=== PATIENT | female | born 1940 | race Caucasian/White ===

== ENCOUNTER 2018-07-15 12:06 | Inpatient (IN) ==
--- NOTE | 2018-07-15 12:38 | Emergency Department Note ---
[facility] Disposition Clinical Impression: Abdominal pain Disposition: Still a Patient Condition on Discharge: Fair Referrals: Provider,Referral, [Primary Care Provider] - Time of Disposition: 12:41 Medical Decision Making - Dyllan Inquiry Pt receiving controlled substance: No Medical Decision Narrative: Sent to ER for imaging, workup - r/o bowel obstruction, pancreatitis, etc [facility] [place] [facility] HPI - General Stated complaint: swalling and stomach problems Time Seen by Provider: 07/15/18 12:24 - History of Present Illness Provider Complaint: Patient has had abdominal pain since last night. Epigastric pain, radiating into her back. Started while watching TV. H/O constipation but no abdominal surgeries or bowel obstruction. Daughter states she stopped taking all meds 2 years ago. States she vomits after every meal and has lost 50 pounds. Feels like food gets hung in her throat. Doesn't have good bowel movements and uses enemas frequently. Tried enema last night but it was very painful and she did not have any results. Very small bowel movement this am but did not relieve pain. Feels like abdomen is swollen and tight as well. No dysuria. Onset (ago): day(s) (1) Location: abdomen Relieving factors: none Exacerbating factors: none Associated symptoms: nausea/vomiting Treatments prior to arrival: none - Related Data Allergies Allergy/AdvReac Type Severity Reaction Status Date / Time From BENADRYL TP CRE 1%-0.1% Allergy Unknown BREAKS Uncoded 06/28/17 15:33 OUT, ITCHING [facility] History - Hepatitis A Screen Attestation statement:: This patient has been screened for Hepatitis A risk factors. I have reviewed the patient's past medical history: Yes ROS Obtained: Yes All systems reviewed & no additional complaints - Constitutional Constitutional: Denies fever(s) - Gastrointestinal Gastrointestingal: Reports: abdominal pain, constipation, dysphagia Physical Exam - General General appearance: alert, in no apparent distress - Head Head exam: atraumatic, normocephalic, normal inspection - Eye Eye exam: Present: normal appearance, PERRL, EOMI - ENT ENT exam: Present: normal exam, normal oropharynx, mucous membranes moist, TM's normal bilaterally, normal external ear exam - Neck Neck exam: Present: normal inspection, full ROM, trachea midline. Absent: meningismus, lymphadenopathy - Chest Chest inspection: Present: normal inspection, symmetric chest wall rise. Absent: tenderness - Respiratory Respiratory exam: Present: normal lung sounds bilaterally. Absent: respiratory distress - Cardiovascular Cardiovascular exam: Present: regular rate, normal rhythm. Absent: JVD - Abdominal Exam Abdominal exam: Present: soft, distention, tenderness, diminished bowel sounds. Absent: guarding, rebound, rigidity - Extremities Exam Extremities exam: Present: normal inspection, full ROM, normal capillary refill. Absent: calf tenderness - Back Exam Back exam: Present: normal inspection. Absent: tenderness - Neurological Exam Neurological exam: Present: alert, oriented X3 - Psychiatric Psychiatric exam: Present: normal affect, normal mood - Skin Skin exam: Present: warm, dry, intact, normal color - Lymphatic Lymphatic Findings: no adenopathy
[2018-07-15 13:12] LABS: Microscopic, Urine URINE MICROSCOPIC (MICROSCOPIC)
[2018-07-15 13:15] LABS: Basophils % 0.3 % (0.1-2.0); Eosinophils % 0.5 % (0.1-12.0); Hemoglobin 16.1 g/dL (12.2-16.2); Lymphocytes % 18.3 % (10-50); Mean Corpuscular HGB Conc 32.3 g/dL (31.8-35.4); Mean Corpuscular Hemoglobin 31.7 pg (27.0-31.2); Mean Corpuscular Volume 98.1 fl (81-99); Mean Platelet Volume 8.2 fl (7.4-10.4); Monocytes # 0.3 K/mm3 (0.1-1.0); Monocytes % 5.9 % (1.7-9.3); Neutrophils # 4.1 K/mm3 (1.8-7.8); Platelet Count 162 K/mm3 (142-424); Red Cell Distribution Width 13.1 % (11.5-17.5); White Blood Count 5.5 K/mm3 (4.8-10.8)
[2018-07-15 13:16] LABS: Appearance,Urine CLEAR (Clear); Blood, Urine Negative (Negative); Color,Urine DK YELLOW (Yellow); Glucose,Urine (UA) Negative (Negative); Ketones,Urine TRACE (Negative); Leukocyte Esterase,Urine Negative (Negative); Protein,Urine 1+ (Negative); Specific Gravity, Urine >= 1.030 (1.005-1.030)
[2018-07-15 13:26] LABS: Alanine Aminotransferase 416 U/L (12-78); Albumin Level 3.5 gm/dL (3.4-5.0); Albumin/Globulin Ratio 0.9 (1.1-1.8); Alkaline Phosphatase 167 U/L (46-116); Anion Gap 11.4 mEq/L (5-15); Aspartate Amino Transferase 530 U/L (15-37); Bilirubin,Total 2.2 mg/dL (0.2-1.0); Blood Urea Nitrogen 13 mg/dL (7-18); Calcium 8.5 mg/dL (8.5-10.1); Carbon Dioxide 29 mmol/L (21.0-32.0); Chloride 104 mmol/L (98-107); Globulin 3.8 gm/dl (1.3-3.2); Glucose 150 mg/dL (74-106); Potassium 3.4 mmoL/L (3.5-5.1); Sodium 141 mmol/L (136-145); Total Protein,Serum 7.3 gm/dL (6.4-8.2)
--- NOTE | 2018-07-15 13:35 | Emergency Department Note ---
ED Disposition Clinical Impression: Abdominal pain, Acute cholecystitis due to biliary calculus, Acute pancreatitis Disposition: Still a Patient Condition on Discharge: Fair - Critical Care Critical Care Time: No Attestation: On 07/15/18, the high probability of a clinically significant, sudden or life threatening deterioration of the following system(s) required my full and direct attention, intervention and personal management. The time I documented below is in addition to time spent performing reported procedures but includes the following listed in this critical care notation. Medical Decision Making - Dyllan Inquiry Pt receiving controlled substance: No Dyllan was queried for this patient: No Vital Signs: 07/15/18 12:06 07/15/18 12:44 07/15/18 13:32 Temperature 97.8 F 97.8 F Temperature Source Oral Oral Pulse Rate [Left Radial] 86 73 72 Respiratory Rate 18 16 18 Blood Pressure [Right Arm] 170/71 H 151/85 H 142/65 H Blood Pressure Mean [Right Arm] 104 107 90 Blood Pressure Source [Right Arm] Automatic Cuff Automatic Cuff Blood Pressure Position [Right Arm] Sitting Sitting Sitting 02 Sat by Pulse Oximetry 97 98 99 Oxygen Delivery Method Room Air Room Air Room Air 07/15/18 15:00 Temperature Temperature Source Pulse Rate [Left Radial] 65 Respiratory Rate 18 Blood Pressure [Right Arm] 148/64 H Blood Pressure Mean [Right Arm] 92 Blood Pressure Source [Right Arm] Automatic Cuff Blood Pressure Position [Right Arm] Sitting 02 Sat by Pulse Oximetry 99 Oxygen Delivery Method Room Air - Lab Data Lab Results 07/15/18 13:00: WBC 5.5, RBC 5.10, Hgb 16.1, Hct 50.0 H, MCV 98.1, MCH 31.7 H, MCHC 32.3, RDW 13.1, Plt Count 162, MPV 8.2, Neut % (Auto) 75.0, Lymph % (Auto) 18.3, [place] % (Auto) 5.9, Eos % (Auto) 0.5, Baso % (Auto) 0.3, Neut # (Auto) 4.1, Lymph # (Auto) 1.0, [place] # (Auto) 0.3, Eos # (Auto) 0.0, Baso # (Auto) 0.0 07/15/18 13:00: Sodium 141, Potassium 3.4 L, Chloride 104, Carbon Dioxide 29, Anion Gap 11.4, BUN 13, Creatinine 0.88, Estimated Creat Clear 41, Estimated GFR 62, Est GFR ( Amer) 75, Glucose 150 H, Calcium 8.5, Total Bilirubin 2.2 H , AST 530 H*, ALT 416 H*, Alkaline Phosphatase 167 H, Troponin I < 0.02, Total Protein 7.3, Albumin 3.5, Globulin 3.8 H, Albumin/Globulin Ratio 0.9 L, Amylase 1751 H*, Lipase 56992 H 07/15/18 13:09: Urine Color Dk yellow, Urine Appearance Clear, Urine pH 6.0, Ur Specific [place] >= 1.030, Urine Protein 1+, Urine Glucose (UA) Negative, Urine Ketones Trace, Urine Blood Negative, Urine Nitrate Positive, Urine Bilirubin 3+ A, Urine Urobilinogen 1.0, Ur Leukocyte Esterase Negative, Urine RBC Occasional, Urine WBC 3-5, Ur Squamous Epith Cells Occasional, Urine Bacteria Trace Result diagrams: 07/15/18 13:00 07/15/18 13:00 Orders (Tests/Meds): ED MEDICATIONS Generic Name Dose Route Start Last Admin Trade Name Freq PRN Reason Stop Dose Admin Sodium Chloride 10 ml 07/15/18 13:26 Saline Flush 10ml Syringe IV 08/14/18 13:25 NEEDED PRN Maintain IV Site Discontinued Medications Generic Name Dose Route Start Last Admin Trade Name Freq PRN Reason Stop Dose Admin Diatrizoate Meglum/Diatrizoate Sod 30 ml 07/15/18 13:28 07/15/18 13:32 Gastrografin 66%-10% 30ml PO 07/15/18 13:29 30 ml ONCE ONE Administration Iopamidol 75 ml 07/15/18 14:12 07/15/18 14:12 [id number]; 75ml Vial IV 07/15/18 14:13 75 ml ONCE ONE Administration Protocol Metoclopramide HCl 5 mg 07/15/18 13:39 07/15/18 14:22 Reglan 10mg/2ml Vial IVP 07/15/18 13:40 5 mg ONCE ONE Administration Morphine Sulfate 2 mg 07/15/18 13:39 07/15/18 14:22 Morphine 2mg/Ml Syringe IV 07/15/18 13:40 2 mg ONCE ONE Administration Sodium Chloride 10 ml 07/15/18 14:12 07/15/18 14:12 Rad-Saline Flush 10ml Syringe IV 07/15/18 14:13 10 ml ONCE ONE Administration ORDERS Category Date Time Status US abdomen limited Stat Exams 07/15/18 13:44 Taken XR chest 2V Stat Exams 07/15/18 12:50 Taken Urinalysis-Acute [Urinalysis and Microscopic] Stat Lab 07/15/18 13:09 Ordered - Radiology Data #2 Image(s): Chest Image Reviewed: Yes I reviewed the patient's radiology image Preliminary Findings: Normal/NAD - ECG Data Tracing #1 Normal sinus rhythm 63/min right ulnar branch block, LVH changes, nonspecific T wave changes no acute findings unchanged from prior EKG dated August 11, 2014 ECG initial impression date: 07/15/18 ECG initial impression time: 13:05 Medical Decision Narrative: The patient underwent normal CBC her ultrasound was positive for gallbladder thickening and pancreatic edema that is consistent with her elevated LFTs, amylase and lipase, her CBD was 3 mm. I discussed with Dr. BOLTON the surgeon who advised the patient to be admitted. Eye contact Dr. Ferrer who agreed to admit her for IV fluids, IV antibiotics and surgical consultation. Abdominal Pain HPI - General Chief Complaint: Abdominal Pain Stated Complaint: swalling and stomach problems Time Seen by Provider: 07/15/18 12:24 Mode of Arrival: Ambulatory Source of Information: Patient Limitations: No Limitations Description of Symptoms (Recalled from ER Triage Doc. by RN): to ed per pvt car with c/o upper abd pain radiating into back starting today +nausea, +sob +vomiting x 1 year. states 50lb weight loss in past year. pt with hx of schitzophrenia quit taking meds approx 1 year ago. - History of Present Illness HPI narrative: 77 years old white female with schizophrenia, hypertension, and chronic abdominal complaints involving dysphagia, chronic constipation responds to enema, and postprandial nausea and vomiting. Yesterday after having a bowel movement she developed right-sided abdominal pain associated with nausea without vomiting, no hematemesis no coffee-ground emesis no melanotic stool or bleeding per rectum. She denies chest pain shortness of breath, hemoptysis palpitations flank pain dysuria hematuria or frequency. She reports the pain as sharp radiating to the back worse with standing and relieved by lying down. MD complaint: abdominal pain Onset (ago): day(s) (one day.) Consistency: constant Location: RLQ Severity: moderate Severity scale (1-10): 6 Quality: stabbing Radiation: R flank Relieving factors: other (supine position.) Exacerbating factors: other (standing. ) Associated symptoms: nausea, other (dysphagia, these symptoms are chronic. ) - Related Data Home Medications Medication Instructions Recorded Confirmed No Known Home Medications 07/15/18 07/15/18 Allergies Allergy/AdvReac Type Severity Reaction Status Date / Time From BENADRYL TP CRE 1%-0.1% Allergy Unknown BREAKS Uncoded 06/28/17 15:33 OUT, ITCHING [facility] History - Hepatitis A Screen Drug use history?: No High risk sexual behaviors?: No History of sexually transmitted infection?: No Currently employed?: No Childcare worker?: No Do you have indoor plumbing?: Yes Do you have electricity?: Yes Attestation statement:: This patient has been screened for Hepatitis A risk factors. I have reviewed the patient's past medical history: No - Social History Educational Level: Completed High School Alcohol Intake: never - Psychiatric History Expresses thoughts of harming self/others: None Suicide Plan Description: No Plan ROS Obtained: Yes All systems reviewed & no additional complaints Physical Exam - General General appearance: alert, in no apparent distress - Head Head exam: atraumatic, normocephalic, normal inspection - Eye Eye exam: Present: normal appearance, PERRL, EOMI. Absent: scleral icterus, nystagmus - ENT ENT exam: Present: normal exam, normal oropharynx, mucous membranes moist, TM's normal bilaterally, normal external ear exam - Neck Neck exam: Present: normal inspection, full ROM, trachea midline. Absent: tenderness, meningismus, lymphadenopathy - Chest Chest inspection: Present: normal inspection, symmetric chest wall rise. Absent: tenderness - Respiratory Respiratory exam: Present: normal lung sounds bilaterally. Absent: respiratory distress, wheezes, stridor - Cardiovascular Cardiovascular exam: Present: regular rate, normal rhythm, normal heart sounds. Absent: JVD - Abdominal Exam Abdominal exam: Present: soft, tenderness, rigidity, normal bowel sounds, other (The patient has diffuse abdominal tenderness to superficial palpation with no focal tenderness, voluntary rigidity and guarding, no distention, and positive bowel sounds.). Absent: distention, guarding, rebound, Manning's sign, tenderness at McBurney's Point - Rectal Exam Rectal exam: Present: normal inspection, normal rectal tone, heme (-) stool. Absent: fecal impaction, hemorrhoids, mass, tenderness - External exam: Present: normal external exam - Extremities Exam Extremities exam: Present: normal inspection, full ROM, normal capillary refill. Absent: calf tenderness - Back Exam Back exam: Present: normal inspection. Absent: tenderness, CVA tenderness (R), CVA tenderness (L), paraspinal tenderness, vertebral tenderness - Neurological Exam Neurological exam: Present: alert, oriented X3, CN II-XII intact, motor sensory deficit, reflexes normal - Psychiatric Psychiatric exam: Present: normal affect, normal mood - Skin Skin exam: Present: warm, dry, intact, normal color - Lymphatic Lymphatic Findings: no adenopathy
[2018-07-15 13:47] LABS: Amylase 1751 U/L (25-115)
[2018-07-15 13:50] LABS: Bacteria,Urine Trace /lpf; RBC,Urine Occasional #/hpf (0-3); Squamous Epithelial Cell,Urine Occasional #/hpf (0-5)
[2018-07-15 13:52] LABS: Bilirubin,Urine 3+ (Negative)
[2018-07-15 14:02] LABS: Lipase 26305 u/L (73-393)
--- NOTE | 2018-07-15 17:39 | Consult Report ---
*Admission Date: 07/15/18 *Chief complaint: Abdominal pain *History of present illness: Patient is a pleasant 77-year-old white female with reported history of bipolar disorder who has not seen a physician for several years. She states that she does have some issues with chronic constipation. She states that last night between 10 or 11:00 she had developed onset of mid abdominal pain. This transiently improved after she had taken some Aleve and then recurred approximately 2 or 3:00 in the morning. She has no prior similar history. No known prior history of gallbladder disease. She had presented to the emergency department where she was seen and evaluated. Blood work revealed evidence of pancreatitis with elevated pancreatic enzymes. She does have some water elevation of. White blood cell count is normal. CT scan reveals radiographic evidence of gallstones and pancreatitis. She had ultrasound revealing gallstones with 3 mm common bile duct. Surgery was contacted. She was admitted for inpatient management to the medical service with surgical consultation. Review of Systems - Review of Systems Review of systems:: pertinent systems reviewed and negative unless documented below - Constitutional Reports anorexia, Denies chills - Eyes Denies change in vision - ENT Denies abnormal hearing - *Cardiovascular Denies chest pain - *Respiratory Denies cough - *Gastrointestinal Reports abdominal pain - *Genitourinary Denies blood in urine - *Musculoskeletal Denies abnormal walking [facility] History Medical History: Reports:: Hypertension - *Social History Educational Level: Completed High School Alcohol Intake: never Occupational Status: retired Housing: house Household Members: family - Psychiatric History Expresses thoughts of harming self/others: None Suicide Plan Description: Clear *Family Hx:: Cancer, Coronary Artery Disease, Diabetes, Heart Attack, Hyperlipidemia, Hypertension Meds Home Medications Medication Instructions Recorded Confirmed Type No Known Home Medications 07/15/18 07/15/18 History Allergies Allergy/AdvReac Type Severity Reaction Status Date / Time From BENADRYL TP CRE 1%-0.1% Allergy Unknown BREAKS Uncoded 06/28/17 15:33 OUT, ITCHING Exam Vital signs and Labs for Last 24 Hours: Temp Pulse Resp BP Pulse Ox 98.4 F 78 20 146/56 H 98 07/15/18 16:20 07/15/18 16:20 07/15/18 16:20 07/15/18 16:20 07/15/18 16:20 Laboratory Results - last 24 hr 07/15/18 13:00: WBC 5.5, RBC 5.10, Hgb 16.1, Hct 50.0 H, MCV 98.1, MCH 31.7 H, MCHC 32.3, RDW 13.1, Plt Count 162, MPV 8.2, Neut % (Auto) 75.0, Lymph % (Auto) 18.3, [place] % (Auto) 5.9, Eos % (Auto) 0.5, Baso % (Auto) 0.3, Neut # (Auto) 4.1, Lymph # (Auto) 1.0, [place] # (Auto) 0.3, Eos # (Auto) 0.0, Baso # (Auto) 0.0 07/15/18 13:00: Sodium 141, Potassium 3.4 L, Chloride 104, Carbon Dioxide 29, Anion Gap 11.4, BUN 13, Creatinine 0.88, Estimated Creat Clear 41, Estimated GFR 62, Est GFR ( Amer) 75, Glucose 150 H, Calcium 8.5, Total Bilirubin 2.2 H , AST 530 H*, ALT 416 H*, Alkaline Phosphatase 167 H, Troponin I < 0.02, Total Protein 7.3, Albumin 3.5, Globulin 3.8 H, Albumin/Globulin Ratio 0.9 L, Amylase 1751 H*, Lipase 38864 H 07/15/18 13:00: Lactate Dehydrogenase 595 H 07/15/18 13:09: Urine Color Dk yellow, Urine Appearance Clear, Urine pH 6.0, Ur Specific [place] >= 1.030, Urine Protein 1+, Urine Glucose (UA) Negative, Urine Ketones Trace, Urine Blood Negative, Urine Nitrate Positive, Urine Bilirubin 3+ A, Urine Urobilinogen 1.0, Ur Leukocyte Esterase Negative, Urine RBC Occasional, Urine WBC 3-5, Ur Squamous Epith Cells Occasional, Urine Bacteria Trace I & O for Last 24 hours: Intake & Output 07/13/18 07/14/18 07/15/18 07/16/18 11:59 11:59 11:59 11:59 Weight 123 lb 5 oz - *Routine HEENT Exam Head: Present: normocephalic Eye: Present: EOMI, PERRL ENT: Present: mucous membranes moist - *Routine Neck Exam Present: supple. Absent: lymphadenopathy - *Routine Respiratory Exam Present: CTA bilaterally - *Routine Cardiovascular Exam Present: RRR - *Routine Abdominal Exam Present: soft, normoactive bowel sounds, tenderness. Absent: rebound, guarding Comments: Patient is tender in the epigastrium and right upper quadrant without rebound. - *Routine Extremities Exam Absent: cyanosis, clubbing, edema - *Routine Skin Exam Present: warm. Absent: rash - *Routine Neurological Exam Present: alert, oriented X3 - Detailed Eye Exam Eyelids: Left normal inspection Results - Labs 07/15/18 13:00 07/15/18 13:00 Laboratory Results - last 24 hr 07/15/18 13:00: WBC 5.5, RBC 5.10, Hgb 16.1, Hct 50.0 H, MCV 98.1, MCH 31.7 H, MCHC 32.3, RDW 13.1, Plt Count 162, MPV 8.2, Neut % (Auto) 75.0, Lymph % (Auto) 18.3, [place] % (Auto) 5.9, Eos % (Auto) 0.5, Baso % (Auto) 0.3, Neut # (Auto) 4.1, Lymph # (Auto) 1.0, [place] # (Auto) 0.3, Eos # (Auto) 0.0, Baso # (Auto) 0.0 07/15/18 13:00: Sodium 141, Potassium 3.4 L, Chloride 104, Carbon Dioxide 29, Anion Gap 11.4, BUN 13, Creatinine 0.88, Estimated Creat Clear 41, Estimated GFR 62, Est GFR ( Amer) 75, Glucose 150 H, Calcium 8.5, Total Bilirubin 2.2 H , AST 530 H*, ALT 416 H*, Alkaline Phosphatase 167 H, Troponin I < 0.02, Total Protein 7.3, Albumin 3.5, Globulin 3.8 H, Albumin/Globulin Ratio 0.9 L, Amylase 1751 H*, Lipase 23822 H 07/15/18 13:00: Lactate Dehydrogenase 595 H 07/15/18 13:09: Urine Color Dk yellow, Urine Appearance Clear, Urine pH 6.0, Ur Specific [place] >= 1.030, Urine Protein 1+, Urine Glucose (UA) Negative, Urine Ketones Trace, Urine Blood Negative, Urine Nitrate Positive, Urine Bilirubin 3+ A, Urine Urobilinogen 1.0, Ur Leukocyte Esterase Negative, Urine RBC Occasional, Urine WBC 3-5, Ur Squamous Epith Cells Occasional, Urine Bacteria Trace Assessment and Plan - Assessment and plan all Dx Assessment and Plan for all problems:: Patient appears to have biliary pancreatitis with secondary cholecystitis. Likelihood of retained common duct stone with ongoing choledocholithiasis is unlikely given the only slight elevation of bilirubin and alkaline phosphatase and 3 mm common bile duct on ultrasound. At this time plan for medical management of the pancreatitis with bowel rest, IV fluid hydration, and antibiotics. If she continues to improve based on clinical scenario and laboratory findings likely plan for cholecystectomy with possible intraoperative cholangiogram in 2 or 3 days. However, if she develops progressive elevation of bilirubin which would be suggestive of ongoing choledocholithiasis she may require more urgent ERCP. At this point would plan for maintaining n.p.o. status other than ice chips. If she shows some improvement may start clear liquids tomorrow. Patient does have appreciable pancreatitis, most assuredly biliary in etiology, meeting 3 of 5 initial Michele's criteria giving a mortality of at least 16%.
[2018-07-16 07:14] LABS: Basophils % 0.2 % (0.1-2.0); Eosinophils # 0.1 K/mm3 (0.0-0.4); Eosinophils % 0.8 % (0.1-12.0); Hematocrit 42.3 % (37.0-47.0); Lymphocytes % 12.2 % (10-50); Mean Corpuscular Hemoglobin 31.4 pg (27.0-31.2); Mean Corpuscular Volume 98.1 fl (81-99); Mean Platelet Volume 8.3 fl (7.4-10.4); Monocytes # 0.5 K/mm3 (0.1-1.0); Monocytes % 5.9 % (1.7-9.3); Neutrophils # 6.7 K/mm3 (1.8-7.8); Neutrophils % 80.9 % (37.0-80.0); Platelet Count 134 K/mm3 (142-424); Red Blood Count 4.31 M/mm3 (4.20-5.40); Red Cell Distribution Width 13.1 % (11.5-17.5); White Blood Count 8.2 K/mm3 (4.8-10.8)
[2018-07-16 07:15] LABS: Hemoglobin 13.5 g/dL (12.2-16.2)
[2018-07-16 07:21] LABS: Albumin Level 2.7 gm/dL (3.4-5.0); Albumin/Globulin Ratio 0.9 (1.1-1.8); Anion Gap 9.5 mEq/L (5-15); Bilirubin,Total 1.1 mg/dL (0.2-1.0); Calcium 7.8 mg/dL (8.5-10.1); Potassium 3.5 mmoL/L (3.5-5.1); Total Protein,Serum 5.7 gm/dL (6.4-8.2)
--- NOTE | 2018-07-16 08:27 | Progress Note ---
Subjective Narrative: Patient's main complaint is not sleeping well due to sinus congestion. She states that her abdomen feels better. It is less "sore". Exam Vital signs and Labs for Last 24 Hours: Temp Pulse Resp BP Pulse Ox 98.8 F 75 22 142/59 H 97 07/16/18 03:40 07/16/18 03:40 07/16/18 03:40 07/16/18 03:40 07/16/18 03:40 Laboratory Results - last 24 hr 07/15/18 13:00: WBC 5.5, RBC 5.10, Hgb 16.1, Hct 50.0 H, MCV 98.1, MCH 31.7 H, MCHC 32.3, RDW 13.1, Plt Count 162, MPV 8.2, Neut % (Auto) 75.0, Lymph % (Auto) 18.3, [place] % (Auto) 5.9, Eos % (Auto) 0.5, Baso % (Auto) 0.3, Neut # (Auto) 4.1, Lymph # (Auto) 1.0, [place] # (Auto) 0.3, Eos # (Auto) 0.0, Baso # (Auto) 0.0 07/15/18 13:00: Sodium 141, Potassium 3.4 L, Chloride 104, Carbon Dioxide 29, Anion Gap 11.4, BUN 13, Creatinine 0.88, Estimated Creat Clear 41, Estimated GFR 62, Est GFR ( Amer) 75, Glucose 150 H, Calcium 8.5, Total Bilirubin 2.2 H , AST 530 H*, ALT 416 H*, Alkaline Phosphatase 167 H, Troponin I < 0.02, Total Protein 7.3, Albumin 3.5, Globulin 3.8 H, Albumin/Globulin Ratio 0.9 L, Amylase 1751 H*, Lipase 03433 H 07/15/18 13:00: Lactate Dehydrogenase 595 H 07/15/18 13:09: Urine Color Dk yellow, Urine Appearance Clear, Urine pH 6.0, Ur Specific [place] >= 1.030, Urine Protein 1+, Urine Glucose (UA) Negative, Urine Ketones Trace, Urine Blood Negative, Urine Nitrate Positive, Urine Bilirubin 3+ A, Urine Urobilinogen 1.0, Ur Leukocyte Esterase Negative, Urine RBC Occasional, Urine WBC 3-5, Ur Squamous Epith Cells Occasional, Urine Bacteria Trace 07/16/18 06:45: Sodium 142, Potassium 3.5, Chloride 108 H, Carbon Dioxide 28, Anion Gap 9.5, BUN 8 D, Creatinine 0.70 D, Estimated Creat Clear 42, Estimated GFR 81, Est GFR ( Amer) 98 D, Glucose 121 H, Calcium 7.8 L, Total Bilirubin 1.1 H, AST 185 H D, ALT 250 H D, Alkaline Phosphatase 130 H, Total Protein 5.7 L, Albumin 2.7 L D, Globulin 3.0, Albumin/Globulin Ratio 0.9 L, Amylase 591 H* D, Lipase 4753 H 07/16/18 06:45: WBC 8.2 D, RBC 4.31, Hgb 13.5 D, Hct 42.3, MCV 98.1, MCH 31.4 H, MCHC 32.0, RDW 13.1, Plt Count 134 L, MPV 8.3, Neut % (Auto) 80.9 H, Lymph % (Auto) 12.2, [place] % (Auto) 5.9, Eos % (Auto) 0.8, Baso % (Auto) 0.2, Neut # (Auto) 6.7, Lymph # (Auto) 1.0, [place] # (Auto) 0.5, Eos # (Auto) 0.1, Baso # (Auto) 0.0 I & O for Last 24 hours: Intake & Output 07/13/18 07/14/18 07/15/18 07/16/18 11:59 11:59 11:59 11:59 Intake Total 1276 / 1276 Balance 1276 / 1276 Weight 123 lb 5 oz - Constitutional no acute distress - *Routine Abdominal Exam Present: soft Comments: She has some tenderness in the upper mid abdomen right upper quadrant without guarding or rebound Progress Note: A&P Assessment and Plan for All Diagnoses:: Patient has resolving biliary pancreatitis. Blood work is improving. At this point plan to give limited clear liquid diet. Continue with medical management of pancreatitis and tentatively, assuming continued improvement, plan for possible cholecystectomy with cholangiogram in a few days.
--- NOTE | 2018-07-16 08:58 | History & Physical Report ---
*Admission Date: 07/15/18 *Chief complaint: andominal pain *History of present illness: 77 year old female who states she has not seen a physician in the past 6 years presented to [facility] ER complaining of abdominal pain associated with nausea and vomiting. She has had these symptoms off and on for some time but that became much worse over the past few days. Emesis consisted of ingested food, she denies diarrhea but has had constipation for quite a long time. She has had subjective fever, no sick contacts or recent travel. She has had some weight loss. [facility] History I have reviewed the patient's past medical history: Yes Medical History: Reports:: Hypertension Other Medical History: Reports: Other (constipation) Comment: Patient does not know her immunization history. - *Social History Educational Level: Completed High School Alcohol Intake: never Occupational Status: retired Housing: house Household Members: family - Psychiatric History Expresses thoughts of harming self/others: None Suicide Plan Description: Clear Pschychiatric History:: Reports:: Bipolar Disorder *Family Hx:: Cancer, Coronary Artery Disease, Diabetes, Heart Attack, Hyperlipidemia, Hypertension Review of Systems - Constitutional Reports chills - Eyes Denies blurry vision - ENT Reports dry mouth - *Cardiovascular Denies chest pain - *Respiratory Denies cough - *Genitourinary Denies difficulty urinating - *Musculoskeletal Denies joint pain - Integumentary/Breasts Denies rash - *Neurologic Denies abnormal walking - Endocrine Denies increased urination - Hematologic/Lymphatic Denies easy bruising Meds Home Medications Medication Instructions Recorded Confirmed Type No Known Home Medications 07/15/18 07/15/18 History Allergies Allergy/AdvReac Type Severity Reaction Status Date / Time diphenhydramine Allergy Rash Verified 07/16/18 08:37 [From Benadryl] Exam Vital signs and Labs for Last 24 Hours: Temp Pulse Resp BP Pulse Ox 99.4 F 83 20 146/52 H 96 07/16/18 08:00 07/16/18 08:00 07/16/18 08:00 07/16/18 08:00 07/16/18 08:00 Laboratory Results - last 24 hr 07/15/18 13:00: WBC 5.5, RBC 5.10, Hgb 16.1, Hct 50.0 H, MCV 98.1, MCH 31.7 H, MCHC 32.3, RDW 13.1, Plt Count 162, MPV 8.2, Neut % (Auto) 75.0, Lymph % (Auto) 18.3, [place] % (Auto) 5.9, Eos % (Auto) 0.5, Baso % (Auto) 0.3, Neut # (Auto) 4.1, Lymph # (Auto) 1.0, Clay # (Auto) 0.3, Eos # (Auto) 0.0, Baso # (Auto) 0.0 07/15/18 13:00: Sodium 141, Potassium 3.4 L, Chloride 104, Carbon Dioxide 29, Anion Gap 11.4, BUN 13, Creatinine 0.88, Estimated Creat Clear 41, Estimated GFR 62, Est GFR ( Amer) 75, Glucose 150 H, Calcium 8.5, Total Bilirubin 2.2 H , AST 530 H*, ALT 416 H*, Alkaline Phosphatase 167 H, Troponin I < 0.02, Total Protein 7.3, Albumin 3.5, Globulin 3.8 H, Albumin/Globulin Ratio 0.9 L, Amylase 1751 H*, Lipase 69234 H 07/15/18 13:00: Lactate Dehydrogenase 595 H 07/15/18 13:09: Urine Color Dk yellow, Urine Appearance Clear, Urine pH 6.0, Ur Specific Daisy >= 1.030, Urine Protein 1+, Urine Glucose (UA) Negative, Urine Ketones Trace, Urine Blood Negative, Urine Nitrate Positive, Urine Bilirubin 3+ A, Urine Urobilinogen 1.0, Ur Leukocyte Esterase Negative, Urine RBC Occasional, Urine WBC 3-5, Ur Squamous Epith Cells Occasional, Urine Bacteria Trace 07/16/18 06:45: Sodium 142, Potassium 3.5, Chloride 108 H, Carbon Dioxide 28, Anion Gap 9.5, BUN 8 D, Creatinine 0.70 D, Estimated Creat Clear 42, Estimated GFR 81, Est GFR ( Amer) 98 D, Glucose 121 H, Calcium 7.8 L, Total Bilirubin 1.1 H, AST 185 H D, ALT 250 H D, Alkaline Phosphatase 130 H, Total Protein 5.7 L, Albumin 2.7 L D, Globulin 3.0, Albumin/Globulin Ratio 0.9 L, Amylase 591 H* D, Lipase 4753 H 07/16/18 06:45: WBC 8.2 D, RBC 4.31, Hgb 13.5 D, Hct 42.3, MCV 98.1, MCH 31.4 H, MCHC 32.0, RDW 13.1, Plt Count 134 L, MPV 8.3, Neut % (Auto) 80.9 H, Lymph % (Auto) 12.2, Clay % (Auto) 5.9, Eos % (Auto) 0.8, Baso % (Auto) 0.2, Neut # (Auto) 6.7, Lymph # (Auto) 1.0, Clay # (Auto) 0.5, Eos # (Auto) 0.1, Baso # (Auto) 0.0 I & O for Last 24 hours: Intake & Output 07/13/18 07/14/18 07/15/18 07/16/18 11:59 11:59 11:59 11:59 Intake Total 1276 / 1276 Balance 1276 / 1276 Weight 123 lb 5 oz - Constitutional no acute distress - *Routine HEENT Exam Head: Present: normocephalic Eye: Present: EOMI ENT: Present: mucous membranes moist - *Routine Neck Exam Present: supple. Absent: lymphadenopathy - *Routine Respiratory Exam Present: CTA bilaterally - *Routine Cardiovascular Exam Present: RRR - *Routine Abdominal Exam Present: soft, normoactive bowel sounds, tenderness (minimal epigastric) - *Routine Extremities Exam Absent: cyanosis, clubbing, edema - *Routine Skin Exam Present: warm. Absent: rash - *Routine Neurological Exam Present: alert. Absent: sensory deficit, motor deficit H&P: Result - Imaging and Cardiology CT scan - abdomen Status: final report US - abdomen Status: final report Chest x-ray Status: final report Assessment and Plan (1) Abdominal pain Current visit: Yes Status: Acute Category: Medical Code(s): R10.9 - Unspecified abdominal pain (2) Acute cholecystitis due to biliary calculus Current visit: Yes Status: Acute Category: Medical Code(s): K80.00 - Calculus of gallbladder with acute cholecystitis without obstruction (3) Acute pancreatitis Current visit: Yes Status: Acute Category: Medical Code(s): K85.90 - Acute pancreatitis without necrosis or infection, unspecified - Assessment and plan all Dx Assessment and Plan for all problems:: Patient admitted for further evaluation and treatment of her acute cholecystitis and panctreatitis. She has improved since admission. Case discussed with Dr. Lopez. He is planning surgery in a few days. OK for clear liquids today.
--- NOTE | 2018-07-16 10:54 | Pharmacy Consult Notes ---
[facility] Pharmacy VTE Monitoring - Patient Demographics Admission date: 07/16/18 Report Date: 07/16/18 Time: 10:53 Allergies/Adverse Reactions: Patient Allergies diphenhydramine [From Benadryl] Allergy (Verified 07/16/18 08:37) Rash Height: 1.63 m Weight: 55.934 kg Patient Problems: Current Active Problems Abdominal pain (Acute) Acute cholecystitis due to biliary calculus (Acute) Acute pancreatitis (Acute) - VTE Risk Labs: VTE Related Lab Results Hgb 13.5 g/dL (12.2-16.2) D 07/16/18 06:45 Hct 42.3 % (37.0-47.0) 07/16/18 06:45 Plt Count 134 K/mm3 (142-424) L 07/16/18 06:45 BUN 8 mg/dL (7-18) D 07/16/18 06:45 Creatinine 0.70 mg/dL (0.55-1.02) D 07/16/18 06:45 Estimated Creat Clear 42 mL/min (50-200) 07/16/18 06:45 Was VTE Risk Assessment Performed: Yes VTE Score: 1 VTE Risk Level: Very Low Risk - Prophylaxis Types of VTE Prophylaxis: TEDS Knee High Location of Applied Device: Bilateral Lower Extremeties (MARY HOSE ORDERED)
[2018-07-17 06:21] LABS: Basophils % 0.2 % (0.1-2.0); Eosinophils # 0.1 K/mm3 (0.0-0.4); Eosinophils % 0.9 % (0.1-12.0); Hematocrit 39.3 % (37.0-47.0); Hemoglobin 12.5 g/dL (12.2-16.2); Lymphocytes # 1.4 K/mm3 (0.7-4.5); Lymphocytes % 15.1 % (10-50); Mean Corpuscular HGB Conc 31.9 g/dL (31.8-35.4); Mean Corpuscular Hemoglobin 31.5 pg (27.0-31.2); Mean Corpuscular Volume 98.8 fl (81-99); Mean Platelet Volume 8.4 fl (7.4-10.4); Monocytes # 0.7 K/mm3 (0.1-1.0); Monocytes % 7.1 % (1.7-9.3); Neutrophils % 76.6 % (37.0-80.0); Platelet Count 136 K/mm3 (142-424); Red Blood Count 3.98 M/mm3 (4.20-5.40); Red Cell Distribution Width 13.4 % (11.5-17.5); White Blood Count 9.1 K/mm3 (4.8-10.8)
[2018-07-17 06:33] LABS: Albumin Level 2.5 gm/dL (3.4-5.0); Albumin/Globulin Ratio 0.8 (1.1-1.8); Anion Gap 11.4 mEq/L (5-15); Bilirubin,Total 1.1 mg/dL (0.2-1.0); Calcium 7.9 mg/dL (8.5-10.1); Potassium 3.4 mmoL/L (3.5-5.1); Total Protein,Serum 5.5 gm/dL (6.4-8.2)
--- NOTE | 2018-07-17 07:51 | Progress Note ---
Subjective Patient reports: feels better Narrative: Patient overall is much better. She did have some mild nausea with clear liquids yesterday. Abdominal pain has improved. She does state that she feels somewhat bloated. Exam Vital signs and Labs for Last 24 Hours: Temp Pulse Resp BP Pulse Ox 98.2 F 78 18 130/50 L 96 07/17/18 04:00 07/17/18 04:00 07/17/18 04:00 07/17/18 04:00 07/17/18 04:00 Laboratory Results - last 24 hr 07/17/18 06:00: WBC 9.1, RBC 3.98 L, Hgb 12.5, Hct 39.3, MCV 98.8, MCH 31.5 H, MCHC 31.9, RDW 13.4, Plt Count 136 L, MPV 8.4, Neut % (Auto) 76.6, Lymph % (Auto) 15.1, [place] % (Auto) 7.1, Eos % (Auto) 0.9, Baso % (Auto) 0.2, Neut # (Auto) 7.0, Lymph # (Auto) 1.4, [place] # (Auto) 0.7, Eos # (Auto) 0.1, Baso # (Auto) 0.0 07/17/18 06:00: Sodium 142, Potassium 3.4 L, Chloride 108 H, Carbon Dioxide 26, Anion Gap 11.4, BUN 4 L D, Creatinine 0.44 L D, Estimated Creat Clear 42, Estimated GFR 139, Est GFR ( Amer) 168 D, Glucose 112 H, Calcium 7.9 L, Total Bilirubin 1.1 H, AST 77 H D, ALT 161 H D, Alkaline Phosphatase 110, Total Protein 5.5 L, Albumin 2.5 L, Globulin 3.0, Albumin/Globulin Ratio 0.8 L, Amylase 155 H D, Lipase 425 H I & O for Last 24 hours: Intake & Output 07/14/18 07/15/18 07/16/18 07/17/18 11:59 11:59 11:59 11:59 Intake Total 1376 / 1376 3205 / 3205 Balance 1376 / 1376 3205 / 3205 Weight 123 lb 5 oz - *Routine Abdominal Exam Present: soft Progress Note: A&P (1) Abdominal pain Status: Acute Current Visit: Yes (2) Acute cholecystitis due to biliary calculus Status: Acute Current Visit: Yes (3) Acute pancreatitis Status: Acute Current Visit: Yes Assessment and Plan for All Diagnoses:: Labs showing continued significant improvement. We will give some full liquids today. Tentatively planned cholecystectomy with possible cholangiogram tomorrow.
--- NOTE | 2018-07-17 08:37 | Progress Note ---
<Tran Hanley - Last Filed: 07/17/18 08:34> Internal Medicine - PN: Subj *Date: 07/17/18 *Time: 08:34 Interval history: Patient states that she is better. She describes her abdomen as being sore. She is very hungry. She did have some nausea last evening but no vomiting. She took clear liquids this morning without difficulties. Bowels have not moved for 4 days. She denies chest pain and shortness of breath. She ambulates to the bathroom without problems and is voiding QS. Liver function studies, amylase, and lipase have significantly improved. She has been seen by Dr. Lopez this a.m. and as per note will have surgery in the a.m.. He has advanced her to full liquids. Exam Vital signs and Labs for Last 24 Hours: Temp Pulse Resp BP Pulse Ox 97.7 F 91 H 16 118/55 L 95 07/17/18 07:55 07/17/18 07:55 07/17/18 07:55 07/17/18 07:55 07/17/18 07:55 Laboratory Results - last 24 hr 07/17/18 06:00: WBC 9.1, RBC 3.98 L, Hgb 12.5, Hct 39.3, MCV 98.8, MCH 31.5 H, MCHC 31.9, RDW 13.4, Plt Count 136 L, MPV 8.4, Neut % (Auto) 76.6, Lymph % (Auto) 15.1, [place] % (Auto) 7.1, Eos % (Auto) 0.9, Baso % (Auto) 0.2, Neut # (Auto) 7.0, Lymph # (Auto) 1.4, [place] # (Auto) 0.7, Eos # (Auto) 0.1, Baso # (Auto) 0.0 07/17/18 06:00: Sodium 142, Potassium 3.4 L, Chloride 108 H, Carbon Dioxide 26, Anion Gap 11.4, BUN 4 L D, Creatinine 0.44 L D, Estimated Creat Clear 42, Estimated GFR 139, Est GFR ( Amer) 168 D, Glucose 112 H, Calcium 7.9 L, Total Bilirubin 1.1 H, AST 77 H D, ALT 161 H D, Alkaline Phosphatase 110, Total Protein 5.5 L, Albumin 2.5 L, Globulin 3.0, Albumin/Globulin Ratio 0.8 L, Amylase 155 H D, Lipase 425 H I & O for Last 24 hours: Intake & Output 07/14/18 07/15/18 07/16/18 07/17/18 11:59 11:59 11:59 11:59 Intake Total 1376 / 1376 3665 / 3665 Balance 1376 / 1376 3665 / 3665 Weight 123 lb 5 oz - Constitutional no acute distress Comments: Appears comfortable lying in the bed. - *Routine Respiratory Exam Present: CTA bilaterally (Anteriorly and posteriorly) - *Routine Cardiovascular Exam Present: RRR - *Routine Abdominal Exam Present: soft, tenderness Comments: Mild distention. Decreased bowel sounds. - *Routine Extremities Exam Present: pulses intact. Absent: edema, calf tenderness - *Routine Neurological Exam Present: alert, oriented X3 Assessment and Plan (1) Abdominal pain Current visit: Yes Status: Acute Category: Medical Code(s): R10.9 - Unspecified abdominal pain (2) Acute cholecystitis due to biliary calculus Current visit: Yes Status: Acute Category: Medical Code(s): K80.00 - Calculus of gallbladder with acute cholecystitis without obstruction (3) Acute pancreatitis Current visit: Yes Status: Acute Category: Medical Code(s): K85.90 - Acute pancreatitis without necrosis or infection, unspecified - Assessment and plan all Dx Assessment and Plan for all problems:: Diet has been advanced to full liquids. We will continue with IV fluids for now. Surgery is planned for the a.m. <Justin Ferrer - Last Filed: 07/17/18 08:44> Exam Vital signs and Labs for Last 24 Hours: Temp Pulse Resp BP Pulse Ox 97.7 F 91 H 16 118/55 L 95 07/17/18 07:55 07/17/18 07:55 07/17/18 07:55 07/17/18 07:55 07/17/18 07:55 Laboratory Results - last 24 hr 07/17/18 06:00: WBC 9.1, RBC 3.98 L, Hgb 12.5, Hct 39.3, MCV 98.8, MCH 31.5 H, MCHC 31.9, RDW 13.4, Plt Count 136 L, MPV 8.4, Neut % (Auto) 76.6, Lymph % (Auto) 15.1, [place] % (Auto) 7.1, Eos % (Auto) 0.9, Baso % (Auto) 0.2, Neut # (Auto) 7.0, Lymph # (Auto) 1.4, [place] # (Auto) 0.7, Eos # (Auto) 0.1, Baso # (Auto) 0.0 07/17/18 06:00: Sodium 142, Potassium 3.4 L, Chloride 108 H, Carbon Dioxide 26, Anion Gap 11.4, BUN 4 L D, Creatinine 0.44 L D, Estimated Creat Clear 42, Estimated GFR 139, Est GFR ( Amer) 168 D, Glucose 112 H, Calcium 7.9 L, Total Bilirubin 1.1 H, AST 77 H D, ALT 161 H D, Alkaline Phosphatase 110, Total Protein 5.5 L, Albumin 2.5 L, Globulin 3.0, Albumin/Globulin Ratio 0.8 L, Amylase 155 H D, Lipase 425 H I & O for Last 24 hours: Intake & Output 07/14/18 07/15/18 07/16/18 07/17/18 11:59 11:59 11:59 11:59 Intake Total 1376 / 1376 3665 / 3665 Balance 1376 / 1376 3665 / 3665 Weight 123 lb 5 oz Assessment and Plan (1) Abdominal pain Current visit: Yes Status: Acute Category: Medical Code(s): R10.9 - Unspecified abdominal pain (2) Acute cholecystitis due to biliary calculus Current visit: Yes Status: Acute Category: Medical Code(s): K80.00 - Calculus of gallbladder with acute cholecystitis without obstruction (3) Acute pancreatitis Current visit: Yes Status: Acute Category: Medical Code(s): K85.90 - Acute pancreatitis without necrosis or infection, unspecified - Assessment and plan all Dx Assessment and Plan for all problems:: Saw patient, agree with above note.
--- NOTE | 2018-07-18 08:27 | Progress Note ---
<Tran Hanley - Last Filed: 07/18/18 08:27> Internal Medicine - PN: Subj Interval history: Patient took full liquid diet yesterday without issues. She has some soreness in her upper abdomen. She had 4 diarrhea stools during the night with last 1 being this a.m.. She does not feel bloated now. She is n.p.o. at present for probable surgery today. She does not know the time. She denies chest pain and shortness breath. She ambulates to the bathroom without difficulty. Exam Vital signs and Labs for Last 24 Hours: Temp Pulse Resp BP Pulse Ox 98.9 F 78 18 128/59 L 96 07/18/18 04:00 07/18/18 04:00 07/18/18 04:00 07/18/18 04:00 07/18/18 04:00 I & O for Last 24 hours: Intake & Output 07/15/18 07/16/18 07/17/18 07/18/18 11:59 11:59 11:59 11:59 Intake Total 1376 / 1376 3765 / 3765 1120 / 1120 Balance 1376 / 1376 3765 / 3765 1120 / 1120 Weight 123 lb 5 oz 123 lb 5.014 oz - Constitutional no acute distress Comments: Awakened for exam - *Routine Respiratory Exam Present: CTA bilaterally (Anteriorly and posteriorly) - *Routine Cardiovascular Exam Present: RRR - *Routine Abdominal Exam Present: soft, normoactive bowel sounds, tenderness. Absent: distended - *Routine Extremities Exam Present: pulses intact. Absent: edema, calf tenderness - *Routine Neurological Exam Present: alert, oriented X3 Assessment and Plan (1) Abdominal pain Current visit: Yes Status: Acute Category: Medical Code(s): R10.9 - Unspecified abdominal pain (2) Acute cholecystitis due to biliary calculus Current visit: Yes Status: Acute Category: Medical Code(s): K80.00 - Calculus of gallbladder with acute cholecystitis without obstruction (3) Acute pancreatitis Current visit: Yes Status: Acute Category: Medical Code(s): K85.90 - Acute pancreatitis without necrosis or infection, unspecified - Assessment and plan all Dx Assessment and Plan for all problems:: Plan is for cholecystectomy sometime today. Labs to be repeated in a.m. <Justin Ferrer - Last Filed: 07/18/18 08:41> Exam Vital signs and Labs for Last 24 Hours: Temp Pulse Resp BP Pulse Ox 98.9 F 78 18 128/59 L 96 07/18/18 04:00 07/18/18 04:00 07/18/18 04:00 07/18/18 04:00 07/18/18 08:00 I & O for Last 24 hours: Intake & Output 07/15/18 07/16/18 07/17/18 07/18/18 11:59 11:59 11:59 11:59 Intake Total 1376 / 1376 3765 / 3765 1120 / 1120 Balance 1376 / 1376 3765 / 3765 1120 / 1120 Weight 123 lb 5 oz 123 lb 5.014 oz Assessment and Plan (1) Abdominal pain Current visit: Yes Status: Acute Category: Medical Code(s): R10.9 - Unspecified abdominal pain (2) Acute cholecystitis due to biliary calculus Current visit: Yes Status: Acute Category: Medical Code(s): K80.00 - Calculus of gallbladder with acute cholecystitis without obstruction (3) Acute pancreatitis Current visit: Yes Status: Acute Category: Medical Code(s): K85.90 - Acute pancreatitis without necrosis or infection, unspecified - Assessment and plan all Dx Assessment and Plan for all problems:: Saw patient, agree with above note.
[2018-07-18 09:03] LABS: Albumin Level 2.6 gm/dL (3.4-5.0); Albumin/Globulin Ratio 0.8 (1.1-1.8); Anion Gap 10.9 mEq/L (5-15); Calcium 8.2 mg/dL (8.5-10.1); Globulin 3.2 gm/dl (1.3-3.2); Potassium 3.9 mmoL/L (3.5-5.1); Total Protein,Serum 5.8 gm/dL (6.4-8.2)
--- NOTE | 2018-07-18 12:31 | Progress Note ---
[facility] Anesthesia Checklist - Patient Identification Patient Identification: Arm Band, Verbal (Name & ) - Structural Data Admitted From: Home Planned Operative Procedure/s: laparoscopic cholecystectomy, IOC Consent for Planned Operative Procedure(s) Verified: Yes Verified Documents: Surgical Consent, History and Physical - NPO Status Verified Time NPO: 00:00 - Chart Verification Results Verified: CBC, BMP - Additional verifications Anesthesia Reactions: No - Airway Assessment C-Spine Mobility Assessed: Yes TMJ Mobility Assessed: Yes Dentition: Good Dentition (missing) - Neurological Assessment Level of Consciousness: Awake Hx Seizures: No Numbness or tingling in extremities: No - Anesthesia Plan Anesthesia Risk discussed: Yes Anesthesia Plan: Verified ASA Class: II Anesthesia Type: General [facility] History I have reviewed the patient's past medical history: Yes Medical History: Reports:: Hypertension, 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) Have you ever received a pneumonia vaccine?: Yes Have you received a flu vaccine this season?: Yes Other Medical History: Reports: Other (constipation) Laterality Cases: Left: Arthroscopy Shoulder (RCR) Other Surgeries: Yes: Tubal Ligation - *Social History Educational Level: Completed High School Alcohol Intake: never Occupational Status: retired Housing: house Household Members: family Travel in the last 8 weeks: None - Psychiatric History Expresses thoughts of harming self/others: None Suicide Plan Description: Clear Pschychiatric History:: Reports:: Bipolar Disorder *Family Hx:: Cancer, Coronary Artery Disease, Diabetes, Heart Attack, Hyperlipidemia, Hypertension
--- NOTE | 2018-07-18 14:10 | Operative Note ---
Date of procedure: 07/18/18 Pre-op Diagnosis:: Biliary pancreatitis Post-op Diagnosis:: Same Procedure performed:: Laparoscopic cholecystectomy with attempted intraoperative cholangiogram Surgeon:: Miguel oLpez MD Anesthesia: UMANG Estimated blood loss (mL): 25 Clinical Note:: Patient is a very pleasant 77-year-old white female. She experienced acute mid abdominal and right upper quadrant pain. She had presented to the emergency department where she was found to have radiographic and chemical evidence of appreciable pancreatitis. Given the laboratory profile and imaging studies this was felt to be biliary in origin. Her symptoms and laboratory values improved. Plan was made for cholecystectomy to alleviate the source of the pancreatitis and for attempted intraoperative cholangiogram to evaluate the biliary tree. Operative findings:: She had some pericholecystic fluid. She had a somewhat thickened gallbladder with multiple small stones. There was friability of the neck of the gallbladder and cystic duct. She had multiple small stones within the gallbladder lumen Operative note:: Consent was obtained. Patient was taken to the operating room. She was given preoperative intravenous antibiotics. In the operating room general anesthesia was induced after she was placed in a supine position. Abdomen was prepped and draped. Subumbilical skin incision was made and while performing abdominal wall lift Veress needle was inserted. CO2 pneumoperitoneum was achieved to 15 mmHg. 11 mm optical trocar was inserted at the umbilicus. Intraperitoneal contents were visualized. She was positioned in reverse Trendelenburg left side down. A couple of 5 mm trochars were inserted in the right upper abdomen. 11 mm trocar was inserted in the epigastrium. Gallbladder was grasped and retracted anteriorly and superiorly over the dome of the liver. Omental adhesions to the gallbladder were taken down using suction with limited use of ELIEZER ultrasonic harmonic gracy. The infundibulum/Cabral's pouch of the gallbladder was retracted anterior laterally. Dissection was carried out at the neck of the gallbladder carefully dissecting out the cystic structures. She appeared to have a rather foreshortened cystic duct. It was quite friable. A clip was placed proximal to the gallbladder. Small incision was made in the cystic duct. Cholangiocatheter introducer was inserted through a small incision in the right upper abdomen. A taut cholangiocatheter was manipulated through the cholangiocatheter and into the cystic duct. However, despite placing several hemoclips there was extravasation of saline flush. Please note that the cystic duct was rather friable. Attempt was made at intraoperative cholangiogram with this placement of the cholangiocatheter. There was extravasation contrast without filling of the biliary tree. At this time due to the potential for ductal injury cholangiogram attempt was aborted as she had of quite friable neck of the gallbladder and cystic duct. The cholangiocatheter was removed and multiple clips were placed on the apparent cystic duct. The cystic duct was then divided sharply. Cystic artery was clearly identified and coagulated with ELIEZER ultrasonic harmonic gracy and divided. Gallbladder was dissected free from the liver in a retrograde fashion using ELIEZER ultrasonic harmonic gracy. Gallbladder was placed within an Endo Catch retrieval device and removed from the peritoneal cavity via the umbilical trocar site. Gallbladder fossa and kristi hepatic space were irrigated and aspirated until clear. Trochars were removed as CO2 pneumoperitoneum was evacuated. Fascia at the umbilicus was closed with a 0 Vicryl [id number] suture. Local anesthetic was infiltrated. Skin incisions were closed with 4-0 Monocryl. Steri-Strips and dressings were applied. Condition: stable Disposition: PACU Specimens:: Gallbladder and contents Complications:: None immediately apparent
--- NOTE | 2018-07-18 14:17 | Progress Note ---
[facility] Anesthesia Record Part I Intake, IV Amount: 700 Estimated blood loss (mL): 20 Urine output (mL): 0 (NM) Blood Products used (#): none Blood Pressure: 157/82 SaO2: 96 Pulse Rate: 96 Respiratory Rate: 16 Temperature: 97.0 F Patient is:: Awake, Stable Stable to PACU at:: 14:10
--- NOTE | 2018-07-18 14:17 | Progress Note ---
[facility] Anesthesia Record Part II Discharge Time: 14:40 Destination: Medical Surgical Department PACU nurse assessment reviewed?: Yes Patient Condition:: Good Anesthesia Complications:: None
--- NOTE | 2018-07-19 06:34 | Progress Note ---
Subjective Narrative: Patient resting. Exam Vital signs and Labs for Last 24 Hours: Temp Pulse Resp BP Pulse Ox 98.0 F 110 H 17 122/66 93 L 07/19/18 04:00 07/19/18 04:00 07/19/18 04:00 07/19/18 04:00 07/19/18 04:00 Laboratory Results - last 24 hr 07/18/18 08:40: Sodium 143, Potassium 3.9, Chloride 109 H, Carbon Dioxide 27, Anion Gap 10.9, BUN 4 L, Creatinine 0.58 D, Estimated Creat Clear 42, Estimated GFR 101, Est GFR ( Amer) 122 D, Glucose 115 H, Calcium 8.2 L, Total Bilirubin 1.0, AST 43 H D, ALT 112 H D, Alkaline Phosphatase 97, Total Protein 5.8 L, Albumin 2.6 L, Globulin 3.2, Albumin/Globulin Ratio 0.8 L, Amylase 48, Lipase 126 I & O for Last 24 hours: Intake & Output 07/16/18 07/17/18 07/18/18 07/19/18 11:59 11:59 11:59 11:59 Intake Total 1376 / 1376 3915 / 3915 1320 / 1320 1365 / 1365 Output Total 0 / 0 Balance 1376 / 1376 3915 / 3915 1320 / 1320 1365 / 1365 Weight 123 lb 5 oz 123 lb 5.014 oz - Constitutional no acute distress Progress Note: A&P (1) Abdominal pain Status: Acute Current Visit: Yes (2) Acute cholecystitis due to biliary calculus Status: Acute Current Visit: Yes (3) Acute pancreatitis Status: Acute Current Visit: Yes Assessment and Plan for All Diagnoses:: Patient underwent lab cholecystectomy yesterday. Cholangiogram was unable to be done safely. Plan for MRCP today to evaluate biliary tree.
[2018-07-19 07:47] LABS: Basophils % 0.2 % (0.1-2.0); Eosinophils # 0.1 K/mm3 (0.0-0.4); Eosinophils % 0.6 % (0.1-12.0); Hematocrit 36.2 % (37.0-47.0); Hemoglobin 11.9 g/dL (12.2-16.2); Lymphocytes # 1.6 K/mm3 (0.7-4.5); Lymphocytes % 16.4 % (10-50); Mean Corpuscular HGB Conc 32.8 g/dL (31.8-35.4); Mean Corpuscular Hemoglobin 32.1 pg (27.0-31.2); Mean Corpuscular Volume 97.8 fl (81-99); Mean Platelet Volume 8.6 fl (7.4-10.4); Monocytes # 0.7 K/mm3 (0.1-1.0); Monocytes % 6.8 % (1.7-9.3); Neutrophils # 7.3 K/mm3 (1.8-7.8); Neutrophils % 76.1 % (37.0-80.0); Platelet Count 157 K/mm3 (142-424); Red Blood Count 3.71 M/mm3 (4.20-5.40); Red Cell Distribution Width 13.1 % (11.5-17.5); White Blood Count 9.5 K/mm3 (4.8-10.8)
--- NOTE | 2018-07-19 07:56 | Progress Note ---
Internal Medicine - PN: Subj *Date: 07/19/18 *Time: 07:56 Exam Vital signs and Labs for Last 24 Hours: Temp Pulse Resp BP Pulse Ox 98.0 F 110 H 17 122/66 93 L 07/19/18 04:00 07/19/18 04:00 07/19/18 04:00 07/19/18 04:00 07/19/18 04:00 Laboratory Results - last 24 hr 07/18/18 08:40: Sodium 143, Potassium 3.9, Chloride 109 H, Carbon Dioxide 27, Anion Gap 10.9, BUN 4 L, Creatinine 0.58 D, Estimated Creat Clear 42, Estimated GFR 101, Est GFR ( Amer) 122 D, Glucose 115 H, Calcium 8.2 L, Total Bilirubin 1.0, AST 43 H D, ALT 112 H D, Alkaline Phosphatase 97, Total Protein 5.8 L, Albumin 2.6 L, Globulin 3.2, Albumin/Globulin Ratio 0.8 L, Amylase 48, Lipase 126 07/19/18 07:30: WBC 9.5, RBC 3.71 L, Hgb 11.9 L, Hct 36.2 L, MCV 97.8, MCH 32.1 H, MCHC 32.8, RDW 13.1, Plt Count 157, MPV 8.6, Neut % (Auto) 76.1, Lymph % (Aut o) 16.4, [place] % (Auto) 6.8, Eos % (Auto) 0.6, Baso % (Auto) 0.2, Neut # (Auto) 7.3, Lymph # (Auto) 1.6, [place] # (Auto) 0.7, Eos # (Auto) 0.1, Baso # (Auto) 0.0 I & O for Last 24 hours: Intake & Output 07/16/18 07/17/18 07/18/18 07/19/18 23:59 23:59 23:59 23:59 Intake Total 2854 / 2854 2916 / 2916 1465 / 1465 907 / 907 Output Total 0 / 0 Balance 2854 / 2854 2916 / 2916 1465 / 1465 907 / 907 Weight 55.934 kg 55.934 kg Assessment and Plan (1) Abdominal pain Current visit: Yes Status: Acute Category: Medical Code(s): R10.9 - Unspecified abdominal pain (2) Acute cholecystitis due to biliary calculus Current visit: Yes Status: Acute Category: Medical Code(s): K80.00 - Calculus of gallbladder with acute cholecystitis without obstruction (3) Acute pancreatitis Current visit: Yes Status: Acute Category: Medical Code(s): K85.90 - Acute pancreatitis without necrosis or infection, unspecified The patient's infection will respond to the chosen ABx?: Yes Is the patient receiving the right drug, dose, and route?: Yes Could a more targeted ABx be ordered?: No
[2018-07-19 08:06] LABS: Albumin Level 2.4 gm/dL (3.4-5.0); Albumin/Globulin Ratio 0.7 (1.1-1.8); Anion Gap 11.4 mEq/L (5-15); Bilirubin,Total 0.8 mg/dL (0.2-1.0); Calcium 7.9 mg/dL (8.5-10.1); Globulin 3.4 gm/dl (1.3-3.2); Potassium 3.4 mmoL/L (3.5-5.1); Total Protein,Serum 5.8 gm/dL (6.4-8.2)
--- NOTE | 2018-07-19 08:20 | Progress Note ---
<Yasmin Hawkins - Last Filed: 07/19/18 08:17> Internal Medicine - PN: Subj *Date: 07/19/18 *Time: 08:17 Interval history: Patient states she is still feeling poorly today. She had a lot of abdominal pain throughout the night. She states she was unable to rest. She is NPO for an MRCP today. She has had some drainage on her surgical dressings. Exam Vital signs and Labs for Last 24 Hours: Temp Pulse Resp BP Pulse Ox 98.0 F 110 H 17 122/66 93 L 07/19/18 04:00 07/19/18 04:00 07/19/18 04:00 07/19/18 04:00 07/19/18 04:00 Laboratory Results - last 24 hr 07/18/18 08:40: Sodium 143, Potassium 3.9, Chloride 109 H, Carbon Dioxide 27, Anion Gap 10.9, BUN 4 L, Creatinine 0.58 D, Estimated Creat Clear 42, Estimated GFR 101, Est GFR ( Amer) 122 D, Glucose 115 H, Calcium 8.2 L, Total Bilirubin 1.0, AST 43 H D, ALT 112 H D, Alkaline Phosphatase 97, Total Protein 5.8 L, Albumin 2.6 L, Globulin 3.2, Albumin/Globulin Ratio 0.8 L, Amylase 48, Lipase 126 07/19/18 07:30: WBC 9.5, RBC 3.71 L, Hgb 11.9 L, Hct 36.2 L, MCV 97.8, MCH 32.1 H, MCHC 32.8, RDW 13.1, Plt Count 157, MPV 8.6, Neut % (Auto) 76.1, Lymph % (Auto) 16.4, [place] % (Auto) 6.8, Eos % (Auto) 0.6, Baso % (Auto) 0.2, Neut # (Auto) 7.3, Lymph # (Auto) 1.6, [place] # (Auto) 0.7, Eos # (Auto) 0.1, Baso # (Auto) 0.0 07/19/18 07:30: Sodium 142, Potassium 3.4 L, Chloride 109 H, Carbon Dioxide 25, Anion Gap 11.4, BUN 6 L D, Creatinine 0.62, Estimated Creat Clear 42, Estimated GFR 93, Est GFR ( Amer) 113, Glucose 136 H, Calcium 7.9 L, Total Bilirubin 0.8, AST 29 D, ALT 83 H D, Alkaline Phosphatase 89, Total Protein 5.8 L, Albumin 2.4 L, Globulin 3.4 H, Albumin/Globulin Ratio 0.7 L, Amylase 28 D, Lipase 77 I & O for Last 24 hours: Intake & Output 07/16/18 07/17/18 07/18/18 07/19/18 11:59 11:59 11:59 11:59 Intake Total 1376 / 1376 3915 / 3915 1320 / 1320 2172 / 2172 Output Total 0 / 0 Balance 1376 / 1376 3915 / 3915 1320 / 1320 2172 / 2172 Weight 123 lb 5 oz 123 lb 5.014 oz - Constitutional no acute distress - *Routine Respiratory Exam Present: CTA bilaterally - *Routine Cardiovascular Exam Present: RRR - *Routine Abdominal Exam Present: soft, normoactive bowel sounds, tenderness (diffuse and worse around surgical sites) - *Routine Extremities Exam Absent: cyanosis, clubbing, edema Assessment and Plan (1) Abdominal pain Current visit: Yes Status: Acute Category: Medical Code(s): R10.9 - Unspecified abdominal pain (2) Acute cholecystitis due to biliary calculus Current visit: Yes Status: Acute Category: Medical Code(s): K80.00 - Calculus of gallbladder with acute cholecystitis without obstruction (3) Acute pancreatitis Current visit: Yes Status: Acute Category: Medical Code(s): K85.90 - Acute pancreatitis without necrosis or infection, unspecified (4) Status post laparoscopic cholecystectomy Current visit: Yes Status: Acute Category: Surgical Code(s): Z90.49 - Acquired absence of other specified parts of digestive tract - Assessment and plan all Dx Assessment and Plan for all problems:: Surgery has seen patient today and plans for an MRCP. <Justin Ferrer - Last Filed: 07/19/18 08:27> Exam Vital signs and Labs for Last 24 Hours: Temp Pulse Resp BP Pulse Ox 98.8 F 90 18 151/77 H 94 L 07/19/18 08:00 07/19/18 08:00 07/19/18 08:00 07/19/18 08:00 07/19/18 08:00 Laboratory Results - last 24 hr 07/18/18 08:40: Sodium 143, Potassium 3.9, Chloride 109 H, Carbon Dioxide 27, Anion Gap 10.9, BUN 4 L, Creatinine 0.58 D, Estimated Creat Clear 42, Estimated GFR 101, Est GFR ( Amer) 122 D, Glucose 115 H, Calcium 8.2 L, Total Bilirubin 1.0, AST 43 H D, ALT 112 H D, Alkaline Phosphatase 97, Total Protein 5.8 L, Albumin 2.6 L, Globulin 3.2, Albumin/Globulin Ratio 0.8 L, Amylase 48, Lipase 126 07/19/18 07:30: WBC 9.5, RBC 3.71 L, Hgb 11.9 L, Hct 36.2 L, MCV 97.8, MCH 32.1 H, MCHC 32.8, RDW 13.1, Plt Count 157, MPV 8.6, Neut % (Auto) 76.1, Lymph % (Auto) 16.4, [place] % (Auto) 6.8, Eos % (Auto) 0.6, Baso % (Auto) 0.2, Neut # (Auto) 7.3, Lymph # (Auto) 1.6, [place] # (Auto) 0.7, Eos # (Auto) 0.1, Baso # (Auto) 0.0 07/19/18 07:30: Sodium 142, Potassium 3.4 L, Chloride 109 H, Carbon Dioxide 25, Anion Gap 11.4, BUN 6 L D, Creatinine 0.62, Estimated Creat Clear 42, Estimated GFR 93, Est GFR ( Amer) 113, Glucose 136 H, Calcium 7.9 L, Total Bilirubin 0.8, AST 29 D, ALT 83 H D, Alkaline Phosphatase 89, Total Protein 5.8 L, Albumin 2.4 L, Globulin 3.4 H, Albumin/Globulin Ratio 0.7 L, Amylase 28 D, Lipase 77 I & O for Last 24 hours: Intake & Output 07/16/18 07/17/18 07/18/18 07/19/18 11:59 11:59 11:59 11:59 Intake Total 1376 / 1376 3915 / 3915 1320 / 1320 217 / 2171 Output Total 0 / 0 Balance 1376 / 1376 3915 / 3915 1320 / 1320 2171 / 2171 Weight 123 lb 5 oz 123 lb 5.014 oz Assessment and Plan (1) Abdominal pain Current visit: Yes Status: Acute Category: Medical Code(s): R10.9 - Unspecified abdominal pain (2) Acute cholecystitis due to biliary calculus Current visit: Yes Status: Acute Category: Medical Code(s): K80.00 - Calculus of gallbladder with acute cholecystitis without obstruction (3) Acute pancreatitis Current visit: Yes Status: Acute Category: Medical Code(s): K85.90 - Acute pancreatitis without necrosis or infection, unspecified (4) Status post laparoscopic cholecystectomy Current visit: Yes Status: Acute Category: Surgical Code(s): Z90.49 - Acquired absence of other specified parts of digestive tract - Assessment and plan all Dx Assessment and Plan for all problems:: Saw patient, agree with above note.
--- NOTE | 2018-07-20 06:27 | Progress Note ---
Subjective Patient reports: no new complaints, vomiting (still with intermittent emesis) Exam Vital signs and Labs for Last 24 Hours: Temp Pulse Resp BP Pulse Ox 97.2 F L 66 15 167/72 H 95 07/20/18 04:00 07/20/18 04:00 07/20/18 04:00 07/20/18 04:00 07/20/18 04:00 Laboratory Results - last 24 hr 07/19/18 07:30: WBC 9.5, RBC 3.71 L, Hgb 11.9 L, Hct 36.2 L, MCV 97.8, MCH 32.1 H, MCHC 32.8, RDW 13.1, Plt Count 157, MPV 8.6, Neut % (Auto) 76.1, Lymph % (Auto) 16.4, [place] % (Auto) 6.8, Eos % (Auto) 0.6, Baso % (Auto) 0.2, Neut # (Auto) 7.3, Lymph # (Auto) 1.6, [place] # (Auto) 0.7, Eos # (Auto) 0.1, Baso # (Auto) 0.0 07/19/18 07:30: Sodium 142, Potassium 3.4 L, Chloride 109 H, Carbon Dioxide 25, Anion Gap 11.4, BUN 6 L D, Creatinine 0.62, Estimated Creat Clear 42, Estimated GFR 93, Est GFR ( Amer) 113, Glucose 136 H, Calcium 7.9 L, Total Bilirubin 0.8, AST 29 D, ALT 83 H D, Alkaline Phosphatase 89, Total Protein 5.8 L, Albumin 2.4 L, Globulin 3.4 H, Albumin/Globulin Ratio 0.7 L, Amylase 28 D, Lipase 77 I & O for Last 24 hours: Intake & Output 07/17/18 07/18/18 07/19/18 07/20/18 11:59 11:59 11:59 11:59 Intake Total 3915 / 3915 1320 / 1320 2372 / 2372 2247 / 2247 Output Total 0 / 0 600 / 600 Balance 3915 / 3915 1320 / 1320 2372 / 2372 1647 / 1647 Weight 123 lb 5.014 oz 128 lb 1 oz - Constitutional no acute distress - *Routine Respiratory Exam Absent: respiratory distress - *Routine Abdominal Exam Present: soft Progress Note: A&P (1) Abdominal pain Status: Acute Current Visit: Yes (2) Acute cholecystitis due to biliary calculus Status: Acute Assessment and plan: Stable status post laparoscopic cholecystectomy. MRCP revealed no fluid collection/leak/retained stone. She continues to slowly improve; however, she does continue to have some intermittent emesis that is apparently somewhat chronic per nursing report. Likely discharge home soon. Once the patient is able to tolerate (at least a liquid) diet she should be stable for discharge with close outpatient follow-up. Current Visit: Yes (3) Acute pancreatitis Status: Acute Current Visit: Yes (4) Status post laparoscopic cholecystectomy Status: Acute Current Visit: Yes
--- NOTE | 2018-07-20 08:23 | Progress Note ---
Internal Medicine - PN: Subj *Date: 07/20/18 *Time: 08:22 Interval history: Patient vomited while eating breakfast this morning, no other new complaints. Exam Vital signs and Labs for Last 24 Hours: Temp Pulse Resp BP Pulse Ox 97.2 F L 66 15 167/72 H 95 07/20/18 04:00 07/20/18 04:00 07/20/18 04:00 07/20/18 04:00 07/20/18 04:00 I & O for Last 24 hours: Intake & Output 07/17/18 07/18/18 07/19/18 07/20/18 11:59 11:59 11:59 11:59 Intake Total 3915 / 3915 1320 / 1320 2372 / 2372 2247 / 2247 Output Total 0 / 0 1400 / 1400 Balance 3915 / 3915 1320 / 1320 2372 / 2372 847 / 847 Weight 123 lb 5.014 oz 128 lb 1 oz - Constitutional no acute distress - *Routine HEENT Exam Head: Present: normocephalic Eye: Present: EOMI, PERRL ENT: Present: mucous membranes moist - *Routine Neck Exam Present: supple. Absent: lymphadenopathy - *Routine Respiratory Exam Present: CTA bilaterally - *Routine Cardiovascular Exam Present: RRR - *Routine Abdominal Exam Present: soft, normoactive bowel sounds, tenderness (around incision sites) - *Routine Extremities Exam Absent: cyanosis, clubbing, edema - *Routine Skin Exam Present: warm. Absent: rash - *Routine Neurological Exam Present: alert, oriented X3 Assessment and Plan (1) Abdominal pain Current visit: Yes Status: Acute Category: Medical Code(s): R10.9 - Unspecified abdominal pain (2) Acute cholecystitis due to biliary calculus Current visit: Yes Status: Acute Category: Medical Code(s): K80.00 - Calculus of gallbladder with acute cholecystitis without obstruction (3) Acute pancreatitis Current visit: Yes Status: Acute Category: Medical Code(s): K85.90 - Acute pancreatitis without necrosis or infection, unspecified (4) Status post laparoscopic cholecystectomy Current visit: Yes Status: Acute Category: Surgical Code(s): Z90.49 - Acquired absence of other specified parts of digestive tract - Assessment and plan all Dx Assessment and Plan for all problems:: Continue routine post operative care.
[2018-07-21 07:16] LABS: Basophils % 0.4 % (0.1-2.0); Eosinophils # 0.1 K/mm3 (0.0-0.4); Eosinophils % 0.7 % (0.1-12.0); Hematocrit 37.3 % (37.0-47.0); Hemoglobin 12.4 g/dL (12.2-16.2); Lymphocytes # 1.5 K/mm3 (0.7-4.5); Lymphocytes % 16.2 % (10-50); Mean Corpuscular HGB Conc 33.1 g/dL (31.8-35.4); Mean Corpuscular Hemoglobin 31.7 pg (27.0-31.2); Mean Corpuscular Volume 95.7 fl (81-99); Mean Platelet Volume 7.8 fl (7.4-10.4); Monocytes # 0.7 K/mm3 (0.1-1.0); Monocytes % 7.6 % (1.7-9.3); Neutrophils # 7.1 K/mm3 (1.8-7.8); Neutrophils % 75.1 % (37.0-80.0); Platelet Count 183 K/mm3 (142-424); Red Cell Distribution Width 13.1 % (11.5-17.5); White Blood Count 9.4 K/mm3 (4.8-10.8)
[2018-07-21 07:26] LABS: Anion Gap 14.5 mEq/L (5-15); Potassium 3.5 mmoL/L (3.5-5.1)
[2018-07-21 07:51] LABS: Calcium 8.6 mg/dL (8.5-10.1)
--- NOTE | 2018-07-21 07:57 | Progress Note ---
Subjective Narrative: Patient had some vomiting yesterday and has an upper GI ordered for this morning. Exam Vital signs and Labs for Last 24 Hours: Temp Pulse Resp BP Pulse Ox 98.8 F 91 H 15 127/64 94 L 07/21/18 04:00 07/21/18 04:00 07/21/18 04:00 07/21/18 04:00 07/21/18 04:00 Laboratory Results - last 24 hr 07/21/18 06:57: WBC 9.4, RBC 3.90 L, Hgb 12.4, Hct 37.3, MCV 95.7, MCH 31.7 H, MCHC 33.1, RDW 13.1, Plt Count 183, MPV 7.8, Neut % (Auto) 75.1, Lymph % (Auto) 16.2, [place] % (Auto) 7.6, Eos % (Auto) 0.7, Baso % (Auto) 0.4, Neut # (Auto) 7.1, Lymph # (Auto) 1.5, [place] # (Auto) 0.7, Eos # (Auto) 0.1, Baso # (Auto) 0.0 07/21/18 06:57: Sodium 141, Potassium 3.5, Chloride 105, Carbon Dioxide 25, Anion Gap 14.5, BUN 9 D, Creatinine 0.68, Estimated Creat Clear 43, Estimated GFR 84, Est GFR ( Amer) 102, Glucose 111 H, Calcium 8.6 I & O for Last 24 hours: Intake & Output 07/18/18 07/19/18 07/20/18 07/21/18 11:59 11:59 11:59 11:59 Intake Total 1320 / 1320 2522 / 2522 2687 / 2687 580 / 580 Output Total 0 / 0 1400 / 1400 Balance 1320 / 1320 2522 / 2522 1287 / 1287 580 / 580 Weight 123 lb 5.014 oz 128 lb 1 oz - Constitutional no acute distress - *Routine Abdominal Exam Present: soft. Absent: tenderness Progress Note: A&P (1) Abdominal pain Status: Acute Current Visit: Yes (2) Acute cholecystitis due to biliary calculus Status: Acute Current Visit: Yes (3) Acute pancreatitis Status: Acute Current Visit: Yes (4) Status post laparoscopic cholecystectomy Status: Acute Current Visit: Yes Assessment and Plan for All Diagnoses:: Upper GI today.
--- NOTE | 2018-07-21 08:29 | Progress Note ---
<Yasmin Hawkins - Last Filed: 07/21/18 08:27> Internal Medicine - PN: Subj *Date: 07/21/18 *Time: 08:27 Interval history: Patient states she is feeling well this morning. She has minimal abdominal pain. She slept well. She had some difficulty with swallowing and has an upper GI ordered for this morning. Exam Vital signs and Labs for Last 24 Hours: Temp Pulse Resp BP Pulse Ox 99.0 F 114 H 18 120/74 92 L 07/21/18 08:00 07/21/18 08:00 07/21/18 08:00 07/21/18 08:00 07/21/18 08:00 Laboratory Results - last 24 hr 07/21/18 06:57: WBC 9.4, RBC 3.90 L, Hgb 12.4, Hct 37.3, MCV 95.7, MCH 31.7 H, MCHC 33.1, RDW 13.1, Plt Count 183, MPV 7.8, Neut % (Auto) 75.1, Lymph % (Auto) 16.2, [place] % (Auto) 7.6, Eos % (Auto) 0.7, Baso % (Auto) 0.4, Neut # (Auto) 7.1, Lymph # (Auto) 1.5, [place] # (Auto) 0.7, Eos # (Auto) 0.1, Baso # (Auto) 0.0 07/21/18 06:57: Sodium 141, Potassium 3.5, Chloride 105, Carbon Dioxide 25, Anion Gap 14.5, BUN 9 D, Creatinine 0.68, Estimated Creat Clear 43, Estimated GFR 84, Est GFR ( Amer) 102, Glucose 111 H, Calcium 8.6 I & O for Last 24 hours: Intake & Output 07/18/18 07/19/18 07/20/18 07/21/18 11:59 11:59 11:59 11:59 Intake Total 1320 / 1320 2522 / 2522 2687 / 2687 580 / 580 Output Total 0 / 0 1400 / 1400 Balance 1320 / 1320 2522 / 2522 1287 / 1287 580 / 580 Weight 123 lb 5.014 oz 128 lb 1 oz - Constitutional no acute distress - *Routine Respiratory Exam Present: CTA bilaterally - *Routine Cardiovascular Exam Present: RRR - *Routine Abdominal Exam Present: soft, normoactive bowel sounds, tenderness (around incision sites) - *Routine Extremities Exam Absent: cyanosis, clubbing, edema Assessment and Plan (1) Abdominal pain Current visit: Yes Status: Acute Category: Medical Code(s): R10.9 - Unspecified abdominal pain (2) Acute cholecystitis due to biliary calculus Current visit: Yes Status: Acute Category: Medical Code(s): K80.00 - Calculus of gallbladder with acute cholecystitis without obstruction (3) Acute pancreatitis Current visit: Yes Status: Acute Category: Medical Code(s): K85.90 - Acute pancreatitis without necrosis or infection, unspecified (4) Status post laparoscopic cholecystectomy Current visit: Yes Status: Acute Category: Surgical Code(s): Z90.49 - Acquired absence of other specified parts of digestive tract - Assessment and plan all Dx Assessment and Plan for all problems:: NPO for upper GI today. <Justin Ferrer - Last Filed: 07/21/18 09:01> Exam Vital signs and Labs for Last 24 Hours: Temp Pulse Resp BP Pulse Ox 99.0 F 114 H 18 120/74 92 L 07/21/18 08:00 07/21/18 08:00 07/21/18 08:00 07/21/18 08:00 07/21/18 08:00 Laboratory Results - last 24 hr 07/21/18 06:57: WBC 9.4, RBC 3.90 L, Hgb 12.4, Hct 37.3, MCV 95.7, MCH 31.7 H, MCHC 33.1, RDW 13.1, Plt Count 183, MPV 7.8, Neut % (Auto) 75.1, Lymph % (Auto) 16.2, [place] % (Auto) 7.6, Eos % (Auto) 0.7, Baso % (Auto) 0.4, Neut # (Auto) 7.1, Lymph # (Auto) 1.5, [place] # (Auto) 0.7, Eos # (Auto) 0.1, Baso # (Auto) 0.0 07/21/18 06:57: Sodium 141, Potassium 3.5, Chloride 105, Carbon Dioxide 25, Anion Gap 14.5, BUN 9 D, Creatinine 0.68, Estimated Creat Clear 43, Estimated GFR 84, Est GFR ( Amer) 102, Glucose 111 H, Calcium 8.6 I & O for Last 24 hours: Intake & Output 07/18/18 07/19/18 07/20/18 07/21/18 11:59 11:59 11:59 11:59 Intake Total 1320 / 1320 2522 / 2522 2687 / 2687 580 / 580 Output Total 0 / 0 1400 / 1400 Balance 1320 / 1320 2522 / 2522 1287 / 1287 580 / 580 Weight 123 lb 5.014 oz 128 lb 1 oz Assessment and Plan (1) Abdominal pain Current visit: Yes Status: Acute Category: Medical Code(s): R10.9 - Unspecified abdominal pain (2) Acute cholecystitis due to biliary calculus Current visit: Yes Status: Acute Category: Medical Code(s): K80.00 - Calculus of gallbladder with acute cholecystitis without obstruction (3) Acute pancreatitis Current visit: Yes Status: Acute Category: Medical Code(s): K85.90 - Acute pancreatitis without necrosis or infection, unspecified (4) Status post laparoscopic cholecystectomy Current visit: Yes Status: Acute Category: Surgical Code(s): Z90.49 - Acquired absence of other specified parts of digestive tract - Assessment and plan all Dx Assessment and Plan for all problems:: Saw patient, agree with above note.
--- NOTE | 2018-07-21 14:17 | Progress Note ---
[facility] Anesthesia Checklist - Patient Identification Patient Identification: Arm Band, Verbal (Name & ) - Structural Data Admitted From: Inpatient Planned Operative Procedure/s: EGD Consent for Planned Operative Procedure(s) Verified: Yes Verified Documents: Surgical Consent, History and Physical - NPO Status Verified Time NPO: 00:00 - Additional verifications Anesthesia Reactions: No - Airway Assessment C-Spine Mobility Assessed: Yes TMJ Mobility Assessed: Yes Dentition: Poor Dentition - Neurological Assessment Level of Consciousness: Awake Hx Seizures: No Numbness or tingling in extremities: No - Anesthesia Plan Anesthesia Risk discussed: Yes Anesthesia Plan: Verified ASA Class: II (Emergent) Anesthesia Type: MAC [facility] History I have reviewed the patient's past medical history: Yes Medical History: Reports:: Dementia, Gastroesophageal Reflux Disease(GERD), Hypertension, 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) Denies:: Seizures Have you ever received a pneumonia vaccine?: Yes Have you received a flu vaccine this season?: Yes Other Medical History: Reports: Other (constipation, dysphagia) Laterality Cases: Left: Arthroscopy Shoulder (RCR) Other Surgeries: Yes: Cholecystectomy, Tubal Ligation, Other (Right shoulder ORIF) - *Social History Educational Level: Completed High School Alcohol Intake: never Occupational Status: retired Housing: house Household Members: family Travel in the last 8 weeks: None - Psychiatric History Expresses thoughts of harming self/others: None Suicide Plan Description: Clear Pschychiatric History:: Reports:: Bipolar Disorder *Family Hx:: Cancer, Coronary Artery Disease, Diabetes, Heart Attack, Hyperlipidemia, Hypertension
--- NOTE | 2018-07-21 14:37 | Procedure Note ---
[facility] Procedure Note Procedure Note:: Upper Endoscopy Procedure Report: Esophagogastroduodenoscopy with cold biopsies and TTS balloon dilation Endoscopost: Dorian Cortes II, MD Referring Physician: Miguel Lopez MD Date of Procedure: July 21, 2018 Equipment: Olympus GIF 180 standard upper endoscope Sedation: MAC sedation Indications: Mrs. Wheatley is a 77-year-old female who recently had gallstones/gallbladder disease with choledocholithiasis. Her bilirubin and liver chemistries were mildly elevated but returned to normal. She did have cholecystectomy on July 18, 2018. The patient has had continued difficulties with swallowing. She has lost nearly 50 pounds. She has vomiting and regurgitation. Her symptoms have been worsened over the last 6 months. The patient did have a barium swallow today that showed marked retention of food content with a noncontractile dilated esophagus and bird beaking suggestive of achalasia or pseudo-achalasia. EGD was recommended. Procedure: Prior to the procedure, a history and physical exam was performed, and patient's medications and allergies were reviewed. The risks, benefits and alternatives of the sedation and procedure were discussed with the patient. All questions were answered and informed consent was obtained. The patient was brought to the procedure room. Patient identification and proposed procedure were verified by the physician and the nurse. The patient was placed in a left lateral decubitus position and the scope was passed under direct vision. Throughout the procedure, the patient's blood pressure, pulse, and oxygen saturations were monitored continuously. The upper GI endoscopy was accomplished without difficulty. The patient tolerated the procedure well. Findings: The scope was passed directly into the upper esophagus and advanced to the third portion of the duodenum. The post bulbar duodenum and duodenal bulb were normal with normal mucosa and conniventes. The scope was withdrawn through a normal duodenal bulb and pylorus into the stomach. There was bile reflux with no reactive gastropathy. The remainder of the antrum, body and fundus of the stomach were grossly normal. Upon retroflexion there was no hiatal hernia. There was also no evidence of a fundic mass or neoplasm at the GE junction or fundus of the stomach. In other words there was no evidence of pseudo- achalasia. 2 biopsies were taken in the antrum and along the lesser curvature for histology to rule out gastritis and/or H pylori. The scope was then withdrawn into the esophagus. Initially, the esophagus was very difficult to traverse. There was a dilated esophagus with strong tertiary contractions and marked amount of barium and some liquid/solid content within the esophagus. There was failure to relax of the lower esophageal sphincter. The findings were most consistent with achalasia. The distal esophagus was dilated to 20 mm throughout the esophagus. Impression: 1. Probable Achalasia 2. Bile reflux with mild reactive gastropathy Plan: I will discussed the findings with the patient and family. Treatment for achalasia includes Botox injection, pneumatic dilation and Heller myotomy. More recently, POEM (per oral endoscopic myotomy) is being performed at tertiary centers. I do feel that we should proceed with therapeutic options especially since she does have endoscopic and fluoroscopic evidence of achalasia (manometry not yet performed).
--- NOTE | 2018-07-21 15:34 | Progress Note ---
Subjective Narrative: Patient's upper GI series this morning revealed findings radiographically consistent with achalasia with distal esophageal stricture/obstruction. Gastroenterology was consulted and performed upper endoscopy which revealed findings of achalasia. She was dilated to 20 mmHg. Patient feels better at this point. Exam Vital signs and Labs for Last 24 Hours: Temp Pulse Resp BP Pulse Ox 97 F L 104 H 18 130/70 95 07/21/18 14:40 07/21/18 15:02 07/21/18 15:02 07/21/18 15:02 07/21/18 15:02 Laboratory Results - last 24 hr 07/21/18 06:57: WBC 9.4, RBC 3.90 L, Hgb 12.4, Hct 37.3, MCV 95.7, MCH 31.7 H, MCHC 33.1, RDW 13.1, Plt Count 183, MPV 7.8, Neut % (Auto) 75.1, Lymph % (Auto) 16.2, [place] % (Auto) 7.6, Eos % (Auto) 0.7, Baso % (Auto) 0.4, Neut # (Auto) 7.1, Lymph # (Auto) 1.5, [place] # (Auto) 0.7, Eos # (Auto) 0.1, Baso # (Auto) 0.0 07/21/18 06:57: Sodium 141, Potassium 3.5, Chloride 105, Carbon Dioxide 25, Anion Gap 14.5, BUN 9 D, Creatinine 0.68, Estimated Creat Clear 43, Estimated GFR 84, Est GFR ( Amer) 102, Glucose 111 H, Calcium 8.6 I & O for Last 24 hours: Intake & Output 07/19/18 07/20/18 07/21/18 07/22/18 11:59 11:59 11:59 11:59 Intake Total 2522 / 2522 2687 / 2687 680 / 680 Output Total 0 / 0 1400 / 1400 Balance 2522 / 2522 1287 / 1287 680 / 680 Weight 128 lb 1 oz Progress Note: A&P (1) Abdominal pain Status: Acute Current Visit: Yes (2) Acute cholecystitis due to biliary calculus Status: Acute Current Visit: Yes (3) Acute pancreatitis Status: Acute Current Visit: Yes (4) Status post laparoscopic cholecystectomy Status: Acute Current Visit: Yes Assessment and Plan for All Diagnoses:: Discussed the case with Dr. Cortes. He is planning repeat endoscopy on Tuesday with Botox injection.
--- NOTE | 2018-07-22 09:09 | Progress Note ---
Internal Medicine - PN: Subj *Date: 07/22/18 *Time: 09:07 Interval history: Patient feels much better today after EGD with dilatation yesterday. No problems eating. Exam Vital signs and Labs for Last 24 Hours: Temp Pulse Resp BP Pulse Ox 98.4 F 107 H 16 128/74 94 L 07/22/18 07:59 07/22/18 07:59 07/22/18 07:59 07/22/18 07:59 07/22/18 07:59 I & O for Last 24 hours: Intake & Output 07/19/18 07/20/18 07/21/18 07/22/18 11:59 11:59 11:59 11:59 Intake Total 2522 / 2522 2687 / 2687 780 / 780 580 / 580 Output Total 0 / 0 1400 / 1400 0 / 0 Balance 2522 / 2522 1287 / 1287 780 / 780 580 / 580 Weight 128 lb 1 oz - Constitutional no acute distress - *Routine HEENT Exam Head: Present: normocephalic Eye: Present: EOMI ENT: Present: mucous membranes moist - *Routine Neck Exam Present: supple. Absent: lymphadenopathy - *Routine Respiratory Exam Present: CTA bilaterally - *Routine Cardiovascular Exam Present: RRR - *Routine Abdominal Exam Present: soft, normoactive bowel sounds. Absent: tenderness - *Routine Extremities Exam Absent: cyanosis, clubbing, edema - *Routine Skin Exam Present: warm. Absent: rash - *Routine Neurological Exam Present: alert, oriented X3 Assessment and Plan (1) Abdominal pain Current visit: Yes Status: Acute Category: Medical Code(s): R10.9 - Unspecified abdominal pain (2) Acute cholecystitis due to biliary calculus Current visit: Yes Status: Acute Category: Medical Code(s): K80.00 - Calculus of gallbladder with acute cholecystitis without obstruction (3) Acute pancreatitis Current visit: Yes Status: Acute Category: Medical Code(s): K85.90 - Acute pancreatitis without necrosis or infection, unspecified (4) Status post laparoscopic cholecystectomy Current visit: Yes Status: Acute Category: Surgical Code(s): Z90.49 - Acquired absence of other specified parts of digestive tract (5) Achalasia of esophagus Current visit: Yes Status: Acute Category: Medical Code(s): K22.0 - Achalasia of cardia - Assessment and plan all Dx Assessment and Plan for all problems:: OK for discharge today, next EGD is actually being planned for07/28/[address] Cortes, f/u with Dr. Lopez in 10 days.
--- NOTE | 2018-07-23 16:07 | Discharge Summary ---
General - General Admission date:: 07/15/18 Discharge date: 07/22/18 HPI HPI: 77 year old female who states she has not seen a physician in the past [address] [facility] ER complaining of abdominal pain associated with nausea and vomiting. She has had these symptoms off and on for some time but that became much worse over the past few days. Emesis consisted of ingested food, she denies diarrhea but has had constipation for quite a long time. She has had subjective fever, no sick contacts or recent travel. She has had some weight loss. Hospital Course Hospital Course: Patient had an abdominal CT showing a pancreatitis, cholelithiasis, a thickened gallbladder, and possible mild liver inflammation. It also showed a hiatal hernia and probable cystitis. She had an ultrasound of her gallbladder that showed a cholecystitis. She was seen by Dr. Lopez for surgical consult and he felt she had biliary pancreatitis with secondary cholecystitis. He wanted to plan surgery in a few days once her pancreatitis had improved. She was continued on clear liquids. Her pancreatitis improved. Her diet was advanced to full liquids. Dr. Lopez performed a laparoscopic cholecystectomy. He attempted an intraoperative cholangiogram but there was no visualization of the common bile duct. She therefore was scheduled for an MRCP which showed no evidence of common bile duct stones. There was mild edema of the pancreas. The patient continued to vomit with food after the cholecystectomy, therefore an upper GI was ordered. The patient's upper GI revealed achalasia with distal esophageal stricture/obstruction. Gastroenterology was consulted and Dr. Cortes performed an upper endoscopy which revealed findings of achalasia. She was dilated to 20 mmHg. She felt better after this and was able to eat. She was stable to be discharged and Dr. Cortes will repeat endoscopy on Tuesday with Botox injection. She will keep the procedure appt with Dr. Cortes and will f/u with Dr. Lopez in 10 days. Objective Vital signs: Temp Pulse Resp BP Pulse Ox 98.4 F 107 H 16 128/74 94 L 07/22/18 07:59 07/22/18 07:59 07/22/18 07:59 07/22/18 07:59 07/22/18 07:59 Narrative: - Constitutional no acute distress - *Routine HEENT Exam Head: Present: normocephalic Eye: Present: EOMI ENT: Present: mucous membranes moist - *Routine Neck Exam Present: supple. Absent: lymphadenopathy - *Routine Respiratory Exam Present: CTA bilaterally - *Routine Cardiovascular Exam Present: RRR - *Routine Abdominal Exam Present: soft, normoactive bowel sounds, tenderness (minimal epigastric) - *Routine Extremities Exam Absent: cyanosis, clubbing, edema - *Routine Skin Exam Present: warm. Absent: rash - *Routine Neurological Exam Present: alert. Absent: sensory deficit, motor deficit DS: Diagnosis - Discharge Diagnosis (1) Abdominal pain Status: Acute (2) Acute cholecystitis due to biliary calculus Status: Acute (3) Acute pancreatitis Status: Acute (4) Status post laparoscopic cholecystectomy Status: Acute (5) Achalasia of esophagus Status: Acute Discharge Plan - Patient Discharge Instructions ACTIVITY: Continue current activity DIET: continue same diet Patient Instructions: Achalasia, [place] Diet, DI for Pancreatitis, DI for Cholecystectomy, DI for Surgical Site Infection, DI for Cholecystitis - Follow up Plan Follow up with: Miguel Lopez MD [Staff Physician] - 10 days Dorian Cortes MD [Staff Physician] - 07/28/18 (For repeat EGD) Disposition: Home, Self-Prison Medications: Home Medications Medication Instructions Recorded Confirmed Type No Known Home Medications 07/15/18 07/15/18 History Acetaminophen [Tylenol] 325 mg PO Q4HP PRN #30 capsule 07/22/18 Rx Prescriptions/Medication Reconciliation: New Acetaminophen [Tylenol] 325 mg PO Q4HP PRN #30 capsule PRN Reason: Mild To Moderate Pain No Action No Known Home Medications
== END 2018-07-22 11:26 | disposition home or self-care (01) | DRG 417 ==
LOC: UTC 12:06 → 2ND 15:19
PROVIDERS: ADMIT Family Medicine; ATTEND Family Medicine
CPT/HCPCS: 36415; 71020; 71046; 74177; 74181; 74220; 74300; 76376; 76705; 80048; 80053; 81001; 82150; 83615; 83690; 84484; 85025; 93005; 96365; 96375; 99284; C1726; J1956; J2405; Q9967

== ENCOUNTER 2018-10-17 09:26 | Inpatient (IN) ==
--- NOTE | 2018-10-17 09:36 | Emergency Department Note ---
ED Disposition Clinical Impression: Hypokalemia Acute pancreatitis Qualifiers: Pancreatitis type: unspecified pancreatitis type Acute pancreatitis complication: no infection or necrosis Qualified Code(s): K85.90 - Acute pancreatitis without necrosis or infection, unspecified Disposition: Admitted As Inpatient Condition on Discharge: Fair - Critical Care Critical Care Time: No Attestation: On , the high probability of a clinically significant, sudden or life threatening deterioration of the following system(s) required my full and direct attention, intervention and personal management. The time I documented below is in addition to time spent performing reported procedures but includes the following listed in this critical care notation. Medical Decision Making - Dyllan Inquiry Pt receiving controlled substance: Yes Dyllan was queried for this patient: No Reason not queried -: Emergent pt cond-no time Risks and benefits of using a controlled substance: were not discussed with pt by me Vital Signs: 10/17/18 09:34 10/17/18 10:05 10/17/18 10:30 Temperature 98.7 F 97.3 F L Temperature Source Oral Oral Pulse Rate [Right Brachial] 59 L 73 68 Respiratory Rate 16 26 H 26 H Blood Pressure [Right Arm] 147/56 H 155/85 H 174/70 H Blood Pressure Mean [Right Arm] 86 108 104 Blood Pressure Source [Right Arm] Automatic Cuff Automatic Cuff Automatic Cuff Blood Pressure Position [Right Arm] Sitting Sitting Sitting 02 Sat by Pulse Oximetry 98 100 98 Oxygen Delivery Method Room Air Room Air Room Air 10/17/18 11:56 Temperature Temperature Source Pulse Rate [Right Brachial] 60 Respiratory Rate Blood Pressure [Right Arm] 147/71 H Blood Pressure Mean [Right Arm] 96 Blood Pressure Source [Right Arm] Automatic Cuff Blood Pressure Position [Right Arm] Sitting 02 Sat by Pulse Oximetry 93 L Oxygen Delivery Method Room Air - Lab Data Lab Results 10/17/18 09:15: Triglycerides 66, Cholesterol 213 H, LDL Cholesterol 115, VLDL Cholesterol 13, HDL Cholesterol 85, Cholesterol/HDL Ratio 2.5 10/17/18 09:45: WBC 5.6, RBC 4.68, Hgb 15.0, Hct 44.2, MCV 94.6, MCH 32.0 H, MCHC 33.8, RDW 13.5, Plt Count 167, MPV 8.5, Neut % (Auto) 36.5 L, Lymph % (Auto ) 55.2 H, [place] % (Auto) 6.2, Eos % (Auto) 1.5, Baso % (Auto) 0.7, Neut # (Auto) 2.0, Lymph # (Auto) 3.1, [place] # (Auto) 0.4, Eos # (Auto) 0.1, Baso # (Auto) 0.0, Total Counted 100, Neutrophils % (Manual) 33 L, Lymphocytes % (Manual) 60 H, Monocytes % (Manual) 7, Platelet Estimate Normal, RBC Morphology Normal 10/17/18 09:45: Sodium 144, Potassium 2.7 L*, Chloride 108 H, Carbon Dioxide 22, Anion Gap 16.7 H, BUN 8, Creatinine 0.82, Estimated Creat Clear 41, Estimated GFR 67, Est GFR ( Amer) 82, Glucose 143 H, Calcium 8.9, Total Bilirubin 3.3 H, AST 938 H*, ALT 918 H*, Alkaline Phosphatase 196 H, Total Protein 7.0, Albumin 3.3 L, Globulin 3.7 H, Albumin/Globulin Ratio 0.9 L, Amylase 2984 H*, Lipase 11775 H 10/17/18 09:45: Lactate 3.2 H 10/17/18 09:45: Troponin I < 0.02 Result diagrams: 10/17/18 09:45 10/17/18 09:45 Orders (Tests/Meds): ED MEDICATIONS Generic Name Dose Route Start Last Admin Trade Name Freq PRN Reason Stop Dose Admin Sodium Chloride 1,000 mls @ 150 mls/hr 10/17/18 12:15 Sod Chlor 0.9% 1000ml Bag IV 11/16/18 12:14 .Q6H40M REN Sodium Chloride 10 ml 10/17/18 09:41 Saline Flush 10ml Syringe IV 11/16/18 09:40 NEEDED PRN Maintain IV Site Sodium Chloride 10 ml 10/17/18 10:54 10/17/18 10:54 Rad-Saline Flush 10ml Syringe IV 11/16/18 10:53 10 ml NEEDED PRN Administration Maintain IV Site Discontinued Medications Generic Name Dose Route Start Last Admin Trade Name Freq PRN Reason Stop Dose Admin Hydromorphone HCl 0.5 mg 10/17/18 10:21 10/17/18 10:34 Dilaudid 2mg/Ml Syringe IV 10/17/18 10:22 0.5 mg ONCE ONE Administration Sodium Chloride 1,000 mls @ 999 mls/hr 10/17/18 09:45 10/17/18 09:51 Sod Chlor 0.9% 1000ml Bag IV 10/17/18 10:45 999 mls/hr .Q1H1M REN Administration Potassium Chloride/Water 100 mls @ 50 mls/hr 10/17/18 10:45 10/17/18 11:19 Potassium Chloride 20meq/100ml Ivpb IV 10/17/18 12:44 50 mls/hr ONCE ONE Administration Ioversol 75 ml 10/17/18 10:52 10/17/18 10:54 Rad-Optiray 350 100ml Vial IV 10/17/18 10:53 75 ml ONCE ONE Administration Protocol Morphine Sulfate 4 mg 10/17/18 09:50 10/17/18 09:51 Morphine 4mg/Ml Syringe IV 10/17/18 09:51 4 mg ONCE ONE Administration Morphine Sulfate 4 mg 10/17/18 09:58 10/17/18 10:04 Morphine 4mg/Ml Syringe IV 10/17/18 09:59 4 mg ONCE ONE Administration Ondansetron HCl 4 mg 10/17/18 09:50 10/17/18 09:51 Zofran 4mg/2ml Vial IV 10/17/18 09:51 4 mg ONCE ONE Administration ORDERS Category Date Time Status Blood Culture Stat Micro 10/17/18 12:15 Received - CT Data CT Scan: Abdomen, Pelvis Time Received: 11:[address] Reviewed: Yes: I have viewed the radiologist's interpretation Findings Narrative: MPRESSION: 1. Overall no significant change in the findings compatible with acute pancreatitis with pancreatic edema and peripancreatic fluid. The peripancreatic fluid has slightly increased in volume. No abscess or necrosis. 2. No change in the postcholecystectomy changes with intra and extrahepatic ductal dilatation. 3. Persistent distended distal thoracic esophagus Dictated By: Brigido Marsh MD Signed By: <Electronically signed by Brigido Marsh MD in OV> 10/17/18 1136 - ECG Data Tracing #1 EKG interpreted by Rajiv Mccormick MD: Rhythm: sinus Rate: 61 [place]: Left Ectopy: Premature atrial contraction Conduction: normal ST Segment Changes: none T Wave Changes: none Q Waves: none No evidence of acute ischemia or injury Baseline artifact present, but I consider the EKG adequate for accurate interpretation. Prior electrocardiagrams reviewed. No change from prior tracings. - Physician Consults Physician Consulted: Hebert Time: 12:16 Reason -: Admission Comment/Response: Agrees to admit the patient to the hospital. We discussed the patient's clinical information, including history, exam, laboratory and radiology results and ED course. Per hospital procedure, I will write temporary bridge inpatient orders on the patient. Specific orders requested by the admitting physician: Continue IV fluids, pain medication, n.p.o., nausea med ication General Adult HPI - General Stated complaint: upper stomach pain, pancreais Time Seen by Provider: 10/17/18 09:35 - History of Present Illness HPI narrative: Complains of epigastric abdominal pain vomiting, and constipation that began yesterday. Abdominal pain improved on its own yesterday, but today came back severely. Has a history of recurrent pancreatitis. Had an episode in July and was discovered to have cholelithiasis. Had a cholecystectomy. Had a recurrence of pancreatitis in August. Was transferred from here to [facility] and was admitted to [facility] due to the possibility of obstructing stone. She had MRA/MRCP that showed pancreatitis, but no biliary/pancreatic duct obstruction. Now has the same symptoms again. Does not have a PCP. States that she gave herself an enema yesterday. Initially it was thought that her pancreatitis was gallstone induced. Or, second episode of pancreatitis occurred without evidence of common bile duct obstruction. She also now has a third episode. She does not know if she has hyperlipidemia. She is not a drinker. - Related Data Home Medications Medication Instructions Recorded Confirmed No Known Home Medications 07/15/18 10/17/18 Allergies Allergy/AdvReac Type Severity Reaction Status Date / Time diphenhydramine Allergy Rash Verified 10/17/18 09:40 [From Benadryl] [facility] History - Hepatitis A Screen Attestation statement:: This patient has been screened for Hepatitis A risk factors. I have reviewed the patient's past medical history: Yes Medical History: Reports:: Dementia, Gastroesophageal Reflux Disease(GERD), Hypertension, Transient Ischemic Attacks (TIA) Denies:: Diabetes Mellitus Type 1, Diabetes Mellitus Type 2, Internal Pacemaker, Lung Disease, Seizures Other Medical History: Reports: Other Laterality Cases: Left: Arthroscopy Shoulder Other Surgeries: Yes: Cholecystectomy, Tubal Ligation, Other (Right shoulder ORIF). No: Pacemaker - Social History Smoking Status: Never smoker Alcohol Intake: never Occupational Status: retired Housing: house Household Members: family - Psychiatric History Pschychiatric History:: Reports:: Bipolar Disorder Family Hx:: Cancer, Coronary Artery Disease, Diabetes, Heart Attack, Hyperlipidemia, Hypertension ROS Obtained: Yes All systems reviewed & no additional complaints - Constitutional Constitutional: Denies fever(s) - Cardiovascular Cardiovascular: Denies chest pain - Gastrointestinal Gastrointestingal: Reports: abdominal pain, constipation, vomiting Physical Exam - General General appearance: alert, in distress Comment: moaning constantly - Head Head exam: atraumatic, normocephalic - Eye Eye exam: Present: normal appearance, PERRL, EOMI - ENT ENT exam: Present: mucous membranes dry - Neck Neck exam: Present: normal inspection, trachea midline - Chest Chest inspection: Present: normal inspection, symmetric chest wall rise - Respiratory Respiratory exam: Present: normal lung sounds bilaterally. Absent: respiratory distress - Cardiovascular Cardiovascular exam: Present: regular rate, normal rhythm, normal heart sounds - Abdominal Exam Abdominal exam: Present: tenderness, guarding Abdominal tenderness: Present: diffuse - Extremities Exam Extremities exam: Present: normal inspection - Neurological Exam Neurological exam: Present: alert - Psychiatric Psychiatric exam: Present: anxious - Skin Skin exam: Present: warm, dry
[2018-10-17 10:02] LABS: Basophils % 0.7 % (0.1-2.0); Eosinophils # 0.1 K/mm3 (0.0-0.4); Eosinophils % 1.5 % (0.1-12.0); Hematocrit 44.2 % (37.0-47.0); Lymphocytes # 3.1 K/mm3 (0.7-4.5); Lymphocytes % 55.2 % (10-50); Mean Corpuscular HGB Conc 33.8 g/dL (31.8-35.4); Mean Corpuscular Volume 94.6 fl (81-99); Mean Platelet Volume 8.5 fl (7.4-10.4); Monocytes # 0.4 K/mm3 (0.1-1.0); Monocytes % 6.2 % (1.7-9.3); Neutrophils % 36.5 % (37.0-80.0); Platelet Count 167 K/mm3 (142-424); Red Blood Count 4.68 M/mm3 (4.20-5.40); Red Cell Distribution Width 13.5 % (11.5-17.5); White Blood Count 5.6 K/mm3 (4.8-10.8)
[2018-10-17 10:14] LABS: Albumin Level 3.3 gm/dL (3.4-5.0); Albumin/Globulin Ratio 0.9 (1.1-1.8); Anion Gap 16.7 mEq/L (5-15); Bilirubin,Total 3.3 mg/dL (0.2-1.0); Calcium 8.9 mg/dL (8.5-10.1); Globulin 3.7 gm/dl (1.3-3.2)
[2018-10-17 10:32] LABS: Potassium 2.7 mmoL/L (3.5-5.1)
[2018-10-17 10:34] LABS: Lymphocytes % 60 % (10-50); Monocytes % 7 % (2-9); Neutrophils % 33 % (42-76); Total Cells Counted 100
[2018-10-17 10:35] LABS: RBC Morphology Normal
[2018-10-17 12:20] LABS: Chol/HDL Ratio 2.5 (1-3.5)
--- NOTE | 2018-10-17 14:58 | Pharmacy Consult Notes ---
[facility] Pharmacy VTE Monitoring - Patient Demographics Admission date: 10/17/18 Report Date: 10/17/18 Time: 14:58 Allergies/Adverse Reactions: Patient Allergies diphenhydramine [From Benadryl] Allergy (Verified 10/17/18 09:40) Rash Height: 1.63 m Weight: 56.444 kg Patient Problems: Current Active Problems Acute pancreatitis (Acute) Hypokalemia (Acute) - VTE Risk Labs: VTE Related Lab Results Hgb 15.0 g/dL (12.2-16.2) 10/17/18 09:45 Hct 44.2 % (37.0-47.0) 10/17/18 09:45 Plt Count 167 K/mm3 (142-424) 10/17/18 09:45 BUN 8 mg/dL (7-18) 10/17/18 09:45 Creatinine 0.82 mg/dL (0.55-1.02) 10/17/18 09:45 Estimated Creat Clear 41 mL/min (50-200) 10/17/18 09:45 VTE Score: 2 VTE Risk Level: Very Low Risk - Prophylaxis VTE Prophylaxis Ordered?: Yes Types of VTE Prophylaxis: TEDS Knee High Location of Applied Device: Bilateral Lower Extremeties - VTE Diagnosis Confirmed Treatment or plan recommended: Continue Current Treatment
[2018-10-18 07:10] LABS: Albumin/Globulin Ratio 0.8 (1.1-1.8); Anion Gap 11.1 mEq/L (5-15); Bilirubin,Total 1.1 mg/dL (0.2-1.0); Calcium 8.3 mg/dL (8.5-10.1); Globulin 3.6 gm/dl (1.3-3.2); Potassium 4.1 mmoL/L (3.5-5.1); Total Protein,Serum 6.6 gm/dL (6.4-8.2)
--- NOTE | 2018-10-18 12:53 | History & Physical Report ---
*Admission Date: 10/17/18 *Chief complaint: abd pain *History of present illness: this wf presented to the ed with abd pain with known hx of pancreatitis of uncertain etiology with last eval at in aug - no etoh and has had gb surg -pt with dec po intake and sig pain -omplains of epigastric abdominal pain vomiting, and constipation that began yesterday. Abdominal pain improved on its own yesterday, but today came back severely. Has a history of recurrent pancreatitis. Had an episode in July and was discovered to have cholelithiasis. Had a cholecystectomy. Had a recurrence of pancreatitis in August. Was transferred from here to [facility] and was admitted to [facility] due to the possibility of obstructing stone. She had MRA/MRCP that showed pancreatitis, but no biliary/pancreatic duct obstruction. Now has the same symptoms again. Does not have a PCP. States that she gave herself an enema yesterday. Initially it was thought that her pancreatitis was gallstone induced. Or, second episode of pancreatitis occurred without evidence of common bile duct obstruction. She also now has a third episode. She does not know if she has hyperlipidemia. She is not a drinker.she was admitted for treatment and eval [facility] History Medical History: Reports:: Dementia, Gastroesophageal Reflux Disease(GERD), Hypertension, Transient Ischemic Attacks (TIA) Denies:: Cancer, Diabetes Mellitus Type 1, Diabetes Mellitus Type 2, Internal Pacemaker, Lung Disease, MRSA, Seizures *Have you ever received a pneumonia vaccine?: Yes *Have you received a flu vaccine this season?: Yes Other Medical History: Reports: Other Laterality Cases: Left: Arthroscopy Shoulder Other Surgeries: Yes: Cholecystectomy, Tubal Ligation, Other (Right shoulder ORIF). No: Pacemaker - *Social History Educational Level: Completed Grade School Smoking Status: Never smoker Alcohol Intake: never *Occupational Status:: retired Housing: house Household Members: family *Travel in the last 8 weeks: None - Psychiatric History Expresses thoughts of harming self/others: None Suicide Plan Description: No Plan Pschychiatric History:: Reports:: Bipolar Disorder Family Hx:: Cancer, Coronary Artery Disease, Diabetes, Heart Attack, H yperlipidemia, Hypertension Review of Systems - Review of Systems Review of systems:: pertinent systems reviewed and negative unless documented below - Constitutional Denies fever(s) - Eyes Denies change in vision - ENT Denies neck pain, Denies sore throat - *Cardiovascular Denies chest pain, Denies radiating jaw, neck or arm pain - *Respiratory Denies cough, Denies shortness of breath - *Gastrointestinal Reports abdominal pain, Reports heartburn, Reports nausea, Reports vomiting - *Genitourinary Denies blood in urine - *Musculoskeletal Denies joint pain, Denies joint swelling - Integumentary/Breasts Denies rash - *Neurologic Denies headache(s), Denies seizure-like activity - Psychiatric Denies anxiety, Denies thoughts of hurting/killing yourself Meds Home Medications Medication Instructions Recorded Confirmed Type No Known Home Medications 07/15/18 10/17/18 History Allergies Allergy/AdvReac Type Severity Reaction Status Date / Time diphenhydramine Allergy Rash Verified 10/17/18 09:40 [From Benadryl] Exam Vital signs and Labs for Last 24 Hours: Temp Pulse Resp BP Pulse Ox 98.3 F 88 16 151/95 H 97 10/18/18 08:00 10/18/18 08:00 10/18/18 08:00 10/18/18 08:00 10/18/18 08:00 Laboratory Results - last 24 hr 10/17/18 14:20: Lactate 3.3 H 10/17/18 17:06: Lactate 3.0 H 10/18/18 06:36: Sodium 141, Potassium 4.1 D, Chloride 108 H, Carbon Dioxide 26, Anion Gap 11.1, BUN 9, Creatinine 0.76, Estimated Creat Clear 43, Estimated GFR 74, Est GFR ( Amer) 89, Glucose 185 H D, Calcium 8.3 L, Total Bilirubin 1.1 H, AST 292 H D, ALT 614 H*, Alkaline Phosphatase 186 H, Total Protein 6.6, Albumin 3.0 L, Globulin 3.6 H, Albumin/Globulin Ratio 0.8 L, Amylase 451 H* D, Lipase 5503 H I & O for Last 24 hours: Intake & Output 10/16/18 10/17/18 10/18/18 10/19/18 11:59 11:59 11:59 11:59 Intake Total 595 / 595 Output Total 650 / 650 Balance -55 / -55 Weight 124 lb 128 lb 2 oz - Constitutional no acute distress, average body habitus - *Routine HEENT Exam Head: Present: normocephalic Eye: Present: EOMI, PERRL. Absent: conjunctival icterus ENT: Present: mucous membranes dry - *Routine Neck Exam Present: supple. Absent: JVD, carotid bruit - *Routine Respiratory Exam Present: decreased breath sounds. Absent: respiratory distress - *Routine Cardiovascular Exam Present: RRR, murmur, S4 Comments: murmur rad to neck - *Routine Abdominal Exam Present: soft, tenderness - *Routine Extremities Exam Absent: calf tenderness - Routine Back/Spine/Pelvis Exam Back/Spine: Absent: CVA tenderness - *Routine Skin Exam Present: intact - *Routine Neurological Exam Present: alert, oriented X3, CN II-XII intact. Absent: motor deficit - Routine Psychiatric Exam Present: normal affect Assessment and Plan (1) Heart murmur Current visit: Yes Status: Acute Category: Medical Code(s): R01.1 - Cardiac murmur, unspecified (2) Acute pancreatitis Current visit: Yes Status: Acute Qualifiers: Pancreatitis type: unspecified pancreatitis type Acute pancreatitis complication: no infection or necrosis Qualified Code(s): K85.90 - Acute pancreatitis without necrosis or infection, unspecified Category: Medical Code(s): K85.90 - Acute pancreatitis without necrosis or infection, unspecified (3) Hypokalemia Current visit: Yes Status: Acute Category: Medical Code(s): E87.6 - Hypokalemia (4) Status post laparoscopic cholecystectomy Current visit: No Status: Acute Category: Surgical Code(s): Z90.49 - Acquired absence of other specified parts of digestive tract (5) Elevated liver function tests Current visit: Yes Status: Acute Category: Medical Code(s): R94.5 - Abnormal results of liver function studies
[2018-10-19 08:06] LABS: Basophils % 0.1 % (0.1-2.0); Eosinophils # 0.1 K/mm3 (0.0-0.4); Eosinophils % 0.8 % (0.1-12.0); Hematocrit 41.9 % (37.0-47.0); Hemoglobin 14.1 g/dL (12.2-16.2); Lymphocytes # 1.1 K/mm3 (0.7-4.5); Lymphocytes % 8.4 % (10-50); Mean Corpuscular HGB Conc 33.6 g/dL (31.8-35.4); Mean Corpuscular Hemoglobin 31.7 pg (27.0-31.2); Mean Corpuscular Volume 94.2 fl (81-99); Mean Platelet Volume 8.1 fl (7.4-10.4); Monocytes # 0.5 K/mm3 (0.1-1.0); Monocytes % 3.8 % (1.7-9.3); Neutrophils # 11.4 K/mm3 (1.8-7.8); Neutrophils % 86.8 % (37.0-80.0); Platelet Count 121 K/mm3 (142-424); Red Blood Count 4.45 M/mm3 (4.20-5.40); Red Cell Distribution Width 13.7 % (11.5-17.5); White Blood Count 13.2 K/mm3 (4.8-10.8)
[2018-10-19 08:17] LABS: Albumin Level 2.6 gm/dL (3.4-5.0); Anion Gap 13.2 mEq/L (5-15); Bilirubin,Direct 0.4 mg/dL (0.0-0.2); Bilirubin,Indirect 0.8 mg/dL (0.0-0.9); Bilirubin,Total 1.2 mg/dL (0.2-1.0); Calcium 8.4 mg/dL (8.5-10.1); Potassium 4.2 mmoL/L (3.5-5.1); Total Protein,Serum 6.1 gm/dL (6.4-8.2)
--- NOTE | 2018-10-19 09:08 | Progress Note ---
Internal Medicine - PN: Subj *Date: 10/19/18 *Time: 09:06 Interval history: Patient complaining of constipation Exam Vital signs and Labs for Last 24 Hours: Temp Pulse Resp BP Pulse Ox 98.2 F 98 H 16 155/76 H 95 10/19/18 08:00 10/19/18 08:00 10/19/18 08:00 10/19/18 08:00 10/19/18 08:00 Laboratory Results - last 24 hr 10/19/18 07:55: WBC 13.2 H D, RBC 4.45, Hgb 14.1, Hct 41.9, MCV 94.2, MCH 31.7 H , MCHC 33.6, RDW 13.7, Plt Count 121 L D, MPV 8.1, Neut % (Auto) 86.8 H, Lymph % (Auto) 8.4 L, [place] % (Auto) 3.8, Eos % (Auto) 0.8, Baso % (Auto) 0.1, Neut # (Auto) 11.4 H, Lymph # (Auto) 1.1, [place] # (Auto) 0.5, Eos # (Auto) 0.1, Baso # (Auto) 0.0 10/19/18 07:55: Sodium 135 L, Potassium 4.2, Chloride 103, Carbon Dioxide 23, Anion Gap 13.2, BUN 6 L D, Creatinine 0.54 L D, Estimated Creat Clear 43, Est imated GFR 109, Est GFR ( Amer) 132 D, Glucose 136 H, Calcium 8.4 L, Total Bilirubin 1.2 H, Direct Bilirubin 0.4 H, Indirect Bilirubin 0.8, AST 99 H D, ALT 360 H*, Alkaline Phosphatase 134 H, Total Protein 6.1 L, Albumin 2.6 L D, Lipase 1172 H I & O for Last 24 hours: Intake & Output 10/16/18 10/17/18 10/18/18 10/19/18 11:59 11:59 11:59 11:59 Intake Total 595 / 595 1680 / 1680 Output Total 650 / 650 2250 / 2250 Balance -55 / -55 -570 / -570 Weight 124 lb 128 lb 2 oz 130 lb 8 oz - Constitutional no acute distress - *Routine HEENT Exam Head: Present: normocephalic Eye: Present: EOMI, PERRL ENT: Present: mucous membranes moist - *Routine Neck Exam Present: supple. Absent: lymphadenopathy - *Routine Respiratory Exam Present: CTA bilaterally - *Routine Cardiovascular Exam Present: RRR - *Routine Abdominal Exam Present: soft, normoactive bowel sounds, tenderness - *Routine Extremities Exam Absent: cyanosis, clubbing, edema - *Routine Skin Exam Present: warm. Absent: rash - *Routine Neurological Exam Present: alert, oriented X3 - Routine Psychiatric Exam Present: normal affect Assessment and Plan (1) Heart murmur Current visit: Yes Status: Acute Category: Medical Code(s): R01.1 - Cardiac murmur, unspecified (2) Acute pancreatitis Current visit: Yes Status: Acute Qualifiers: Pancreatitis type: unspecified pancreatitis type Acute pancreatitis complication: no infection or necrosis Qualified Code(s): K85.90 - Acute pancreatitis without necrosis or infection, unspecified Category: Medical Code(s): K85.90 - Acute pancreatitis without necrosis or infection, unspecified (3) Hypokalemia Current visit: Yes Status: Acute Category: Medical Code(s): E87.6 - Hypokalemia (4) Status post laparoscopic cholecystectomy Current visit: No Status: Acute Category: Surgical Code(s): Z90.49 - Acquired absence of other specified parts of digestive tract (5) Elevated liver function tests Current visit: Yes Status: Acute Category: Medical Code(s): R94.5 - Abnormal results of liver function studies - Assessment and plan all Dx Assessment and Plan for all problems:: Rounded with Dr. Ambrosio all orders per Hebert Cortes for possible ERCP due to elevated liver enzymes and abdominal pain
[2018-10-19 09:26] LABS: Lymphocytes % 3 % (10-50); Monocytes % 5 % (2-9); Neutrophils % 86 % (42-76); Total Cells Counted 100
--- NOTE | 2018-10-19 17:24 | Cardiology Report ---
PROCEDURE: 2-D M-mode and color Doppler study INDICATIONS FOR THE TEST: Chest pain COPD Heart Murmur+ Tobacco Smoking Palpitations Fatigue Syncope Edema Hypertension+Diabetes Mellitus Rheumatic Fever SOB ESTRADA Obesity Hyperlipidemia Family History HD+ Additional History gerd,pancreatitis PATIENT INFORMATION HEIGHT: 64 WEIGHT:128 GENDER: Female B/P:151/95 2-D/M-MODE INTERPRETATION: 2-D MEASUREMENTS OBSERVED VALUES IN CMS Right Ventricular Dimension (RVDd) 2.2 Interventricular Septum (Thickness)(IVsd) 1.2 Left Ventricular Internal Dimensions(LVIDd) 5.4 Left Ventricular Posterior Wall (Thickness)(LVPWd) 0.7 Aortic Root 1.9 Aortic Cusp Separation 1.2 Left Atrial Dimensions (LAD) 4.6 2D 1. Left atrium is mildly enlarged, left ventricle is normal size, mild concentric left ventricular hypertrophy, visually estimated ejection fraction 55% with no regional wall motion abnormality. 2. The right atrium and right ventricle are normal size and contractility. 3. The aortic valve is thickened and calcified with mild resection the leaflet mobility. 4. The mitral and tricuspid valve leaflets are minimally thickened. 5. The pulmonic valve is poorly visualized. 6. No significant pericardial effusion noted. DOPPLER INTERROGATION: 1. The maximum aortic out flow velocity recorded study 3 m/s, resulting in a mean gradient across valve of 19 mmHg, this represents mild aortic stenosis, there is mild aortic insufficiency present. 2. The mitral inflow velocity within normal range, there is no mitral stenosis, there is mild mitral regurgitation, grade 1 diastolic dysfunction seen with tissue Doppler evidence of raised left atrial pressure. 3. Mild tricuspid regurgitation, tricuspid regurgitation jet velocity is inadequate for calculation of the right ventricular systolic pressure, inferior vena cava is not well visualized. CONCLUSION: 1. Mildly enlarged left atrium, normal left ventricular size, mild concentric left ventricular hypertrophy, visually estimated ejection fraction 55% with no regional wall motion abnormality, grade 1 diastolic dysfunction seen with tissue Doppler evidence of raised left atrial pressure. 2. Thickened and calcified aortic valve with mean gradient across valve of 19 mmHg, represents mild aortic stenosis, there is mild aortic insufficiency present. 3. Mild mitral and tricuspid regurgitation 4. No significant pericardial effusion noted.
[2018-10-20 08:57] LABS: Basophils % 0.1 % (0.1-2.0); Eosinophils # 0.2 K/mm3 (0.0-0.4); Eosinophils % 1.4 % (0.1-12.0); Hematocrit 40.1 % (37.0-47.0); Hemoglobin 13.8 g/dL (12.2-16.2); Lymphocytes # 0.9 K/mm3 (0.7-4.5); Lymphocytes % 8.1 % (10-50); Mean Corpuscular HGB Conc 34.3 g/dL (31.8-35.4); Mean Corpuscular Hemoglobin 32.1 pg (27.0-31.2); Mean Corpuscular Volume 93.7 fl (81-99); Mean Platelet Volume 8.2 fl (7.4-10.4); Monocytes # 0.6 K/mm3 (0.1-1.0); Monocytes % 5.7 % (1.7-9.3); Neutrophils # 9.5 K/mm3 (1.8-7.8); Neutrophils % 84.7 % (37.0-80.0); Platelet Count 130 K/mm3 (142-424); Red Blood Count 4.28 M/mm3 (4.20-5.40); Red Cell Distribution Width 13.5 % (11.5-17.5); White Blood Count 11.2 K/mm3 (4.8-10.8)
[2018-10-20 09:24] LABS: Albumin Level 2.7 gm/dL (3.4-5.0); Albumin/Globulin Ratio 0.7 (1.1-1.8); Bilirubin,Total 1.5 mg/dL (0.2-1.0); Calcium 8.9 mg/dL (8.5-10.1); Globulin 3.9 gm/dl (1.3-3.2); Total Protein,Serum 6.6 gm/dL (6.4-8.2)
--- NOTE | 2018-10-20 09:39 | Progress Note ---
Internal Medicine - PN: Subj *Date: 10/20/18 *Time: 09:37 Interval history: Patient to see Dr. Cortes today for possible ERCP for elevated liver enzymes. Exam Vital signs and Labs for Last 24 Hours: Temp Pulse Resp BP Pulse Ox 97.7 F 91 H 18 148/74 H 96 10/20/18 08:00 10/20/18 08:00 10/20/18 08:00 10/20/18 08:00 10/20/18 08:00 Laboratory Results - last 24 hr 10/20/18 08:46: WBC 11.2 H, RBC 4.28, Hgb 13.8, Hct 40.1, MCV 93.7, MCH 32.1 H, MCHC 34.3, RDW 13.5, Plt Count 130 L, MPV 8.2, Neut % (Auto) 84.7 H, Lymph % (Auto) 8.1 L, [place] % (Auto) 5.7, Eos % (Auto) 1.4, Baso % (Auto) 0.1, Neut # (Auto) 9.5 H, Lymph # (Auto) 0.9, [place] # (Auto) 0.6, Eos # (Auto) 0.2, Baso # (Auto) 0.0 10/20/18 08:46: Sodium 137, Potassium 4.0, Chloride 102, Carbon Dioxide 24, Anion Gap 15.0, BUN 6 L, Creatinine 0.57, Estimated Creat Clear 44, Estimated GFR 103, Est GFR ( Amer) 124, Glucose 101, Calcium 8.9, Total Bilirubin 1.5 H, AST 64 H D, ALT 271 H, Alkaline Phosphatase 124 H, Total Protein 6.6, Albumin 2.7 L, Globulin 3.9 H, Albumin/Globulin Ratio 0.7 L I & O for Last 24 hours: Intake & Output 10/17/18 10/18/18 10/19/18 10/20/18 11:59 11:59 11:59 11:59 Intake Total 595 / 595 1680 / 1680 4214 / 4214 Output Total 650 / 650 2250 / 2250 2049 Balance -55 / -55 -570 / -570 2164 / 2164 Weight 124 lb 128 lb 2 oz 130 lb 8 oz 131 lb 6 oz Microbiology Reports for the Last 24 Hours: Microbiology 10/17/18 12:15 Blood Blood Culture - Preliminary NO GROWTH AFTER 48 HOURS 10/17/18 09:45 Blood Blood Culture - Preliminary NO GROWTH AFTER 48 HOURS - Constitutional no acute distress - *Routine HEENT Exam Head: Present: normocephalic Eye: Present: EOMI, PERRL ENT: Present: mucous membranes moist - *Routine Neck Exam Present: supple. Absent: lymphadenopathy - *Routine Respiratory Exam Present: CTA bilaterally - *Routine Cardiovascular Exam Present: RRR - *Routine Abdominal Exam Present: soft, tenderness - *Routine Rectal Exam Patient deferred: digital exam Visual: Present: normal rectal tone. Absent: fecal impaction Digital: Present: normal inspection - *Routine Extremities Exam Absent: cyanosis, clubbing, edema - *Routine Skin Exam Present: warm. Absent: rash - *Routine Neurological Exam Present: alert, oriented X3 - Routine Psychiatric Exam Present: normal affect Assessment and Plan (1) Heart murmur Current visit: Yes Status: Acute Category: Medical Code(s): R01.1 - Cardiac murmur, unspecified (2) Acute pancreatitis Current visit: Yes Status: Acute Qualifiers: Pancreatitis type: unspecified pancreatitis type Acute pancreatitis complication: no infection or necrosis Qualified Code(s): K85.90 - Acute pancreatitis without necrosis or infection, unspecified Category: Medical Code(s): K85.90 - Acute pancreatitis without necrosis or infection, unspecified (3) Hypokalemia Current visit: Yes Status: Acute Category: Medical Code(s): E87.6 - Hypokalemia (4) Status post laparoscopic cholecystectomy Current visit: No Status: Acute Category: Surgical Code(s): Z90.49 - Acquired absence of other specified parts of digestive tract (5) Elevated liver function tests Current visit: Yes Status: Acute Category: Medical Code(s): R94.5 - Abnormal results of liver function studies - Assessment and plan all Dx Assessment and Plan for all problems:: Rounded with Dr. Ambrosio all orders per Hebert Cortes to consult today
--- NOTE | 2018-10-20 14:51 | Procedure Note ---
[facility] Procedure Note Procedure Note:: ERCP procedure Report: Endoscopic retrograde cholangiopancreatography with biliary sphincterotomy and balloon extraction Endoscopist: Dorian Cortes II, MD Referring Physician: Miguelangel Ambrosio MD Date of Procedure: October 20, 2018 Equipment: Olympus 180 side viewing endoscope duodenoscope Sedation: MAC sedation Indication: Mrs. Wheatley is a 78-year-old female who does have a history of achalasia and had been followed by [facility] in the past. She recently had cholecystectomy for numerous gallbladder stones in July 2018 (Dr. Miguel Lopez). The patient did have intraoperative cholangiography which was normal. The patient did have symptomatic cholelithiasis and pancreatitis at that time. The patient had a recurrent bout of pancreatitis in August and was sent to the [facility]. She did have an MRCP which showed no biliary ductal stones and she was eventually sent home. The patient returns with abdominal pain and pancreatitis for the third time. Her alkaline phosphatase was 186 with ALT 614 and total bilirubin 1.1. Her lipase level was 5503. She did have a CT scan of the abdomen showing intra-and extrahepatic biliary ductal dilation. ERCP is performed for further evaluation. Procedure: Prior to the procedure, a history and physical exam was performed, and patient's medications and allergies were reviewed. The risks, benefits and alternatives of the sedation and procedure were discussed with the patient. All questions were answered and informed consent was obtained. The patient was brought to the fluoroscopic radiology room. Patient identification and proposed procedure were verified by the physician and the nurse. The patient was placed in a swimmer's position between left lateral decubitus and prone position and the scope was passed under direct vision. Throughout the procedure, the patient's blood pressure, pulse, and oxygen saturations were monitored continuously. The ERCP was accomplished without difficulty. The patient tolerated the procedure well. Findings: The side-viewing endoscope was passed directly into the upper esophagus and advanced to the second portion of the duodenum. There was a marked amount of liquid in the esophagus with stasis changes consistent with achalasia. The stomach and duodenum were grossly normal. The ampulla was well visualized. The common bile duct was selectively cannulated. The cholangiogram did show a 9-10 mm common bile duct with normal filling of the intrahepatic biliary system. The cystic duct stump was identified but there was some extrinsic compression of the biliary system at the cystic duct but no defined stricture. There was delayed drainage of contrast from the biliary system. The re was no specific filling defect identified. A generous biliary sphincterotomy was performed. Next, a 9-12 mm sweeping balloon was swept through the biliary system from the hilum twice with the passage of bile and contrast. There was excellent decompression of the biliary system. The pancreatic duct was not cannulated intentionally. 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 Achalasia Plan: The patient should have clinical improvement and hopefully no further bouts of biliary pancreatitis. I will discuss findings with patient and family.
--- NOTE | 2018-10-20 16:16 | Progress Note ---
[facility] Anesthesia Checklist - Patient Identification Patient Identification: Arm Band - Structural Data Admitted From: Home Planned Operative Procedure/s: ercp Consent for Planned Operative Procedure(s) Verified: Yes Verified Documents: Surgical Consent, History and Physical - NPO Status Verified Time NPO: 00:00 - Additional verifications Anesthesia Reactions: No - Airway Assessment C-Spine Mobility Assessed: Yes (mp2) TMJ Mobility Assessed: Yes Dentition: Good Dentition - Neurological Assessment Level of Consciousness: Awake, Alert - Anesthesia Plan Anesthesia Risk discussed: Yes Anesthesia Plan: Verified ASA Class: III Anesthesia Type: MAC [facility] History I have reviewed the patient's past medical history: Yes Medical History: Reports:: Dementia, Gastroesophageal Reflux Disease(GERD), Hypertension, Transient Ischemic Attacks (TIA) Denies:: Cancer, Diabetes Mellitus Type 1, Diabetes Mellitus Type 2, Internal Pacemaker, Lung Disease, MRSA, Seizures *Have you ever received a pneumonia vaccine?: Yes *Have you received a flu vaccine this season?: Yes Other Medical History: Reports: Other Laterality Cases: Left: Arthroscopy Shoulder Other Surgeries: Yes: Cholecystectomy, Tubal Ligation, Other (Right shoulder ORIF). No: Pacemaker - *Social History Educational Level: Completed Grade School Smoking Status: Never smoker Alcohol Intake: never *Occupational Status:: retired Housing: house Household Members: family *Travel in the last 8 weeks: None - Psychiatric History Expresses thoughts of harming self/others: None Suicide Plan Description: No Plan Pschychiatric History:: Reports:: Bipolar Disorder Family Hx:: Cancer, Coronary Artery Disease, Diabetes, Heart Attack, Hyperlipidemia, Hypertension
[2018-10-21 06:23] LABS: Basophils % 0.3 % (0.1-2.0); Eosinophils # 0.1 K/mm3 (0.0-0.4); Eosinophils % 1.6 % (0.1-12.0); Hematocrit 36.9 % (37.0-47.0); Hemoglobin 12.5 g/dL (12.2-16.2); Lymphocytes % 16.6 % (10-50); Mean Platelet Volume 8.3 fl (7.4-10.4); Monocytes # 0.5 K/mm3 (0.1-1.0); Monocytes % 7.4 % (1.7-9.3); Neutrophils # 4.5 K/mm3 (1.8-7.8); Neutrophils % 74.2 % (37.0-80.0); Platelet Count 135 K/mm3 (142-424); Red Blood Count 3.92 M/mm3 (4.20-5.40); Red Cell Distribution Width 13.4 % (11.5-17.5); White Blood Count 6.1 K/mm3 (4.8-10.8)
[2018-10-21 06:43] LABS: Albumin Level 2.4 gm/dL (3.4-5.0); Albumin/Globulin Ratio 0.6 (1.1-1.8); Anion Gap 13.1 mEq/L (5-15); Bilirubin,Total 1.4 mg/dL (0.2-1.0); Calcium 8.5 mg/dL (8.5-10.1); Globulin 3.8 gm/dl (1.3-3.2); Potassium 4.1 mmoL/L (3.5-5.1); Total Protein,Serum 6.2 gm/dL (6.4-8.2)
--- NOTE | 2018-10-21 08:22 | Progress Note ---
Internal Medicine - PN: Subj *Date: 10/21/18 *Time: 08:21 Interval history: doing better Exam Vital signs and Labs for Last 24 Hours: Temp Pulse Resp BP Pulse Ox 98.2 F 78 18 148/69 H 96 10/21/18 04:00 10/21/18 04:00 10/21/18 04:00 10/21/18 04:00 10/21/18 04:00 Laboratory Results - last 24 hr 10/20/18 08:46: WBC 11.2 H, RBC 4.28, Hgb 13.8, Hct 40.1, MCV 93.7, MCH 32.1 H, MCHC 34.3, RDW 13.5, Plt Count 130 L, MPV 8.2, Neut % (Auto) 84.7 H, Lymph % (Auto) 8.1 L, [place] % (Auto) 5.7, Eos % (Auto) 1.4, Baso % (Auto) 0.1, Neut # (Auto) 9.5 H, Lymph # (Auto) 0.9, [place] # (Auto) 0.6, Eos # (Auto) 0.2, Baso # (Auto) 0.0 10/20/18 08:46: Sodium 137, Potassium 4.0, Chloride 102, Carbon Dioxide 24, Anion Gap 15.0, BUN 6 L, Creatinine 0.57, Estimated Creat Clear 44, Estimated GFR 103, Est GFR ( Amer) 124, Glucose 101, Calcium 8.9, Total Bilirubin 1.5 H, AST 64 H D, ALT 271 H, Alkaline Phosphatase 124 H, Total Protein 6.6, Albumin 2.7 L, Globulin 3.9 H, Albumin/Globulin Ratio 0.7 L 10/21/18 05:35: WBC 6.1 D, RBC 3.92 L, Hgb 12.5, Hct 36.9 L, MCV 94.0, MCH 32.0 H, MCHC 34.0, RDW 13.4, Plt Count 135 L, MPV 8.3, Neut % (Auto) 74.2, Lymph % (Auto) 16.6, [place] % (Auto) 7.4, Eos % (Auto) 1.6, Baso % (Auto) 0.3, Neut # (Auto) 4.5, Lymph # (Auto) 1.0, [place] # (Auto) 0.5, Eos # (Auto) 0.1, Baso # (Auto) 0.0 10/21/18 05:35: Sodium 140, Potassium 4.1, Chloride 107, Carbon Dioxide 24, Anion Gap 13.1, BUN 7, Creatinine 0.58, Estimated Creat Clear 41, Estimated GFR 101, Est GFR ( Amer) 122, Glucose 119 H, Calcium 8.5, Total Bilirubin 1.4 H, AST 191 H D, ALT 306 H*, Alkaline Phosphatase 324 H, Total Protein 6.2 L, Albumin 2.4 L D, Globulin 3.8 H, Albumin/Globulin Ratio 0.6 L I & O for Last 24 hours: Intake & Output 10/18/18 10/19/18 10/20/18 10/21/18 11:59 11:59 11:59 11:59 Intake Total 595 / 595 1680 / 1680 4214 / 4214 2209 / 2209 Output Total 650 / 650 2250 / 2250 0 / 2049 2600 / 2600 Balance -55 / -55 -570 / -570 2164 / 2164 -391 / -391 Weight 128 lb 2 oz 130 lb 8 oz 131 lb 6 oz 123 lb 7 oz - Constitutional no acute distress - *Routine HEENT Exam Head: Present: normocephalic Eye: Present: EOMI, PERRL ENT: Present: mucous membranes dry - *Routine Neck Exam Present: supple. Absent: JVD - *Routine Respiratory Exam Present: CTA bilaterally - *Routine Cardiovascular Exam Present: RRR - *Routine Abdominal Exam Present: soft - *Routine Extremities Exam Present: full ROM - *Routine Skin Exam Present: intact - *Routine Neurological Exam Present: alert, CN II-XII intact - Routine Psychiatric Exam Present: normal affect Assessment and Plan (1) Heart murmur Current visit: Yes Status: Acute Category: Medical Code(s): R01.1 - Cardiac murmur, unspecified (2) Acute pancreatitis Current visit: Yes Status: Acute Qualifiers: Pancreatitis type: unspecified pancreatitis type Acute pancreatitis complication: no infection or necrosis Qualified Code(s): K85.90 - Acute pancreatitis without necrosis or infection, unspecified Category: Medical Code(s): K85.90 - Acute pancreatitis without necrosis or infection, unspecified (3) Hypokalemia Current visit: Yes Status: Acute Category: Medical Code(s): E87.6 - Hypokalemia (4) Status post laparoscopic cholecystectomy Current visit: No Status: Acute Category: Surgical Code(s): Z90.49 - Acquired absence of other specified parts of digestive tract (5) Elevated liver function tests Current visit: Yes Status: Acute Category: Medical Code(s): R94.5 - Abnormal results of liver function studies
[2018-10-22 07:44] LABS: Basophils % 0.6 % (0.1-2.0); Eosinophils # 0.2 K/mm3 (0.0-0.4); Eosinophils % 2.8 % (0.1-12.0); Hematocrit 41.3 % (37.0-47.0); Hemoglobin 13.8 g/dL (12.2-16.2); Lymphocytes # 1.8 K/mm3 (0.7-4.5); Lymphocytes % 25.1 % (10-50); Mean Corpuscular HGB Conc 33.4 g/dL (31.8-35.4); Mean Corpuscular Hemoglobin 31.9 pg (27.0-31.2); Mean Corpuscular Volume 95.5 fl (81-99); Mean Platelet Volume 8.2 fl (7.4-10.4); Monocytes # 0.6 K/mm3 (0.1-1.0); Monocytes % 7.7 % (1.7-9.3); Neutrophils # 4.6 K/mm3 (1.8-7.8); Neutrophils % 63.8 % (37.0-80.0); Platelet Count 194 K/mm3 (142-424); Red Blood Count 4.32 M/mm3 (4.20-5.40); Red Cell Distribution Width 13.4 % (11.5-17.5); White Blood Count 7.2 K/mm3 (4.8-10.8)
[2018-10-22 08:06] LABS: Albumin Level 2.9 gm/dL (3.4-5.0); Albumin/Globulin Ratio 0.7 (1.1-1.8); Anion Gap 13.6 mEq/L (5-15); Bilirubin,Total 0.8 mg/dL (0.2-1.0); Calcium 8.9 mg/dL (8.5-10.1); Globulin 4.2 gm/dl (1.3-3.2); Potassium 3.6 mmoL/L (3.5-5.1); Total Protein,Serum 7.1 gm/dL (6.4-8.2)
[2018-10-22 08:31] VITALS: BP 144/88
--- NOTE | 2018-10-22 08:53 | Discharge Summary ---
General - General Admission date:: 10/17/18 Discharge date: 10/22/18 HPI HPI: this wf presented to the ed with abd pain with known hx of pancreatitis of uncertain etiology with last eval at in aug - no etoh and has had gb surg -pt with dec po intake and sig pain -omplains of epigastric abdominal pain vomiting, and constipation that began yesterday. Abdominal pain improved on its own yesterday, but today came back severely. Has a history of recurrent pancreatitis. Had an episode in July and was discovered to have cholelithiasis. Had a cholecystectomy. Had a recurrence of pancreatitis in August. Was transferred from here to [facility] and was admitted to [facility] due to the possibility of obstructing stone. She had MRA/MRCP that showed pancreatitis, but no biliary/pancreatic duct obstruction. Now has the same symptoms again. Does not have a PCP. States that she gave herself an enema yesterday. Initially it was thought that her pancreatitis was gallstone induced. Or, second episode of pancreatitis occurred without evidence of common bile duct obstruction. She also now has a third episode. She does not know if she has hyperlipidemia. She is not a drinker.she was admitted for treatment and eval Hospital Course Hospital Course: pt did well with slow improvement with npo and ivf and pain meds - she was seen by gi -[facility] [employer] procedure Report: Endoscopic retrograde cholangiopancreatography with biliary sphincterotomy and balloon extraction Endoscopist: Dorian Cortes II, MD Referring Physician: Miguelangel Ambrosio MD Date of Procedure: October 20, 2018 Equipment: Olympus 180 side viewing endoscope duodenoscope Sedation: MAC sedation Indication: Mrs. Wheatley is a 78-year-old female who does have a history of achalasia and had been followed by me in the past. She recently had cholecystectomy for numerous gallbladder stones in July 2018 (Dr. Miguel Lopez). The patient did have intraoperative cholangiography which was normal. The patient did have symptomatic cholelithiasis and pancreatitis at that time. The patient had a recurrent bout of pancreatitis in August and was sent to the [facility]. She did have an MRCP which showed no biliary ductal stones and she was eventually sent home. The patient returns with abdominal pain and pancreatitis for the third time. Her alkaline phosphatase was 186 with ALT 614 and total bilirubin 1.1. Her lipase level was 5503. She did have a CT scan of the abdomen showing intra-and extrahepatic biliary ductal dilation. ERCP is performed for further evaluation. Procedure: Prior to the procedure, a history and physical exam was performed, and patient's medications and allergies were reviewed. The risks, benefits and alternatives of the sedation and procedure were discussed with the patient. All questions were answered and informed consent was obtained. The patient was brought to the fluoroscopic radiology room. Patient identification and proposed procedure were verified by the physician and the nurse. The patient was placed in a swimmer's position between left lateral decubitus and prone position and the scope was passed under direct vision. Throughout the procedure, the patient's blood pressure, pulse, and oxygen saturations were monitored continuously. The ERCP was accomplished without difficulty. The patient tolerated the procedure well. Findings: The side-viewing endoscope was passed directly into the upper esophagus and advanced to the second portion of the duodenum. There was a marked amount of liquid in the esophagus with stasis changes consistent with achalasia. The stomach and duodenum were grossly normal. The ampulla was well visualized. The common bile duct was selectively cannulated. The cholangiogram did show a 9-10 mm common bile duct with normal filling of the intrahepatic biliary system. The cystic duct stump was identified but there was some extrinsic compression of the biliary system at the cystic duct but no defined stricture. There was delayed drainage of contrast from the biliary system. There was no specific filling defect identified. A generous biliary sphincterotomy was performed. Next, a 9-12 mm sweeping balloon was swept through the biliary system from the hilum twice with the passage of bile and contrast. There was excellent decompression of the biliary system. The pancreatic duct was not cannulated intentionally. 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 Achalasia Plan: The patient should have clinical improvement and hopefully no further bouts of biliary pancreatitis. I will discuss findings with patient and family. pt has shahriar diet and lft are improved and lipase nl Objective Vital signs: Temp Pulse Resp BP Pulse Ox 98.3 F 92 H 18 144/88 H 97 10/22/18 08:00 10/22/18 08:00 10/22/18 08:00 10/22/18 08:00 10/22/18 08:00 no acute distress, thin - *Routine HEENT Exam Head: Present: normocephalic Eye: Present: EOMI, PERRL. Absent: conjunctival icterus ENT: Present: mucous membranes dry - *Routine Neck Exam Present: supple - *Routine Respiratory Exam Absent: respiratory distress - *Routine Cardiovascular Exam Present: RRR - *Routine Abdominal Exam Present: soft - *Routine Extremities Exam Present: full ROM - *Routine Skin Exam Present: intact - *Routine Neurological Exam Present: alert, oriented X3, CN II-XII intact - Routine Psychiatric Exam Present: normal affect Results Labs on day of discharge: Labs from last 24 hours 10/22/18 10/22/18 10/21/18 06:35 06:35 05:35 WBC 7.2 RBC 4.32 Hgb 13.8 Hct 41.3 MCV 95.5 MCH 31.9 H MCHC 33.4 RDW 13.4 Plt Count 194 D MPV 8.2 Neut % (Auto) 63.8 Lymph % (Auto) 25.1 Rains % (Auto) 7.7 Eos % (Auto) 2.8 Baso % (Auto) 0.6 Neut # (Auto) 4.6 Lymph # (Auto) 1.8 Rains # (Auto) 0.6 Eos # (Auto) 0.2 Baso # (Auto) 0.0 Sodium 140 Potassium 3.6 Chloride 105 Carbon Dioxide 25 Anion Gap 13.6 BUN 6 L Creatinine 0.67 Estimated Creat Clear 41 Estimated GFR 85 Est GFR ( Amer) 103 Glucose 107 H Calcium 8.9 Total Bilirubin 0.8 AST 63 H D ALT 231 H Alkaline Phosphatase 281 H Total Protein 7.1 Albumin 2.9 L D Globulin 4.2 H Albumin/Globulin Ratio 0.7 L Lipase 109 Preliminary micro results at discharge 10/17/18 12:15 Blood Culture - Preliminary Blood NO GROWTH AFTER 48 HOURS 10/17/18 09:45 Blood Culture - Preliminary Blood NO GROWTH AFTER 48 HOURS DS: Diagnosis - Discharge Diagnosis (1) Heart murmur Status: Acute (2) Acute pancreatitis Status: Acute (3) Hypokalemia Status: Acute (4) Status post laparoscopic cholecystectomy Status: Acute (5) Elevated liver function tests Status: Acute (6) Sphincter of Oddi dysfunction Status: Acute (7) Achalasia of esophagus Status: Acute (8) Aortic stenosis Status: Acute Discharge Plan - Patient Discharge Instructions ACTIVITY: Continue current activity DIET: continue same diet Patient Instructions: Acute Pancreatitis, DI for Hypokalemia, DI for Acute Abdomen - Follow up Plan Disposition: Home, Self-Residential Medications: Home Medications Medication Instructions Recorded Confirmed Type No Known Home Medications 07/15/18 10/17/18 History Docusate Sodium [Docusate Sodium 100 mg PO ONCE #90 capsule 10/22/18 Rx 100mg Cap] Prescriptions/Medication Reconciliation: New Docusate Sodium [Docusate Sodium 100mg Cap] 100 mg PO ONCE #90 capsule No Action No Known Home Medications
== END 2018-10-22 09:40 | disposition home or self-care (01) | DRG 439 ==
LOC: ER 09:26 → 2ND 12:25
PROVIDERS: ADMIT Emergency Medicine; ATTEND Emergency Medicine
CPT/HCPCS: 36415; 74019; 74020; 74177; 74330; 80048; 80053; 80061; 80076; 82150; 83605; 83690; 84484; 85007; 85025; 87040; 93005; 93306; 96365; 96375; 97116; 97162; 97165; 97530; 99285; J2405; Q9967

== ENCOUNTER 2023-09-01 13:29 | Emergency (ER) | payer MEDICARE, OTHER, SELFPAY ==
[2023-09-01] VITALS (8 sets, daily range): BP systolic 139–188; BP diastolic 61–91; PULSE 64–80; RESP 18; TEMP 36.4–36.6; O2SAT 92–96; BMI 18.1
--- NOTE | 2023-09-01 13:27 | ECG_ITS ---
APPROVED REPORT Exam: Resting ECG HR:80 bpm ECG Measurements Heart Rate 80 AXES MD 153 P 80 QRSd 115 QRS -65 QT 399 T 46 QTc 435 Conclusion SINUS RHYTHM PATTERN CONSISTENT WITH PULMONARY DISEASE LEFT ANTERIOR FASCICULAR BLOCK [QRS AXIS <= -45, QR IN I, RS IN II] MODERATE VOLTAGE CRITERIA FOR LVH, CONSIDER NORMAL VARIANT [MEETS CRITERIA IN ONE OF: R(aVL), S(V1), R(V5), R(V5/V6)+S(V1)] ABNORMAL ECG INTERPRETATION BASED ON A DEFAULT AGE OF 40 YEARS UNCONFIRMED REPORT Electronically signed by : Ben Fair MD 09/01/2023 16:32:44
--- NOTE | 2023-09-01 13:44 | CT_ITS ---
FINAL REPORT TECHNIQUE: Axial images were obtained from the lung apices through the pubic symphysis by computed tomography after the administration of IV contrast. Multiplanar reconstruction images were also reviewed. This study was performed with techniques to keep radiation doses as low as reasonably achievable, (ALARA). Individualized dose reduction techniques using automated exposure control or adjustment of mA and/or kV according to the patient's size were employed. CLINICAL HISTORY: abdominal pain, unintentional weight loss COMPARISON: None FINDINGS: CTA CHEST FINDINGS: Mediastinal vasculature is adequately opacified. No pulmonary artery filling defects are identified to suggest PE. There is no aortic dissection. There is no axillary adenopathy. There is no hilar or mediastinal adenopathy. The heart size is normal. There is no pericardial or pleural effusion. The esophagus is markedly enlarged and contains a large amount of debris. No anastomotic suture. There is scarring at the right apex and at both lung bases. No suspicious infiltrate or nodule is identified. CT ABDOMEN & PELVIS W/CONTRAST FINDINGS: Abdomen: The liver parenchyma is homogeneous. There is a low-attenuation focus in the posterior right lobe of the liver measuring up to 2.2 cm, probable benign cyst. The gallbladder is absent. There is calcified granuloma in the spleen. The pancreas, adrenals and kidneys appear unremarkable. The aorta is normal in caliber. There is no free fluid or adenopathy. Pelvis: The appendix is normal. The urinary bladder is normal in size. The uterus is midline. There is no free fluid or adenopathy. IMPRESSION: No pulmonary embolism or other acute abnormality of the chest, abdomen or pelvis. Enlarged debris-filled esophagus. Correlate with any history of achalasia. GI consultation and upper endoscopy may be of value. Reviewed, Interpreted and Dictated by Rao George MD Transcribed by Angelique Jang Authenticated and [facility]
--- NOTE | 2023-09-01 13:44 | CT_ITS ---
FINAL REPORT TECHNIQUE: Axial images were obtained from the lung apices through the pubic symphysis by computed tomography after the administration of IV contrast. Multiplanar reconstruction images were also reviewed. This study was performed with techniques to keep radiation doses as low as reasonably achievable, (ALARA). Individualized dose reduction techniques using automated exposure control or adjustment of mA and/or kV according to the patient's size were employed. CLINICAL HISTORY: chest pain, dysphagia, unintentional weight loss COMPARISON: None FINDINGS: CTA CHEST FINDINGS: Mediastinal vasculature is adequately opacified. No pulmonary artery filling defects are identified to suggest PE. There is no aortic dissection. There is no axillary adenopathy. There is no hilar or mediastinal adenopathy. The heart size is normal. There is no pericardial or pleural effusion. The esophagus is markedly enlarged and contains a large amount of debris. No anastomotic suture. There is scarring at the right apex and at both lung bases. No suspicious infiltrate or nodule is identified. CT ABDOMEN & PELVIS W/CONTRAST FINDINGS: Abdomen: The liver parenchyma is homogeneous. There is a low-attenuation focus in the posterior right lobe of the liver measuring up to 2.2 cm, probable benign cyst. The gallbladder is absent. There is calcified granuloma in the spleen. The pancreas, adrenals and kidneys appear unremarkable. The aorta is normal in caliber. There is no free fluid or adenopathy. Pelvis: The appendix is normal. The urinary bladder is normal in size. The uterus is midline. There is no free fluid or adenopathy. IMPRESSION: No pulmonary embolism or other acute abnormality of the chest, abdomen or pelvis. Enlarged debris-filled esophagus. Correlate with any history of achalasia. GI consultation and upper endoscopy may be of value. Reviewed, Interpreted and Dictated by Rao George MD Transcribed by Angelique Jang Authenticated and [facility]
[2023-09-01 13:51] LABS: Basophils % 0.4 % (0.1-2.0); Eosinophils % 0.2 % (0.1-12.0); Hematocrit 48.7 % (37.0-47.0); Lymphocytes # 1.3 K/mm3 (0.7-4.5); Lymphocytes % 33.3 % (10-50); Mean Corpuscular HGB Conc 32.9 g/dL (31.8-35.4); Mean Corpuscular Hemoglobin 32.5 pg (27.0-31.2); Mean Corpuscular Volume 98.8 fl (81-99); Mean Platelet Volume 9.4 fl (7.4-10.4); Monocytes # 0.4 K/mm3 (0.1-1.0); Monocytes % 9.5 % (1.7-9.3); Neutrophils # 2.2 K/mm3 (1.8-7.8); Neutrophils % 56.7 % (37.0-80.0); Platelet Count 112 K/mm3 (142-424); Red Blood Count 4.93 M/mm3 (4.20-5.40); Red Cell Distribution Width 13.3 % (11.5-17.5); White Blood Count 3.8 K/mm3 (4.8-10.8)
[2023-09-01 13:53] LABS: Chloride 104 mmol/L (98-107); Potassium 3.2 mmoL/L (3.5-5.1); Sodium 140 mmol/L (136-145)
[2023-09-01] MEDS: LACTATED RINGERS 1000ML 1,000 ML 999 ML IV (13:53)
[2023-09-01 13:55] LABS: Alanine Aminotransferase 91 U/L (12-78); Aspartate Amino Transferase 122 U/L (14-36); Blood Urea Nitrogen 16 mg/dl (7-17); Estimated Glomerular Filt Rate 95 ml/min (>60); GFR (African American) 116 ML/MIN (>60)
[2023-09-01 13:56] LABS: Albumin Level 3.9 g/dl (3.5-5.0); Albumin/Globulin Ratio 1.3 (1.1-1.8); Alkaline Phosphatase 120 U/L (38-126); Anion Gap 8.2 mEq/L (5-15); Bilirubin,Total 0.7 mg/dl (0.2-1.3); Carbon Dioxide 31 mmol/L (22.0-30.0); Globulin 3.1 g/dL (1.3-3.2); Glucose 122 mg/dl (74-100); Lipase 96 U/L (23-300); Magnesium 2.1 mg/dl (1.6-2.3); Phosphorous 3.8 mg/dl (2.5-4.5)
[2023-09-01 14:08] LABS: Troponin I < 0.01 ng/ml (0.00-0.034)
--- NOTE | 2023-09-01 14:41 | PC.NURSE ---
PT GONE TO CT
--- NOTE | 2023-09-01 14:49 | ED_ITS ---
Discharge Plan Disposition Patient Disposition: Home, Self-Care Condition: Good Prescriptions Prescriptions: No Action docusate sodium 100 MG capsule 100 mg PO DAILY Qty: 90 0RF Referrals Follow up/Referrals: Provider,Referral, MD [Primary Care Provider] - See instructions Activity Restrictions/Add. Instructions Additional Instructions/Restrictions: Please follow up with gastroenterology right away. You can also contact Dr. Dickesn at [phone]. I also recommend close follow-up with your primary care provider. I encourage liquid/soft diet as you are able to tolerate. Return to the emergency department for new or worsening symptoms. Clinical Impressions Clinical Impression: Dysphagia, Unintentional weight loss, Chest pain, Achalasia Instructions Patient Instructions: DI for Acute Abdominal Pain Discharge ED Provider: Savannah Grant [facility] Adult HPI <Agatha Oliver DO - Last Filed: 09/01/23 15:27> General Chief complaint: Abdominal Pain Stated complaint: CP Time Seen by Provider: 09/01/23 13:30 Mode of Arrival: Ambulatory Source of Information: Patient Limitations: No Limitations Description of Symptoms (Recalled from ER Triage Doc. by RN): pt c/o bilateral flank pain that intermittantly radiates into her back. pt states this began this am. However, pt reports she has had minimal urinary output for some time. pt also reports chest pain last night, when she coughed the pain resolved. pt denies medical hx or going to a dr. for 3 years. History of Present Illness HPI narrative: This patient is an 83-year-old female with history of pancreatitis, sphincter of Oddi dysfunction, and achalasia requiring Botox injections in the past presenting to the emergency department for evaluation with multiple complaints. The patient states that for the last 2 days, she has had cough to the point where she could not catch her breath. She also stated that she had chest pain associated with this cough. The pain is mostly on the right side of her chest wrapping around to her back. She and her family at bedside also note that for the last year, she has not been able to tolerate solid foods without regurgitating the food back up right away. She has tolerated liquids, but for the last 2 weeks, she has had very little intake at all. She has had significant unintentional weight loss over this time. She states that she has no appetite and feels like food will not go down. She also notes that she has had decreased urinary output over the last several weeks as well. She is not having any chest pain or other pain at this time. Related Data Previous Rx's Medication Instructions Recorded docusate sodium 100 mg capsule 100 mg PO DAILY #90 caps 10/22/18 Allergies Allergy/AdvReac Type Severity Reaction Status Date / Time diphenhydramine Allergy Rash Verified 10/17/18 09:40 [From Benadryl] [facility] <Agatha Oliver DO - Last Filed: 09/01/23 15:27> [facility] Disclaimer: The information contained in this section may have been updated after the patient was seen, as this information can be updated by other users. Social History Smoking Status: Never smoker second hand exposure: No alcohol intake: never current occupational status: retired Travel in the last 8 weeks: None household members: family housing: house caffeine: Yes <Agatha Oliver DO - Last Filed: 09/01/23 15:27> ROS Obtained: Yes All systems reviewed & no additional complaints except as documented Physical Exam <Agatha Oliver DO - Last Filed: 09/01/23 15:27> General General appearance: alert and in no apparent distress Head Head exam: atraumatic and normocephalic Eye Eye exam: Present normal appearance, PERRL and EOMI ENT ENT exam: Present normal exam, normal oropharynx, mucous membranes moist and normal external ear exam Neck Neck exam: Present normal inspection, full ROM and trachea midline; Absent tenderness Chest Chest inspection: Present normal inspection and symmetric chest wall rise; Absent tenderness Respiratory Respiratory exam: Present normal lung sounds bilaterally; Absent respiratory distress, wheezes, stridor or accessory muscle use Cardiovascular Cardiovascular exam: Present regular rate and normal rhythm Abdominal Exam Abdominal exam: Present soft; Absent distention, tenderness or guarding Extremities Exam Extremities exam: Present normal inspection, full ROM and normal capillary refill; Absent tenderness or edema Back Exam Back exam: Present normal inspection and full ROM; Absent tenderness Neurological Exam Neurological exam: Present alert, oriented X3, CN II-XII intact and normal gait; Absent motor sensory deficit Psychiatric Psychiatric exam: Present normal affect and normal mood Skin Skin exam: Present warm and dry Medical Decision Making <Agatha Oliver DO - Last Filed: 09/01/23 15:27> Medical Records Medical records reviewed: Yes I reviewed the patient's medical records. Dyllan Inquiry Pt receiving controlled substance: No Vital Signs: 09/01/23 14:00 09/01/23 13:30 09/01/23 14:32 Temperature 97.5 F L Temperature Source Oral Pulse Rate 72 80 Pulse Rate [Left] 78 Respiratory Rate 18 Blood Pressure 185/82 H 188/72 H Blood Pressure [Right Arm] 177/91 H Blood Pressure Mean [Right Arm] 119 Blood Pressure Source [Right Arm] Automatic Cuff Blood Pressure Position [Right Arm] Sitting 02 Sat by Pulse Oximetry 95 96 95 Oxygen Delivery Method Room Air Room Air Room Air 09/01/23 15:30 09/01/23 16:00 09/01/23 16:30 Temperature Temperature Source Pulse Rate 68 64 69 Pulse Rate [Left] Respiratory Rate Blood Pressure 149/69 H 154/67 H 139/61 Blood Pressure [Right Arm] Blood Pressure Mean [Right Arm] Blood Pressure Source [Right Arm] Blood Pressure Position [Right Arm] 02 Sat by Pulse Oximetry 93 L 92 L 93 L Oxygen Delivery Method Room Air Room Air Room Air 09/01/23 17:00 Temperature Temperature Source Pulse Rate 70 Pulse Rate [Left] Respiratory Rate Blood Pressure 160/82 H Blood Pressure [Right Arm] Blood Pressure Mean [Right Arm] Blood Pressure Source [Right Arm] Blood Pressure Position [Right Arm] 02 Sat by Pulse Oximetry 94 L Oxygen Delivery Method Room Air Lab Data Lab results reviewed: Yes I reviewed the patient's lab results. Lab Results 09/01/23 13:30: WBC 3.8 L, RBC 4.93, Hgb 16.0, Hct 48.7 H, MCV 98.8, MCH 32.5 H, MCHC 32.9, RDW 13.3, Plt Count 112 L, MPV 9.4, Neut % (Auto) 56.7, Lymph % (Auto) 33.3, [place] % (Auto) 9.5 H, Eos % (Auto) 0.2, Baso % (Auto) 0.4, Neut # (Auto) 2.2, Lymph # (Auto) 1.3, [place] # (Auto) 0.4, Eos # (Auto) 0.0, Baso # (Auto) 0.0, Sodium 140, Potassium 3.2 L, Chloride 104, Carbon Dioxide 31 H, Anion Gap 8.2, BUN 16, Creatinine 0.60, Estimated GFR 95, Est GFR ( Amer) 116, Glucose 122 H, Calcium 9.0, Phosphorus 3.8, Magnesium 2.1, Total Bilirubin 0.7, AST 122 H, ALT 91 H, Alkaline Phosphatase 120, Troponin I < 0.01, Total Protein 7.0, Albumin 3.9, Globulin 3.1, Albumin/Globulin Ratio 1.3, Lipase 96 09/01/23 17:00: Troponin I < 0.01 09/01/23 13:30 09/01/23 13:30 Orders (Tests/Meds): ED MEDICATIONS Discontinued Medications Generic Name Dose Route Start Last Admin Trade Name Freq PRN Reason Stop Dose Admin Lactated Ringer's 1,000 mls @ 999 mls/hr 09/01/23 13:44 09/01/23 13:53 Lactated Ringer's 1000 Ml Bag IV 09/01/23 14:44 999 mls/hr .Q1H1M ONE Administration Iopamidol 70 ml 09/01/23 14:54 09/01/23 14:56 Iopamidol-370 (76%);100ml Bottle IV 09/01/23 14:55 70 ml ONCE ONE Administration Potassium Chloride 40 meq 09/01/23 15:25 09/01/23 15:33 Potassium Chloride 20meq/15ml Udc PO 09/01/23 15:26 40 meq ONCE ONE Administration Sodium Chloride 40 ml 09/01/23 14:54 09/01/23 14:55 0.9 % Sodium Chloride 50 Ml Vial IV 09/01/23 14:55 40 ml ONCE ONE Administration Sodium Chloride 10 ml 09/01/23 14:54 09/01/23 14:56 Sodium Chloride 0.9% 10ml Syr (Rad Only) IV 09/01/23 14:55 10 ml ONCE ONE Administration ORDERS Category Date Time Status CT abdomen pelvis w con Stat Cat Scan 09/01/23 13:[address] angio chest PE protocol Stat Cat Scan 09/01/23 13:44 Completed Complete Blood Count Auto Diff Stat Lab 09/01/23 13:30 Completed Comprehensive Metabolic Panel Stat Lab 09/01/23 13:30 Completed Lipase Stat Lab 09/01/23 13:30 Completed Magnesium Stat Lab 09/01/23 13:30 Completed Phosphorous Stat Lab 09/01/23 13:30 Completed Troponin I Q3H Lab 09/01/23 17:00 Completed Troponin I Q3H Lab 09/01/23 19:45 Ordered Troponin I Stat Lab 09/01/23 13:30 Completed ECG initial Besson Routine Y 09/01/23 13:27 Completed ECG Data Tracing #1: I reviewed this ECG and interpreted as documented below: Normal sinus rhythm with a ventricular rate of 80 bpm. Left anterior fascicular block noted. No acute ST elevations concerning for STEMI. ECG initial impression date: 09/01/23 ECG initial impression time: 13:28 Medical Decision Narrative: In summary, this patient is a 83-year-old female presenting to the Emergency Department for evaluation of chest pain, cough, progressively worsening dysphagia, unintentional weight loss, and decreased urine output. Differential diagnoses considered include but are not limited to viral syndrome, pneumonia, achalasia, esophageal stricture, malignancy, ACS, chronic pancreatitis, MATIAS, failure to thrive. Ruling out the most morbid conditions drove assessment. On exam, the patient is nontoxic-appearing with reassuring vital signs on cardiac telemetry. EKG is reassuring. Workup included CBC, CMP, lipase, troponin, magnesium, phosphorus, CT PE protocol, and CT abdomen and pelvis with IV contrast. Patient was given a bolus of IV fluids. Overall, advised the patient that this is likely a manifestation of her chronic achalasia, for which she has not been following up outpatient for evaluation and management. Workup will at least help to potentially exclude other causes, such as malignancy, PE, pneumonia, and other concerns. Labs were obtained that demonstrated mild hypokalemia, which oral replacement was ordered. Patient also has leukopenia. Remainder of labs and imaging are pending at time of signout to the oncoming provider, Dr. Grant. <Savannah Grant MD - Last Filed: 09/01/23 17:49> Vital Signs: 09/01/23 14:00 09/01/23 13:30 09/01/23 14:32 Temperature 97.5 F L Temperature Source Oral Pulse Rate 72 80 Pulse Rate [Left] 78 Respiratory Rate 18 Blood Pressure 185/82 H 188/72 H Blood Pressure [Right Arm] 177/91 H Blood Pressure Mean [Right Arm] 119 Blood Pressure Source [Right Arm] Automatic Cuff Blood Pressure Position [Right Arm] Sitting 02 Sat by Pulse Oximetry 95 96 95 Oxygen Delivery Method Room Air Room Air Room Air 09/01/23 15:30 09/01/23 16:00 09/01/23 16:30 Temperature Temperature Source Pulse Rate 68 64 69 Pulse Rate [Left] Respiratory Rate Blood Pressure 149/69 H 154/67 H 139/61 Blood Pressure [Right Arm] Blood Pressure Mean [Right Arm] Blood Pressure Source [Right Arm] Blood Pressure Position [Right Arm] 02 Sat by Pulse Oximetry 93 L 92 L 93 L Oxygen Delivery Method Room Air Room Air Room Air 09/01/23 17:00 Temperature Temperature Source Pulse Rate 70 Pulse Rate [Left] Respiratory Rate Blood Pressure 160/82 H Blood Pressure [Right Arm] Blood Pressure Mean [Right Arm] Blood Pressure Source [Right Arm] Blood Pressure Position [Right Arm] 02 Sat by Pulse Oximetry 94 L Oxygen Delivery Method Room Air Lab Data Lab Results 09/01/23 13:30: WBC 3.8 L, RBC 4.93, Hgb 16.0, Hct 48.7 H, MCV 98.8, MCH 32.5 H, MCHC 32.9, RDW 13.3, Plt Count 112 L, MPV 9.4, Neut % (Auto) 56.7, Lymph % (Auto) 33.3, [place] % (Auto) 9.5 H, Eos % (Auto) 0.2, Baso % (Auto) 0.4, Neut # (Auto) 2.2, Lymph # (Auto) 1.3, [place] # (Auto) 0.4, Eos # (Auto) 0.0, Baso # (Auto) 0.0, Sodium 140, Potassium 3.2 L, Chloride 104, Carbon Dioxide 31 H, Anion Gap 8.2, BUN 16, Creatinine 0.60, Estimated GFR 95, Est GFR ( Amer) 116, Glucose 122 H, Calcium 9.0, Phosphorus 3.8, Magnesium 2.1, Total Bilirubin 0.7, AST 122 H, ALT 91 H, Alkaline Phosphatase 120, Troponin I < 0.01, Total Protein 7.0, Albumin 3.9, Globulin 3.1, Albumin/Globulin Ratio 1.3, Lipase 96 09/01/23 17:00: Troponin I < 0.01 Orders (Tests/Meds): ED MEDICATIONS Discontinued Medications Generic Name Dose Route Start Last Admin Trade Name Freq PRN Reason Stop Dose Admin Lactated Ringer's 1,000 mls @ 999 mls/hr 09/01/23 13:44 09/01/23 13:53 Lactated Ringer's 1000 Ml Bag IV 09/01/23 14:44 999 mls/hr .Q1H1M ONE Administration Iopamidol 70 ml 09/01/23 14:54 09/01/23 14:56 Iopamidol-370 (76%);100ml Bottle IV 09/01/23 14:55 70 ml ONCE ONE Administration Potassium Chloride 40 meq 09/01/23 15:25 09/01/23 15:33 Potassium Chloride 20meq/15ml Udc PO 09/01/23 15:26 40 meq ONCE ONE Administration Sodium Chloride 40 ml 09/01/23 14:54 09/01/23 14:55 0.9 % Sodium Chloride 50 Ml Vial IV 09/01/23 14:55 40 ml ONCE ONE Administration Sodium Chloride 10 ml 09/01/23 14:54 09/01/23 14:56 Sodium Chloride 0.9% 10ml Syr (Rad Only) IV 09/01/23 14:55 10 ml ONCE ONE Administration ORDERS Category Date Time Status CT abdomen pelvis w con Stat Cat Scan 09/01/23 13:[address] angio chest PE protocol Stat Cat Scan 09/01/23 13:44 Completed Complete Blood Count Auto Diff Stat Lab 09/01/23 13:30 Completed Comprehensive Metabolic Panel Stat Lab 09/01/23 13:30 Completed Lipase Stat Lab 09/01/23 13:30 Completed Magnesium Stat Lab 09/01/23 13:30 Completed Phosphorous Stat Lab 09/01/23 13:30 Completed Troponin I Q3H Lab 09/01/23 17:00 Completed Troponin I Q3H Lab 09/01/23 19:45 Ordered Troponin I Stat Lab 09/01/23 13:30 Completed ECG initial Besson Routine Y 09/01/23 13:27 Completed Medical Decision Narrative: In summary, this patient is a 83-year-old female presenting to the Emergency Department for evaluation of chest pain, cough, progressively worsening dysphagia, unintentional weight loss, and decreased urine output. Differential diagnoses considered include but are not limited to viral syndrome, pneumonia, achalasia, esophageal stricture, malignancy, ACS, chronic pancreatitis, MATIAS, failure to thrive. Ruling out the most morbid conditions drove assessment. On exam, the patient is nontoxic-appearing with reassuring vital signs on cardiac telemetry. EKG is reassuring. Workup included CBC, CMP, lipase, troponin, magnesium, phosphorus, CT PE protocol, and CT abdomen and pelvis with IV contrast. Patient was given a bolus of IV fluids. Overall, advised the patient that this is likely a manifestation of her chronic achalasia, for which she has not been following up outpatient for evaluation and management. Workup will at least help to potentially exclude other causes, such as malignancy, PE, pneumonia, and other concerns. Labs were obtained that demonstrated mild hypokalemia, which oral replacement w as ordered. Patient also has leukopenia. Remainder of labs and imaging are pending at time of signout to the oncoming provider, Dr. Grant. I assumed care of patient pending imaging studies. There was still issues with having the imaging crossover but I was able to print the read and it does show no PE or acute abnormality but does show an enlarged esophagus consistent with history of achalasia. Given her otherwise reassuring labs and she was able to tolerate oral liquids, recommended patient take thin solids and follow-up closely with her GI who she previously followed with who is now located in [place] and will also provide GI follow-up with Dr. Dickens. Patient agreeable with plan and discharged in stable condition. Critical Care <Agatha Oliver, - Last Filed: 09/01/23 15:27> Critical Care Time Critical Care Time: No
[2023-09-01] MEDS: 0.9 % SODIUM CHLORIDE 50 ML VIAL 40 ML IV (14:55)
[2023-09-01] MEDS: SODIUM CHLORIDE 0.9% 10ML SYR (RAD ONLY) 10 ML IV (14:56)
[2023-09-01] MEDS: IOPAMIDOL-370 (76%);100ML BOTTLE 70 ML IV (14:56)
--- NOTE | 2023-09-01 15:01 | PC.NURSE ---
PT ARRIVED BACK TO ROOM FROM CT
--- NOTE | 2023-09-01 15:19 | PC.NURSE ---
PT AMBULATED TO RESTROOM WITH MY ASSIST. PT WILL RING CALL LIGHT IN RESTROOM WHEN FINISHED
[2023-09-01] MEDS: POTASSIUM CHLORIDE 20MEQ/15ML UDC 40 MEQ PO (15:33)
--- NOTE | 2023-09-01 15:48 | PC.NURSE ---
pt rounded on no needs
[2023-09-01 17:36] LABS: Troponin I < 0.01 ng/ml (0.00-0.034)
--- NOTE | 2023-09-01 17:48 | PC.NURSE ---
rounded on pt states she was okay no needs,visitor at bs
== END 2023-09-01 18:06 | disposition home or self-care (01) ==
PROVIDERS: Emergency Medicine; Emergency Provider Emergency Medicine
DX: R07.9 Chest pain, unspecified (principal); K22.0 Achalasia of cardia; R63.4 Abnormal weight loss; R13.10 Dysphagia, unspecified; R05.9 Cough, unspecified; I44.4 Left anterior fascicular block; E87.6 Hypokalemia
CPT/HCPCS: 36415; 71275; 74177; 80053; 83690; 83735; 84100; 84484; 85025; 93005; 96360; 99285; Q9967

== ENCOUNTER 2023-10-20 10:26 | Outpatient (CLI) | payer MEDICARE, OTHER, SELFPAY | END 2023-10-20 23:59 | disposition home or self-care (01) | LOC: RT 10:29 | PROVIDERS: PCP Nurse Practitioner; Visit Provider Physician Assistant | DX: R00.0 Tachycardia, unspecified (principal); R07.9 Chest pain, unspecified | CPT/HCPCS: 93270 ==

== ENCOUNTER 2023-10-28 12:52 | Outpatient (CLI) | payer MEDICARE, OTHER, SELFPAY ==
--- NOTE | 2023-10-28 12:56 | CA_ITS ---
APPROVED REPORT EXAM: Comprehensive 2D, Doppler, and color-flow Echocardiogram Video Game Engineer: Marci Dexter RDCS Ht: 5 ft 4 in Wt: 105lbs BSA: 1.49 BP: 116/68 mmHg Indications: 2D Dimensions LA Volume 47.50 mL LA Volume Index 31.88 mL/m2 (M/F) 16-34 M-Mode Dimensions RVDd 1.50 cm (0.9-2.6) LA Diam 3.64 cm (1.9-4.0) LVDd 5.58 cm (3.5-5.7) LVDs 4.34 cm (3.5-5.7) IVSd 0.59 cm (0.6-1.1) PWd 0.69 cm (0.6-1.1) EF (Teich) 44.30% FS 22.20% EDV (Teich) 152.40 mL ESV (Teich) 84.90 mL LV Diastology E Decel Time 290 (160-240 msec) E/A Ratio 0.6 Aortic Valve ROSELYN Index 0.97 cm2/m2 AoV Peak Jakob. 243.0 (50-130 cm/s) AI PHT 424.00 ms AO Peak GR. 23.70 mmHg AO Mean GR. 11.70 (<5 mmHg) AO VTI 48.8 (18-25 cm) ROSELYN (VTI) 1.47 (2.5-4.5 cm2) Mitral Valve MV E Max Jakob. 47.0 (40-130 cm/s) MV A Velocity 79.0 (40-130 cm/s) E/A Ratio 0.60 MV PHT 85.0 ms Tricuspid Valve TR P. Velocity 211.00 cm/s RAP Estimate 10.00 mmHg RVSP 27.90 mmHg Left Ventricle The left ventricle is normal size. Left ventricular systolic function is mildly decreased. There is normal left ventricular wall thickness. There is mild global hypokinesis present. There is moderate hypokinesis of the inferior septal LV wall. Grade 1 diastolic dysfunction is present. There is a possible mobile echodensity noted in the distal inferior septal LV wall, measuring 1.2 cm in diameter. LVEF is 45%. Right Ventricle The right ventricle is mildly dilated. The right ventricular systolic function is normal. Atria Left atrium is mildly dilated. Right atrium is mildly dilated. Aortic Valve The aortic valve is mildly thickened. Mild aortic stenosis. ROSELYN is 2.0 cm2. Peak velocity 2.6 m/s. Mean AV gradient 13 mmHg. Max AV gradient 26 mmHg. Mild aortic regurgitation. Mitral Valve The mitral valve leaflets are mildly thickened. No evidence of mitral valve stenosis. Mild mitral regurgitation. Tricuspid Valve The tricuspid valve leaflets are thin and pliable. Mild tricuspid regurgitation. RVSP is 20-25 mmHg. Pulmonic Valve The pulmonary valve is normal in structure. Trace pulmonic regurgitation. Great Vessels The aortic root is normal in size. The ascending aorta is not well-visualized. IVC is normal in size and collapses >50% with inspiration. Pericardium There is no pericardial effusion. Other Information Study Quality: Technically Difficult Conclusion Technically difficult study due to poor acoustic windows. Mildly reduced LV systolic function (LVEF 45%). Moderate hypokinesis of the inferior septal LV wall. Possible mobile echodensity noted in the distal inferior septal LV wall, measuring 1.2 cm in diameter. Mild RV dilation. Mild biatrial dilation. Mild MR, mild AI, mild TR. Mild (ROSELYN is 2.0 cm2. Peak velocity 2.6 m/s. Mean AV gradient 13 mmHg. Max AV gradient 26 mmHg). In the setting of presence of possible mobile LV echodensity, CHEN is first recommended to evaluate for LV thrombus vs. thickened papillary muscles. Electronically signed by : Autumn Wilkinson MD 11/02/2023 00:35:09
== END 2023-10-28 23:59 ==
LOC: RT 12:53
PROVIDERS: PCP Nurse Practitioner; Visit Provider Nurse Practitioner
DX: I35.0 Nonrheumatic aortic (valve) stenosis (principal); R94.31 Abnormal electrocardiogram [ECG] [EKG]
CPT/HCPCS: 93306

== ENCOUNTER 2023-11-18 09:54 | Outpatient (CLI) | payer MEDICARE, OTHER, SELFPAY ==
--- NOTE | 2023-11-18 09:59 | MR_ITS ---
APPROVED REPORT Transition Of Care Specialist: NormalCLINICAL INDICATION Suspected LV mass on TTE TECHNIQUE Image Acquisition: Cardiac magnetic resonance (CMR) was performed on Siemens Espree MRI 1.5T scanner. Software platform sequences were performed using the Siemens [employer] MR B19 platform. A set of three-plane, low-resolution, large [id number] localizers were initially acquired. Then axial, coronal, sagittal TrueFISP, as well as axial HASTE images, were obtained. These were followed by gated TrueFISP breathold cinematic sequences obtained in the short axis with 8 mm slices and 2 mm gaps, 2-chamber (vertical long axis), 3-chamber, 4-chamber (horizontal long axis). A bolus of contrast was injected intravenously with first-pass sequences obtained in the short axis and four-chamber planes. After approximately 10 minutes, a TI director visual sequence was performed to determine the optimal TI time. Using the optimized TI time, delayed contrast enhancement segmented inversion???recovery TurboFLASH sequences were obtained in the short axis, 2-chamber, 3-chamber, and 4-chamber projections. 2D-velocity phase mapping was performed. Functional parameters were calculated by offline analysis on an independent workstation ([employer], [employer]). Contrast: ProHance??? (Gadoteridol) FINDINGS MORPHOLOGY AND FUNCTION Left ventricle: The left ventricle is normal in size. The indexed left ventricular end-diastolic volume (LVEDVi) is 89 ml/m2 (reference range 57-105 ml/m2 in males, 56-96 ml/m2 in females). Low- normal left ventricular systolic function is present. There is normal left ventricular wall thickness. There are no regional wall motion abnormalities noted. There is no evidence of LV mass. The papillary muscles appear prominent. LVEF is calculated at 52.6% (reference range 57-77%). Right ventricle: The right ventricle is normal in size. The indexed right ventricular end-diastolic volume (RVEDVi) is 87 ml/m2 (reference range 61-121 ml/m2 in males, 48-112 ml/m2 in females). Normal right ventricular systolic function is present. RVEF is calculated at 52.5% (reference range 52-72% in males, 51-71% in females). Atria: The left atrium is normal in size. The maximum indexed left atrial volume is 49 ml/m2 (reference range 26-52 ml/m2 in males, 27-53 ml/m2 in females). The right atrium is normal in size. The maximum indexed right atrial volume is 45 ml/m2 (reference range 18-90 ml/m2). Aorta: The diameter of the aortic annulus is normal, measuring 24 mm (coronal view reference range 21-30 mm in males, 19-27 mm in females). The diameter of the aortic sinus is normal, measuring 28 mm (coronal view reference range 25-42 mm in males, 24-36 mm in females). The diameter of the sinotubular junction is normal, measuring 26 mm (coronal view reference range 18-32 mm in males, 18-28 mm in females). The diameters of the ascending and descending thoracic aorta are normal. Main pulmonary artery: The main pulmonary artery diameter is normal. Pericardium: The pericardial thickness is normal. The pericardial thickness measures 1.0 cm (normal < 4.0 cm). There is no pericardial effusion. VALVES The valvular morphologies in the visualized sequences appear normal. There is no significant valvular stenosis or regurgitation of the mitral, aortic, tricuspid, or pulmonic valve noted visually. Systolic anterior motion of the mitral valve is not visualized. Ratio of pulmonary to systemic flow, Qp:Qs ratio = 1.0 (normal < or = 1.2), demonstrating no evidence of hemodynamically significant shunt. TISSUE CHARACTERIZATION Resting Perfusion: Normal myocardial blood flow at rest. No evidence of resting hypoperfusion. Myocardial Fibrosis and/or edema: Normal gadolinium kinetics are present. No evidence of late gadolinium enhancement is noted, consistent with absence of myocardial scarring, infarction, or necrosis. T2-weighted imaging demonstrates no evidence of myocardial edema or inflammation. OTHER No other significant findings are noted. However, this exam is focused on the cardiac structure and function. IMPRESSION Normal LV size with low normal LV systolic function. LVEDVi= 89 ml/m2 and LVEF= 52.6%. Normal RV size with normal RV systolic function. RVEDVi= 87 ml/m2 and RVEF= 52.5%. No evidence of LV mass. Papular muscles appear prominent (likely to correlate with the finding of suspected mass previously visualized on TTE). No atrial enlargement. No CMR evidence of myocardial scarring, infarction, or necrosis. No evidence of myocardial edema or inflammation. Perfusion analysis demonstrates normal blood flow at rest with no evidence of resting hypoperfusion. Ratio of pulmonary to systemic flow, Qp:Qs ratio = 1.0 (normal < or = 1.2), demonstrating no evidence of hemodynamically significant shunt. Overall, this CMR demonstrates overall normal biventricular systolic function with no evidence of cardiomyopathy. There is no evidence of LV mass. The previously suspected LV mass seen on TTE likely correlates with prominence of the LV papillary muscles (normal finding). COMPARISON None CRITICAL RESULT None COMMUNICATION Per this written report The findings of this cardiac MR were reviewed, reported, and signed by Tavo Wilkinson MD (Preschool Assistant Teacher). Conclusion Electronically signed by : Autumn Wilkinson MD 11/24/2023 01:45:59
[2023-11-18 10:31] LABS: Blood Urea Nitrogen 19 mg/dl (7-17); Estimated Glomerular Filt Rate 80 ml/min (>60); GFR (African American) 97 ML/MIN (>60)
[2023-11-18] MEDS: SODIUM CHLORIDE 0.9% 50ML BAG 50 ML IV (12:06)
[2023-11-18] MEDS: GADOTERIDOL INJ 17ML SYRINGE 10 ML IV (12:06)
== END 2023-11-18 23:59 | disposition home or self-care (01) ==
LOC: RAD 09:55
PROVIDERS: PCP Nurse Practitioner; Visit Provider Physician Assistant
DX: I51.89 Other ill-defined heart diseases (principal)
CPT/HCPCS: 36415; 75561; 82565; 84520; A9576

== ENCOUNTER 2025-02-23 20:32 | Emergency (ER) | payer MEDICARE, OTHER, SELFPAY ==
[2025-02-23] VITALS (8 sets, daily range): BP systolic 139–185; BP diastolic 71–104; PULSE 74–96; RESP 13–22; TEMP 36.6–37.1; O2SAT 93–98; BMI 21.4
--- NOTE | 2025-02-23 20:39 | ECG_ITS ---
APPROVED REPORT Exam: Resting ECG HR:85 bpm ECG Measurements Heart Rate 85 AXES KS 158 P 76 QRSd 122 QRS -65 QT 395 T 58 QTc 437 Conclusion SINUS RHYTHM RIGHT BUNDLE BRANCH BLOCK [120+ ms QRS DURATION, UPRIGHT V1, 40+ ms S IN I/aVL/V4/V5/V6] LEFT ANTERIOR FASCICULAR BLOCK [QRS AXIS <= -45, QR IN I, RS IN II] LEFT VENTRICULAR HYPERTROPHY AND ST-T CHANGE [VOLTAGE CRITERIA PLUS ST/T ABNORMALITY] Normal sinus rhythm. No ST elevation or depression. QTc of 437 ABNORMAL ECG UNCONFIRMED REPORT Electronically signed by : TALIA MARTINEZ, 02/23/2025 22:31:48
--- OUTSIDE RECORDS SUMMARY | 2025-02-23 20:42 | XMS_ITS | Clinical Summary ---
Author Organization [facility] Address [address] [place] [address] Phone Care Team Providers Care Drafting Instructor Name Role Phone Quintin Kaur MD Primary Care Provider [phone] Allergies Active Allergy Reactions Criticality Noted Date Comments Diphenhydramine Hcl 09/01/2013 Zinc 09/01/2013 benadryl cream Medications lactobacillus acidoph & bulgar (FLORANEX) 1 million cell Tab tablet Take 1 Tab by mouth 2 times daily. Active atorvastatin (LIPITOR) 20 mg tablet Take by mouth daily. Active multivitamin (THERAGRAN) tablet Take by mouth 2 times daily. Active CALCIUM PHOSPHATE ORAL Take 1 Tab by mouth 2 times daily. Active omeprazole (PRILOSEC) 40 mg capsule Take by mouth 2 times daily. Active naproxen sodium (ANAPROX) 220 mg tablet Take 220 mg by mouth 2 times daily (with meals). 1-2 as needed Active senna (SENOKOT) 8.6 mg tablet Take 8.6 mg by mouth as needed. Takes 4 tablets if no bm 4-5 days Active escitalopram (LEXAPRO) 5 mg tablet Take 1 Tab by mouth daily. 09/03/2013 Active Active Problems Problem Noted Date Diagnosed Date Compression fx, thoracic spine 09/03/2013 Overview (09/03/2013): Old. Pt. W/o pain. HLD (hyperlipidemia) 09/03/2013 Personality disorder 09/03/2013 Thrombocytopenia 09/03/2013 Depression Immunizations Immunization Administration Dates Next Due Pneumococcal Polysaccharide 23 Valent 09/01/2013 Surgical History Surgery Date Site/Laterality Comments TUBAL LIGATION SHOULDER SURGERY Right Medical History Medical History Date Comments Hyperlipidemia Ulcer Osteoarthritis Depression Motion sickness TB (pulmonary tuberculosis) Social History Tobacco Use Types Packs/Day Years Used Date Smoking Tobacco: Never Alcohol Use Standard Drinks/Week Comments No 0 (1 standard drink = 0.6 oz pur e alcohol) Comments Unknown Sex and Gender Information Value Date Recorded Sex Assigned at Not on file Legal Sex Female 6:28 PM EST Gender Identity Not on file Sexual Orientation Not on file Obstetrics History Last Filed Vital Signs Vital Sign Reading Time Taken Comments Blood Pressure 127/68 09/03/2013 7:00 PM EST Pulse 71 09/03/2013 7:00 PM EST Temperature 36.5 C (97.7 F) 09/03/2013 7:00 PM EST Respiratory Rate 16 09/03/2013 7:00 PM EST Oxygen Saturation 99% 09/03/2013 8:12 AM EST Inhaled Oxygen Concentration - - Weight 66 kg (145 lb 8 oz) 09/01/2013 12:[address] Height 162.6 cm (5' 4 ) 09/01/2013 12:31 AM EST Body Mass Index 24.98 09/01/2013 12:31 AM EST Plan of Treatment Health Maintenance Due Date Last Done Comments Wellness Exam Medicare 1943 DTaP/TDaP/Td (1 - Tdap) 1959 Zoster (1 of 2) 1990 Bone Density Screening 2005 Pneumococcal Vaccine 50+ (2 of 2 - PCV) 09/01/2014 09/01/2013 RSV or 60+ (1 - 1-d ose 75+ series) 2015 COVID-19 Vaccine ( - 2023-2 5 season) 2024 Influenza Vaccine (#1) 2025 Hepatitis B Vaccine Aged Out No longe r eligible based on patient's age to complete this topic Meningococcal B Vaccine Aged Out No l onger eligible based on patient's age to complete this topic Insurance [place] [address] [place] [address] [place] FOR [place] Care Teams Drafting Instructor Relationship Specialty Start Date End Date Quintin Kaur MD [address] [place] [address] PCP - General Family Medicine 08/31/13
--- OUTSIDE RECORDS SUMMARY | 2025-02-23 20:42 | XMS_ITS | Clinical Summary ---
Author Organization Healthcare Address [address] [id number] Care Team Providers Care Geodetic Survey Director Name Role Phone Bakari Christian MD Primary Care Provider [phone] Allergies Active Allergy Reactions Criticality Noted Date Comments Diphenhydramine Hives Medium 09/05/2023 Medications diclofenac (Voltaren) 1 % topical gel Place 1-2 g on the skin 4 (four) times a day. Apply as directed to back 50 g 1 09/19/2023 Active LORazepam (Ativan) 0.5 MG tablet Take 2 tablets (1 mg) by mouth every 6 (six) hours if needed for anxiety. Active Active Problems Problem Noted Date Diagnosed Date Severe protein-calorie malnutrition 09/07/2023 Achalasia, esophageal 09/06/2023 History of TIA (transient ischemic attack) 09/06 Resolved Problems Problem Noted Date Diagnosed Date Resolved Date HTN (hypertension) 09/14/2023 TIA (transient ischemic attack) 09/14/2023 09/19/2023 Vomiting, unspecified vomiti ng type, unspecified whether nausea present 09/06/202309/18 Immunizations Immunization Administration Dates Next Due Pneumococcal Polysaccharide PPV23 08/24/2018 Family History Medical History Relation Name Comments Cancer Brother Relation Name Status Comments Brother Social History Tobacco Use Types Packs/Day Years Used Date Smoking Tobacco: Never Smokeless Tobacco: Never Tobacco Cessation:Counseling Given: Not Answered Alcohol Use Standard Drinks/Week Comments Never 0 (1 standard drink = 0.6 oz pur e alcohol) Humiliation, Afraid, Rape, and Kick questionnair e Answer Date Recorded Within the last year, have y ou been afraid of your partner or ex-partner? No 09/06/2023 Within the last year, have y ou been humiliated or emotionally abused in other ways by your partner or ex-partner? No Within the last year, have y ou been kicked, hit, slapped, or otherwise physically hurt by your partner or ex-partner? No 09/06/2023 Within the last year, have y ou been raped or forced to have any kind of sexual activity by your partner or ex-partner? No 09/06/2023 Hunger Vital Sign Answer Date Recorded Within the past 12 months, y ou worried that your food would run out before you got the money to buy more. Never true 09/06/19 24 Within the past 12 months, t he food you bought just didn't last and you didn't have money to get more. Never true 09/06/2023 PRAPARE - Transportation Answer Date Re corded In the past 12 months, has l ack of transportation kept you from medical appointments or from getting medications? No 08/12 In the past 12 months, has l ack of transportation kept you from meetings, work, or from getting things needed for daily living? No 09/06/2023 Housing Stability Vital Sign Answer Vinh e Recorded In the last 12 months, was t here a time when you were not able to pay the mortgage or rent on time? No 09/06/2023 Number of Places Lived in the Last Year Not on f ile 09/06/2023 In the last 12 months, was t here a time when you did not have a steady place to sleep or slept in a alf (including now)? No 09/06/2023 CAGE ASSESSMENT Answer Date Recorded Cage unable to access Not on file 09/06/2023 Cage max number of drinks Not on file 2023 Cage Beverages a week Not on file 09/06/2023 Have you ever felt you should CUT down on your d rinking? 0 09/06/2023 Have you been ANNOYED by people criticizing your drinking? 0 09/06/2023 Have you felt GUILTY about your drinking? 0 09/06/2023 Have you had a drink first t atul in the morning (EYE-FITTER HELPER) to steady your nerves or to get rid of a hangover? 0 09/06/2023 CAGE Questionnaire Score 0 024 Utilities Answer Date Recorded In the past 12 months has th e [employer], gas, oil, or water company threatened to shut off services in your home? No 09/06/2023 Comments Unknown Sex and Gender Information Value Date Recorded Sex Assigned at Not on file Legal Sex Female 8:58 PM EDT Gender Identity Not on file Sexual Orientation Not on file Last Filed Vital Signs Vital Sign Reading Time Taken Comments Blood Pressure 103/67 10/06/2023 10:12 AM EDT Pulse 91 10/06/2023 10:04 AM EDT Temperature 36.5 C (97.7 F) 10/06/2023 10:04 AM EDT Respiratory Rate 18 10/06/2023 10:0 4 AM EDT Oxygen Saturation 97% 10/06/2023 10: 04 AM EDT Inhaled Oxygen Concentration - - Weight 48.4 kg (106 lb 11.2 oz) 024 10:04 AM EDT Height 162.6 cm (5' 4 ) 09/06/2023 7:43 PM EST Body Mass Index 18.32 09/06/2023 7:43 PM EST Plan of Treatment Health Maintenance Due Date Last Done Comments [facility]-Bone Density Scan 1940 [facility]-Depression Screening 1940 [facility]-Medicare Annual Wellness (AWV) 1940 [facility]-Infant/Child/Adol SDOH Screenings 1940 [facility]- SDOH Screenings 1958 [facility]-Adult SDOH Screenings 1958 [facility]-DTaP,Tdap,and Td Vaccines (1 - Tdap) 1959 [facility]-Zoster Vaccines (1 of 2) 1990 [facility]-RSV Vaccine: 60+ Years or (1 - 1-dose 75+ series) 2015 [facility]-Pneumococcal Vaccine: 50+ Years (2 of 2 - PCV) 08/24/2019 08/24/2018, 09/01/2013 AXL-DEXLD-21 Vaccine (1 - 2023- season) 2024 [facility]-Influenza Vaccine (#1) 2025 HPV Vaccines Aged Out No longer eligi ble based on patient's age to complete this topic [facility]-HIB Vaccines Aged Out No longer e ligible based on patient's age to complete this topic [facility]-Hepatitis A Vaccines Aged Out No longer eligible based on patient's age to complete this topic [facility]-IPV Vaccines Aged Out No longer e ligible based on patient's age to complete this topic [facility]-Rotavirus Vaccines Aged Out No lo nger eligible based on patient's age to complete this [place] [address] [facility] Advance Directives * DNR - Ok to intubate (Latest Code Status on File) Date Activated Date Inactivated Comments 09/08/2023 4:55 PM 09/19/2023 9:15 PM Son Justin marks in the room and agreement on decision. Question Answer Comments DNR determined on/before admission date? No Patient has decision-making capacity? Yes * Full Code Date Activated Date Inactivated Comments 09/06/2023 2:36 AM 09/08/2023 4:55 PM Question Answer Comments Patient has decision-making capacity? Yes Care Teams Geodetic Survey Director Relationship Specialty Start Date End Date Bakari Christian MD [address] [place] [address] [address] [id number] [id number] [facility] - General 09/05/23
--- OUTSIDE RECORDS SUMMARY | 2025-02-23 20:42 | XMS_ITS | Clinical Summary ---
Author Organization [facility] Address [address] [place] [address] Care Team Providers Care Internal Control Consultant Name Role Phone Bakari Christian MD Primary Care Provider [phone] Allergies No known active allergies Medications ondansetron ODT (ZOFRAN-ODT) [address] 1 tablet on the tongue 4 (Four) Times a Day As Needed for Nausea. 16 tablet Active Social History Tobacco Use Types Packs/Day Years Used Date Smoking Tobacco: Never Smokeless Tobacco: Never Tobacco Cessation:Counseling Given: Not Answered Alcohol Use Standard Drinks/Week Comments Not Currently 0 (1 standard drink = 0.6 oz pur e alcohol) Abuse Screen Answer Date Recorded Feels Unsafe at Home or Work/School no 09/04/2023 Feels Threatened by Someone no 08/12 Does Anyone Try to Keep You From Having Contact with Others or Doing Things Outside Your Home? no 09/04/2023 Physical Signs of Abuse Present no 09/04/2023 Housing Stability Answer Date Recorded Current Living Arrangements Not on file 08/12 Potentially Unsafe Housing Conditions Not on michelle e 09/04/2023 Family and Community Support Answer Vinh e Recorded Help with Day-to-Day Activities Not on file 09/04/2023 Lonely or Isolated Not on file 09/04/2023 Employment Answer Date Recorded Do you want help finding or keeping work or a cheri b? Not on file 09/04/2023 Disabilities Answer Date Recorded Concentrating, Remembering, or Making Decisions Difficulty Not on file 09/04/2023 Doing Errands Independently Difficulty Not on fi le 09/04/2023 Education Answer Date Recorded Help with school or training? Not on file Preferred Language Not on file 09/04/2023 Comments Unknown Sex and Gender Information Value Date Recorded Sex Assigned at Not on file Legal Sex Female 6:10 PM EST Gender Identity Not on file Sexual Orientation Not on file Last Filed Vital Signs Vital Sign Reading Time Taken Comments Blood Pressure 164/81 09/04/2023 9:00 PM EST Pulse 90 09/04/2023 9:00 PM EST Temperature 36.6 C (97.8 F) 09/04/2023 6:11 PM EST Respiratory Rate 16 09/04/2023 9:00 PM EST Oxygen Saturation 91% 09/04/2023 9:00 PM EST Inhaled Oxygen Concentration - - Weight 47.2 kg (104 lb) 09/04/2023 6:11 PM EST Height 162.6 cm (5' 4 ) 09/04/2023 6:11 PM EST Body Mass Index 17.85 09/04/2023 6:11 PM EST Plan of Treatment Health Maintenance Due Date Last Done Comments ANNUAL PHYSICAL 1940 DXA SCAN 1940 TDAP/TD VACCINES (1 - Tdap) 1959 ZOSTER VACCINE (1 of 2) 1990 RSV Vaccine - Adults (1 - 1- dose 75+ series) 2015 Pneumococcal Vaccine 50+ (2 of 2 - PCV) 08/24/2019 0 08/24/2018, 09/01/2013 COVID-19 Vaccine (1 - season) 2024 INFLUENZA VACCINE 04/10/2025 Insurance MEDICARE A & B Member Subscriber Plan / Payer (Ef fective 2005-Present) Name:Pavithra Wheatley Member ID:[id number] Relation to Subscriber:Self Name:Pavithra Wheatley Subscriber ID:[id number] Payer ID:[id number] Group ID:Not on file Type:Not on file Address: [facility] [id number] [address] Care Teams Internal Control Consultant Relationship Specialty Start Date End Date Bakari Christian MD [address] [place] [address] PCP - General Family Medicine 09/04/23
--- NOTE | 2025-02-23 20:49 | CT_ITS ---
PROCEDURE INFORMATION: Exam: CT Cervical Spine Without Contrast Exam date and time: 02/23/2025 9:04 PM Age: 84 years old Clinical indication: Injury or trauma; Fall; Blunt trauma; Additional info: Fall, head trauma TECHNIQUE: Imaging protocol: Computed tomography of the cervical spine without contrast. Total images: 590 Radiation optimization: All CT scans at this facility use at least one of these dose optimization techniques: automated exposure control; mA and/or kV adjustment per patient size (includes targeted exams where dose is matched to clinical indication); or iterative reconstruction. COMPARISON: CT HEAD/BRAIN WO CON 02/23/2025 9:02 PM FINDINGS: Bones: Osteopenia. Maintained cervical lordosis. Cervical vertebral body height and alignment is preserved. Minor anterior wedging of the T1 vertebral body appears nonacute. The base of the dens and the C1 and C2 articulations are maintained with moderate degenerative arthropathy. The cervicooccipital junction is intact. The facet joints are appropriately aligned. Moderate degenerate facet joint spondylosis on the left at C2-C3 and C3-C4. Mild scattered degenerative spondylosis elsewhere. The posterior elements are intact. Moderate degenerate disc disease uniformly affecting all levels from C3 through C7. Associated small posterior projecting disc osteophyte complex at all levels. Multilevel bilateral neural foraminal encroachment. Limited spinal canal contents secondary to attenuation artifact. Lungs: Right apical scarring. Esophagus: Considerable gaseous distension of the proximal esophagus including layering ingested material. Thyroid: Dystrophic calcification right thyroid lobe. Atrophic thyroid gland. Vasculature: Mild calcifications bilateral carotid artery bifurcations. Soft tissues: No prevertebral soft tissue swelling. IMPRESSION: 1. No acute cervical fracture or traumatic subluxation. 2. Moderate multilevel degenerative disc disease and facet joint spondylosis. 3. Considerable gaseous distension of the proximal esophagus likely reflecting achalasia.
--- NOTE | 2025-02-23 20:49 | XR_ITS ---
PROCEDURE INFORMATION: Exam: XR Right Elbow Exam date and time: 02/23/2025 9:05 PM Age: 84 years old Clinical indication: Injury or trauma; Fall; Blunt trauma (contusions or hematomas); Elbow; Right; Additional info: Fall, right elbow pain TECHNIQUE: Imaging protocol: Radiologic exam of the right elbow. Views: 1 or 2 views. COMPARISON: No relevant prior studies available. FINDINGS: Bones/joints: Degenerative change of the of the joint space. Soft tissues: Mild swelling about the dorsal forearm. IMPRESSION: No acute osseous abnormality.
--- NOTE | 2025-02-23 20:49 | CT_ITS ---
PROCEDURE INFORMATION: Exam: CT Head Without Contrast Exam date and time: 02/23/2025 9:02 PM Age: 84 years old Clinical indication: Injury or trauma; Fall; Blunt trauma (contusions or hematomas); Additional info: Fall, head trauma TECHNIQUE: Imaging protocol: Computed tomography of the head without contrast. Total images: 573 Radiation optimization: All CT scans at this facility use at least one of these dose optimization techniques: automated exposure control; mA and/or kV adjustment per patient size (includes targeted exams where dose is matched to clinical indication); or iterative reconstruction. COMPARISON: No relevant prior studies available. FINDINGS: Brain: No acute intracranial hemorrhage, midline shift, or mass. Mild cortical and cerebellar atrophy. Mild to moderate remote white matter small-vessel ischemic changes. No acute territorial infarct. Additional remote deep white matter ischemic changes in the bilateral internal capsule and central joey. Basilar cisterns are preserved. Cerebral ventricles: Mild ventriculomegaly compatible degree of central atrophy. Paranasal sinuses: Single opacified right ethmoid air cell. Sinuses are otherwise clear. Mastoid air cells: Visualized mastoid air cells are well aerated. Bones: Osteopenia. No skull fracture. Soft tissues: Moderate posterior scalp hematoma. No radiopaque foreign body. Vasculature: Moderate to severe calcifications bilateral intracranial internal carotid arteries. IMPRESSION: 1. No acute intracranial process. 2. Moderate posterior scalp hematoma. 3. No skull fracture. 4. Chronic intracranial findings.
--- NOTE | 2025-02-23 20:49 | XR_ITS ---
PROCEDURE INFORMATION: Exam: XR Pelvis Exam date and time: 02/23/2025 9:05 PM Age: 84 years old Clinical indication: Injury or trauma; Fall; Blunt trauma (contusions or hematomas); Bilateral; Pelvic region; Additional info: Fall, buttock pain TECHNIQUE: Imaging protocol: Radiologic exam of the pelvis. Views: 1 or 2 view. COMPARISON: CT ABDOMEN PELVIS W CON 09/01/2023 2:37 PM FINDINGS: Bones/joints: Diffuse degenerative change of the visualized osseous structures. Bones appear somewhat demineralized. Soft tissues: Unremarkable. IMPRESSION: No acute findings.
--- NOTE | 2025-02-23 20:51 | XR_ITS ---
PROCEDURE INFORMATION: Exam: XR Chest Exam date and time: 02/23/2025 9:05 PM Age: 84 years old Clinical indication: Injury or trauma; Fall; Blunt trauma (contusions or hematomas) TECHNIQUE: Imaging protocol: Radiologic exam of the chest. Views: 1 view. COMPARISON: CT ANGIO CHEST PE PROTOCOL 09/01/2023 2:37 PM FINDINGS: Lungs: Scattered scarring/atelectasis of the lungs. Pleural spaces: Unremarkable. No pleural effusion. No pneumothorax. Heart/Mediastinum: Esophagus again appears prominent. Vasculature: Atherosclerotic disease of the aortic arch. Bones/joints: No displaced rib fractures. Diffuse degenerative change of the visualized osseous structures. Multiple compressed appearing vertebral bodies which are similar in scope from prior comparison. Organs: Cholecystectomy clips. IMPRESSION: 1. No acute findings. 2. No displaced rib fractures, if there is point tenderness, consider cross-sectional evaluation. 3. No obvious new compression fracture of the spine given limitation of single frontal projection, if there is back pain, consider cross-sectional evaluation.
--- NOTE | 2025-02-23 20:51 | HMH.EDGENADL ---
Discharge Plan Disposition Patient Disposition: Home, Self-Care Prescriptions Prescriptions: No Action docusate sodium 100 mg capsule 100 mg PO DAILY montelukast [Singulair] 10 mg tablet 10 mg feeding tube DAILY acetaminophen [Tylenol] 325 mg capsule 325 mg feeding tube QID PRN melatonin 5 mg capsule feeding tube lorazepam 1 mg/0.5 mL syringe 1 mg feeding tube DAILY PRN Referrals Follow up/Referrals: Provider,Referral, MD [Primary Care Provider, Medical] - See instructions Activity Restrictions/Add. Instructions Additional Instructions/Restrictions: Follow-up with your primary care physician if symptoms do not improve. If you develop any new or worsening symptoms, such as worsening headache, weakness on one or both sides of your body, lethargy, or if you become concerned for your health for any reason, return to the emergency department for evaluation. Clinical Impressions Clinical Impression: Fall, Hematoma of scalp, Abrasion of elbow, right Print Language Print Language: Tajik Discharge ED Provider: Mian Lin Adult HPI General Chief complaint: Fall Stated complaint: Fall Time Seen by Provider: 02/23/25 20:38 Mode of Arrival: EMS Source of Information: Patient and EMS Description of Symptoms (Recalled from ER Triage Doc. by RN): pt presents to the ED d/t falling while walking up the stairs, pt states she sometimes losses balance and her knees are weak at times which caused her to fall. pt states she has hx of small mini strokes. pt is alert, eyes are perrla. pt has bruise to right knee and right shoulder and complains of tailbone pain. History of Present Illness HPI narrative: Pavithra Wheatley is an 84y female with a history of aspiration pneumonia, dysphagia status post feeding tube placement and removal, cholecystectomy, who presents to the emergency department after a fall. Patient states that she had been playing to her grandson all day and was walking up steps on the porch and was 1 step up when she fell backwards. She does state that she has chronic issues lightheadedness and felt like her lightheadedness may have contributed to the fall. She states that she fell backwards and hit her head on the concrete. She denies any loss of consciousness. She states that she is not on any blood thinning medications and does not take aspirin. She was able to stand with assistance and was brought by EMS. She complains of a bump to the back of her head but denies any vision changes or headache. She complains of right elbow pain. She states that she has pain in her buttock but that that is somewhat chronic. Related Data Home Medications ?Medication ?Instructions ?Recorded ?Confirmed acetaminophen 325 mg capsule 325 mg feeding tube QID PRN 10/20/23 11/24/23 (Tylenol) docusate sodium 100 mg capsule 100 mg PO DAILY 10/20/23 11/24/23 lorazepam 1 mg/0.5 mL oral syringe 1 mg feeding tube DAILY PRN 10/20/23 11/24/23 (FOR ORAL USE ONLY) melatonin 5 mg capsule mg feeding tube 10/20/23 11/24/23 montelukast 10 mg tablet 10 mg feeding tube DAILY 10/20/23 11/24/23 (Singulair) Allergies Allergy/AdvReac Type Severity Reaction Status Date / Time diphenhydramine (From Allergy Rash Verified 11/24/23 09:30 Benadryl) [facility] Disclaimer: The information contained in this section may have been updated after the patient was seen, as this information can be updated by other users. Medical History Feeding by G-tube Tachycardia Stroke Acute aspiration pneumonia Uses feeding tube Family History Father Alcoholism Brother Alcoholism Cancer Heart attack Sister Cancer Diabetes Heart attack Kidney disease Stroke Son Hypertension Social History Smoking Status: Never smoker second hand exposure: No alcohol intake: never current occupational status: retired Travel in the last 8 weeks?: None household members: family housing: house caffeine: Yes Have you lived/traveled outside [place] in past 30 days?: No Contact w/someone who lives/traveled outside [place] past 30 days?: No Exposure to someone with infectious disease in past 14 days?: No Do you have a fever (greater than 100.4 F or 38 C)?: No Have you tested positive for COVID-19?: No Exposed to someone with COVID-19 in past 14 days?: No Do you have a sore throat?: No Do you have a cough?: No Do you have any weakness?: No Do you have any diarrhea?: No Are you experiencing any unusual bleeding?: No Do you have any muscle aches/pain?: No Do you have any abdominal pain?: No Are you experiencing loss of taste or smell?: No Other Medical History Have you received the Flu Vaccine for this season: No Have you received the Pneumonia Vaccine: Yes ROS Obtained: Yes Systems reviewed as appropriate & no additional complaints except as documented Physical Exam General General appearance: alert and in no apparent distress Comment: Cervical collar in place Head Head exam: other (Hematoma in the right posterior scalp but no lacerations or bleeding) Eye Eye exam: Present normal appearance, PERRL and EOMI ENT ENT exam: Present normal external ear exam Neck Neck exam: Present full ROM and trachea midline; Absent tenderness Chest Chest inspection: Present symmetric chest wall rise Respiratory Respiratory exam: Present normal lung sounds bilaterally; Absent respiratory distress, wheezes or stridor Cardiovascular Cardiovascular exam: Present regular rate and normal rhythm Abdominal Exam Abdominal exam: Present soft; Absent distention, tenderness, guarding or rebound Extremities Exam Extremities exam: Present normal inspection and tenderness (Right elbow with small abrasion in this area) Back Exam Back exam: Present normal inspection; Absent tenderness (No C/T/L-spine tenderness) Neurological Exam Neurological exam: Present alert and oriented X3 Psychiatric Psychiatric exam: Present normal affect Skin Skin exam: Present warm, dry and rash (Superficial abrasion over the left thoracic paraspinal area without tenderness) Medical Decision Making Medical Records Screening: Per USPSTF and CDC recommendations, given the prevalence of disease in our region, it is our hospital?s policy to screen for HIV and viral Hepatitis for all patients aged 18 and over and those with ongoing risk factors. [place] Inquiry Pt receiving controlled substance: No Vital Signs: 02/23/25 20:35 02/23/25 20:36 02/23/25 20:38 Temperature 97.8 F Temperature Source Oral Pulse Rate 94 H 89 Pulse Rate [Right Radial] 96 H Respiratory Rate 18 Blood Pressure 175/104 H 185/95 H Blood Pressure [Right Arm] 185/95 H Blood Pressure Mean Blood Pressure Mean [Right Arm] 125 Blood Pressure Position [Right Arm] Supine 02 Sat by Pulse Oximetry 96 95 98 Oxygen Delivery Method Room Air 02/23/25 21:30 02/23/25 22:00 02/23/25 22:30 Temperature Temperature Source Pulse Rate 74 86 76 Pulse Rate [Right Radial] Respiratory Rate 13 13 22 Blood Pressure 170/82 H 139/80 157/71 H Blood Pressure [Right Arm] Blood Pressure Mean Blood Pressure Mean [Right Arm] Blood Pressure Position [Right Arm] 02 Sat by Pulse Oximetry 96 96 93 L Oxygen Delivery Method 02/23/25 23:00 02/23/25 23:07 Temperature 98.7 F Temperature Source Pulse Rate 96 H 87 Pulse Rate [Right Radial] Respiratory Rate 17 15 Blood Pressure 156/81 H 156/81 H Blood Pressure [Right Arm] Blood Pressure Mean 91 Blood Pressure Mean [Right Arm] Blood Pressure Position [Right Arm] 02 Sat by Pulse Oximetry 96 Oxygen Delivery Method Lab Data Lab Results 02/23/25 20:34: WBC 5.2, RBC 4.70, Hgb 15.1, Hct 45.6, MCV 97.0, MCH 32.1 H, MCHC 33.1, RDW 12.8, Plt Count 147, MPV 11.4 H, Neut % (Auto) 48.7, Lymph % (Auto) 35.8, Grayson % (Auto) 11.2 H, Eos % (Auto) 1.9, Baso % (Auto) 1.2, Neut # (Auto) 2.5, Lymph # (Auto) 1.9, Grayson # (Auto) 0.6, Eos # (Auto) 0.1, Baso # (Auto) 0.1, Sodium 142, Potassium 3.7, Chloride 106, Carbon Dioxide 30, Anion Gap 9.7, BUN 15, Creatinine 0.60, Estimated Creat Clear 37, Estimated GFR 95, Est GFR ( Amer) 115, Glucose 107 H, Calcium 9.4, Magnesium 2.3, Total Bilirubin 1.0, AST 39 H, ALT 21, Alkaline Phosphatase 93, Troponin I < 0.01, Total Protein 8.0, Albumin 4.4, Globulin 3.6 H, Albumin/Globulin Ratio 1.2, Lipase 62, TSH 3.09, Free T4 1.26 02/23/25 20:34 02/23/25 20:34 Orders (Tests/Meds): ORDERS Category Date Time Status CT cervical spine wo con Stat Cat Scan 02/23/25 20:[address] head/brain wo con Stat Cat Scan 02/23/25 20:49 Completed CXR --portable [XR chest portable] Stat Exams 02/23/25 20:51 Completed Elbow XR right 2 views [XR elbow RT 2V] Stat Exams 02/23/25 20:49 Completed Pelvis XR 1-2 views [XR pelvis 1-2V] Stat Exams 02/23/25 20:49 Completed CBC w/Auto Diff [Complete Blood Count Auto Diff] Stat Lab 02/23/25 20:34 Completed CMP [Comprehensive Metabolic Panel] Stat Lab 02/23/25 20:34 Completed Free T4 (Free Thyroxine) Stat Lab 02/23/25 20:34 Completed Lipase Stat Lab 02/23/25 20:34 Completed Magnesium Stat Lab 02/23/25 20:34 Completed TSH [Thyroid Stimulating Hormone] Stat Lab 02/23/25 20:34 Completed Troponin I Stat Lab 02/23/25 20:34 Completed ECG Data Tracing #1: I reviewed this ECG and interpreted as documented below: Normal sinus rhythm. Right bundle branch block. No ST elevation or depression. QTc normal at 437 Medical Decision Narrative: Pavithra Wheatley is an 84y female with a history of aspiration pneumonia, dysphagia status post feeding tube placement and removal, cholecystectomy, who presents to the emergency department after a fall. Patient states that she had been playing to her grandson all day and was walking up steps on the porch and was 1 step up when she fell backwards. She does state that she has chronic issues lightheadedness and felt like her lightheadedness may have contributed to the fall. She states that she fell backwards and hit her head on the concrete. She denies any loss of consciousness. She states that she is not on any blood thinning medications and does not take aspirin. She was able to stand with assistance and was brought by EMS. She complains of a bump to the back of her head but denies any vision changes or headache. She complains of right elbow pain. She states that she has pain in her buttock but that that is somewhat chronic. On arrival, patient is hemodynamically stable, in no acute distress, breathing comfortably on room air. GCS 15, following commands appropriately. Breath sounds are present bilaterally with no abnormal breath sounds. Abdomen is soft, nontender nondistended. She has a small abrasion over her right elbow. She does have a posterior scalp hematoma but no depressed skull fractures. Pupils are equal round reactive to light. No midline C/T/L-spine tenderness. She has a small abrasion over her left thoracic paraspinal area with no tenderness or deformities. Chest wall without tenderness or deformity. She is moving all extremities. Patient arrived in a cervical collar Differential diagnosis includes, but is not limited to: Intracranial hemorrhage, skull fracture, cervical spine fracture, elbow fracture, pneumothorax, pulmonary contusion, electrolyte derangement, anemia, ACS, traumatic pancreatitis, among others. The most morbid conditions were considered and workup was based on these. Workup in the emergency department included: Chest x-ray, pelvis x-ray, head CT, cervical spine CT, elbow x-ray, CBC with differential, CMP, troponin, lipase, TSH/free T4 Laboratory workup shows no anemia, platelets within normal limits, CMP unremarkable nonactionable with normal glucose of 107. Liver enzymes unremarkable and nonactionable. Troponin less than 0.01. Lipase within normal limits. TSH and free T4 within normal limits. CT imaging of the head and C-spine interpreted by me personally. No intracranial hemorrhage, mass or midline shift. No skull fracture. Patient does have a hematoma on the right posterior scalp. No cervical spine fracture or malalignment. Patient does have findings consistent with achalasia, which is a known issue. X-ray imaging shows no acute fracture, dislocation, rib fracture, pulmonary contusion or pneumothorax. See radiology report for details. patient's C-spine was cleared Via Nexus criteria. On reassessment, patient remained in stable condition and has no additional concerns at this time. Is felt that she is appropriate for discharge given her unremarkable workup today. I advised her to take it easy tomorrow and family states that she often walks with a walker and I encouraged her to do so tomorrow. Return precautions were given. All questions were answered. Family and patient demonstrated understanding and were in agreement this plan. She was then discharged from the emergency department in stable condition peer Critical Care Critical Care Time Critical Care Time: No
[2025-02-23 20:56] LABS: Hematocrit 45.6 % (37.0-47.0); Hemoglobin 15.1 g/dL (12.2-16.2); Immature Granulocytes % 1.2 %; Mean Corpuscular HGB Conc 33.1 g/dL (31.8-35.4); Mean Corpuscular Hemoglobin 32.1 pg (27.0-31.2); Mean Corpuscular Volume 97.0 fl (81-99); Nucleated Red Blood Cells % 0 %; Platelet Count 147 K/mm3 (142-424); Red Blood Count 4.70 M/mm3 (4.20-5.40); Red Cell Distribution Width-SD 45.9 fL; White Blood Count 5.2 K/mm3 (4.8-10.8)
[2025-02-23 21:08] LABS: Albumin Level 4.4 g/dl (3.5-5.0); Chloride 106 mmol/L (98-107); Potassium 3.7 mmoL/L (3.5-5.1); Sodium 142 mmol/L (136-145)
[2025-02-23 21:11] LABS: Alanine Aminotransferase 21 U/L (12-78); Albumin/Globulin Ratio 1.2 (1.1-1.8); Alkaline Phosphatase 93 U/L (38-126); Anion Gap 9.7 mEq/L (5-15); Aspartate Amino Transferase 39 U/L (14-36); Bilirubin,Total 1.0 mg/dl (0.2-1.3); Blood Urea Nitrogen 15 mg/dl (7-17); Calcium 9.4 mg/dl (8.4-10.2); Carbon Dioxide 30 mmol/L (22.0-30.0); Creatinine Clearance Estimated 37 mL/min (50-200); Creatinine,Serum 0.60 mg/dl (0.52-1.04); Estimated Glomerular Filt Rate 95 ml/min (>60); GFR (African American) 115 ML/MIN (>60); Globulin 3.6 g/dL (1.3-3.2); Glucose 107 mg/dl (74-100); Lipase 62 U/L (23-300); Total Protein,Serum 8.0 g/dl (6.3-8.2)
[2025-02-23 21:12] LABS: Magnesium 2.3 mg/dl (1.6-2.3)
[2025-02-23 21:25] LABS: Troponin I < 0.01 ng/ml (0.00-0.034)
[2025-02-23 21:29] LABS: Free T4 (Free Thyroxine) 1.26 ng/dl (0.78-2.19)
[2025-02-23 21:43] LABS: Thyroid Stimulating Hormone 3.09 uIU/mL (0.465-4.68)
--- NOTE | 2025-02-23 22:28 | PC.NURSE ---
C-Collar removed at the request of Dr Lin, CMS intact, AOx4, NAD noted, RR even and non labored, skin pwd.
== END 2025-02-23 23:08 | disposition home or self-care (01) ==
PROVIDERS: Emergency Provider Student in an Organized Health Care Education/Training Program
DX: S00.03XA Contusion of scalp, initial encounter (principal); S50.311A Abrasion of right elbow, initial encounter; S20.412A Abrasion of left back wall of thorax, initial encounter; I45.10 Unspecified right bundle-branch block; W10.8XXA Fall (on) (from) other stairs and steps, initial encounter
CPT/HCPCS: 70450; 71045; 72125; 72170; 73070; 80053; 83690; 83735; 84439; 84443; 84484; 85025; 93005; 99285